=== PATIENT | female | born 1945 | race Caucasian/White ===

== ENCOUNTER 2017-05-04 06:32 | Inpatient (IN) | payer MEDICARE, MEDICAID ==
[2017-05-04] MEDS ORDERED: SODIUM CHLORIDE 0.9% 1,000 ML IV ONE (07:15)
[2017-05-04] MEDS ORDERED: ONDANSETRON 4 MG/2 ML VIAL IM STA (07:16)
[2017-05-04 07:39] LABS: Basophils % (A) 0 %; CH 34.2; CHCM 33.8; Eosinophils % (A) 0 %; HCT 45.6 % (34.0-46.0); HDW 2.36; HGB 14.7 gm/dL (11.4-16.0); Luc # (Auto) 0.03; Luc % (Auto) 1; Lymphocytes # (A) 0.6 k/uL (1.0-4.8); Lymphocytes % (A) 10 %; MCH 32.9 pg (25.0-35.0); MCHC 32.3 g/dL (31.0-37.0); MCV 101.6 fL (80.0-100.0); Mean Platelet Volume 7.3; Monocytes # (A) 0.2 k/uL (0-1.0); Monocytes % (A) 3 %; Neutrophils # (A) 4.9 k/uL (1.3-7.7); Neutrophils % (A) 86 %; RBC 4.49 m/uL (3.80-5.40); RDW 13.1 % (11.5-15.5); WBC 5.7 k/uL (3.8-10.6); WBC (Perox) 5.71
[2017-05-04 07:40] LABS: ALT 232 U/L (9-52); AST 489 U/L (14-36); Alcohol 62 mg/dL; Alkaline Phosphatase 106 U/L (38-126); Anion Gap 21 mmol/L; Blood Urea Nitrogen 9 mg/dL (7-17); Calcium 9.6 mg/dL (8.4-10.2); Carbon Dioxide 15 mmol/L (22-30); Chloride 101 mmol/L (98-107); Glucose 114 mg/dL (74-99); Non-African American GFR(MDRD) >60 (>60 ml/min/1.73 sqM); Salicylate <1.0 mg/dL; Sodium 137 mmol/L (137-145); Total Bilirubin 0.3 mg/dL (0.2-1.3); Total Protein 8.6 g/dL (6.3-8.2)
[2017-05-04 07:43] LABS: Partial Thromboplastin Time 23.8 sec (22.0-30.0); Prothrombin Time 10.3 sec (9.0-12.0)
[2017-05-04 07:50] LABS: Acetaminophen 105.9 ug/mL
[2017-05-04 07:55] LABS: Creatine Kinase 672 U/L (30-135)
[2017-05-04 08:07] LABS: Troponin I <0.012 ng/mL (0.000-0.034)
[2017-05-04 08:08] LABS: Creatine Kinase MB 13.7 ng/mL (0.0-2.4)
[2017-05-04] MEDS ORDERED: METOCLOPRAMIDE 5 MG/ML 2 ML VIAL IVP STA (08:37)
[2017-05-04] MEDS ORDERED: KETAMINE 10 MG/ML 20 ML VIAL IV ONE (09:26)
--- NOTE | 2017-05-04 11:03 | CT ---
EXAMINATION TYPE: CT brain aric barron DATE OF EXAM: 05/04/2017 COMPARISON: NONE HISTORY: Altered mental status, found on ground CT DLP: 1331.6 mGycm Automated exposure control for dose reduction was used. TECHNIQUE: CT scan of the head and cervical spine are performed without contrast. FINDINGS: BRAIN: There are generalized changes of sulcal prominence and ventriculomegaly, compatible with atrop hic change. There is diffuse periventricular white matter lucency, compatible with small vessel ische lisa change. There is no acute focal lesion, mass effect or midline shift. I do not see evidence of in tracranial blood. Visualized portions of the paranasal sinuses and mastoids are clear. No depressed skull fracture is s een. IMPRESSION: NO ACUTE INTRACRANIAL ABNORMALITY. 2. ATROPHIC CHANGE. 3. CHRONIC WHITE MATTER ISCHEMIC CHANGE. CERVICAL SPINE: There are emphysematous changes within the lungs. Prevertebral soft tissues appear normal. There is some loss of the normal cervical lordosis. There is a mild retrograde listhesis of C4 on C5. Alignment is otherwise maintained. Atlantoaxial relationships are normal. There is disc space loss a nd hypertrophic spondylosis at C4-5, C5-6 and C6-7. There is uncovertebral joint disease on the left at C2-3 and C3-4. There is a central disc protrusion present at C4-5. There are mixed spondylitic bar is at C5-6 and C6-7. There is an old fracture of the mid portion of the right clavicle which is gone on to nonunion. There is a healed right third rib fracture. No acute fractures are seen. IMPRESSION: 1. NO ACUTE OSSEOUS LESION. 2. EVIDENCE OF PREVIOUS TRAUMA TO THE RIGHT CLAVICLE AND RIGHT THIRD RIB. 3. FAIRLY MARKED DEGENERATIVE CHANGE. 4. EMPHYSEMATOUS CHANGES WITHIN THE LUNGS.
--- NOTE | 2017-05-04 11:08 | ED ---
Altered Mental Status HPI - General Chief Complaint: Altered Mental Status Stated Complaint: Altered Mental Status Time Seen by Provider: 05/04/17 07:08 Source: EMS Mode of arrival: EMS Limitations: altered mental status - History of Present Illness Initial Comments: 71 years old female, she calls with the help of the neighbors, they called the ambulance, the embolus crew noticed that she has been drinking and she also had a bowel movement was more called surgery . On arrival she was barely talking good or after her arrival home she expressed that she was trying to harm herself and a she stated that she was taking [place] murmur she said she wanted to meet her mom her mom . She is complaining about the headache neck pain no chest pain no shortness of breath she is nauseous she do not like the cervical: She is insisting, requesting treatable to call. I explained her that his cervical collar is tender to protect her. She also has been drinking because of the review of system is not very clear - Related Data Home Medications Medication Instructions Recorded Confirmed Albuterol Sulfate [Proair Hfa] 2 puff INHALATION RT-Q4H PRN 05/06/14 05/04/17 Gabapentin [Neurontin] 400 mg PO TID 05/06/14 05/04/17 Omeprazole [PriLOSEC] 20 mg PO DAILY 05/06/14 05/04/17 Allergies Allergy/AdvReac Type Severity Reaction Status Date / Time Penicillins Allergy Severe Anaphylaxis Verified 05/04/17 13:46 Review of Systems ROS Statement: Those systems with pertinent positive or pertinent negative responses have been documented in the HPI. ROS Other: All systems not noted in ROS Statement are negative. Past Medical History Past Medical History: Asthma, COPD, Deep Vein Thrombosis (DVT), Liver Disease, Rheumatoid Arthritis (RA), Seizure Disorder Additional Past Medical History / Comment(s): HX. PLEURISY A CHILD. PT HAS "COMPROMISED LUNGS" AND HAS HAD NUMEROUS BRONCHITIS AND PNEUMONIA. HX R PNEUMOTHORAX 30 YRS AGO FOLLOWING [facility]- TX WITH CHEST TUBE.SHE HAD NUMEROUS FX AND TEETH WERE KNOCKED. OUT. LIVER ENZYMES HAD BEEN ELEVATED AND COMPLETED A 3 MONTH MEDICATION TX. SHE BECAME ANEMIC DURING THIS TX- HGB IS NOW BACK TO NORMAL. HX RLS. HX OF SEIZURES SHE BELIEVES IS DUE TO RECREATIONAL. DRUG USE A TEEN. ARTHIRITIS BILATERAL KNEES/HIPS/CLAVICAL R/SHOULDERS AND HANDS. osteoporosis. hepatitis C. History of Any Multi-Drug Resistant Organisms: None Reported Past Surgical History: Tonsillectomy Additional Past Surgical History / Comment(s): TONSILLECTOMY AT AGE 6. Past Anesthesia/Blood Transfusion Reactions: No Reported Reaction Past Psychological History: No Psychological Hx Reported Smoking Status: Current some day smoker Past Alcohol Use History: Occasional Past Drug Use History: Marijuana - Past Family History Father Family Medical History: No Reported History Mother Family Medical History: Coronary Artery Disease (CAD), Diabetes Mellitus General Exam Limitations: altered mental status Course Vital Signs 05/04/17 05/04/17 05/04/17 06:35 08:42 10:00 Temperature 94.8 F L Pulse Rate 96 80 94 Respiratory 16 18 18 Rate Blood Pressure 145/74 141/65 168/88 O2 Sat by Pulse 95 98 96 Oximetry 05/04/17 05/04/17 05/04/17 10:21 10:31 10:36 Temperature Pulse Rate 114 H 144 H 127 H Respiratory 18 16 18 Rate Blood Pressure 161/88 220/130 202/117 O2 Sat by Pulse 100 100 100 Oximetry 05/04/17 05/04/17 05/04/17 10:41 10:46 12:00 Temperature Pulse Rate 100 147 H 108 H Respiratory 18 14 18 Rate Blood Pressure 185/104 219/128 173/88 O2 Sat by Pulse 96 100 96 Oximetry 05/04/17 05/04/17 05/04/17 13:00 13:54 13:57 Temperature Pulse Rate 106 H 103 H 103 H Respiratory 18 20 20 Rate Blood Pressure 193/111 156/72 154/72 O2 Sat by Pulse 98 98 98 Oximetry 05/04/17 15:15 Temperature Pulse Rate 109 H Respiratory 18 Rate Blood Pressure 144/69 O2 Sat by Pulse 99 Oximetry Emergency EKG reveals sinus tachycardia heart rate is 14 NE interval is 178 QRS duration is 68 QT/QTc is 370/486 review of this EKG does not reveal any ST elevation, noticed a mild ST depression in V4 V5 and V6 - Reevaluation(s) Reevaluation #1: 05/04/17 11:[address] sent [address] suite twice, we were not unable to complete the CT of head and brain because of the lack of cooperation then weeks white ketamine 60 mg IV finally the report and were able to get the CT of the head or neck 05/04/17 12:04 She was reassessed at 1159, she admits that she is suicidal and she is awaiting psychiatric eval at this time 05/04/17 12:05 Considering her elevated elevated LFTs though she admits that she drinks 6 packs every day and she slightly tender in the right upper quadrant area which on arrival she did know which she didn't mention no widened with the ultrasound report area 05/04/17 16:38 Last Tylenol level was within therapeutic range department of psychiatry has evaluated her, then had a lengthy discussion with me about her elevated LFTs and her nausea, she continues Zofran for the nausea and IV fluids if she still unable to keep fluids down. Psychiatry nurse discussed that with the on-call psychiatrist and he agreed to admit her, hospitalist services could be Consulted she does have a history of hepatitis C and she could follow-up with her GI doctor as outpatient Medical Decision Making - Lab Data Result diagrams: 05/04/17 07:01 05/04/17 07:01 Lab Results 05/04/17 05/04/17 05/04/17 Range/Units 07:01 07:01 07:01 WBC 5.7 (3.8-10.6) k/uL RBC 4.49 (3.80-5.40) m/uL Hgb 14.7 (11.4-16.0) gm/dL Hct 45.6 (34.0-46.0) % MCV 101.6 H (80.0-100.0) fL MCH 32.9 (25.0-35.0) pg MCHC 32.3 (31.0-37.0) g/dL RDW 13.1 (11.5-15.5) % Plt Count 265 (150-450) k/uL Neutrophils % 86 % Lymphocytes % 10 % Monocytes % 3 % Eosinophils % 0 % Basophils % 0 % Neutrophils # 4.9 (1.3-7.7) k/uL Lymphocytes # 0.6 L (1.0-4.8) k/uL Monocytes # 0.2 (0-1.0) k/uL Eosinophils # 0.0 (0-0.7) k/uL Basophils # 0.0 (0-0.2) k/uL PT (9.0-12.0) sec INR (<1.2) APTT (22.0-30.0) sec Sodium 137 (137-145) mmol/L Potassium 4.0 (3.5-5.1) mmol/L Chloride 101 (98-107) mmol/L Carbon Dioxide 15 L (22-30) mmol/L Anion Gap 21 mmol/L BUN 9 (7-17) mg/dL Creatinine 0.87 (0.52-1.04) mg/dL Est GFR (MDRD) Af Amer >60 (>60 ml/min/1.73 sqM) Est GFR (MDRD) Non-Af >60 (>60 ml/min/1.73 sqM) Glucose 114 H (74-99) mg/dL Calcium 9.6 (8.4-10.2) mg/dL Total Bilirubin 0.3 (0.2-1.3) mg/dL AST 489 H (14-36) U/L ALT 232 H (9-52) U/L Alkaline Phosphatase 106 (38-126) U/L Total Creatine Kinase 672 H (30-135) U/L CK-MB (CK-2) 13.7 H* (0.0-2.4) ng/mL CK-MB (CK-2) Rel Index 2.0 Troponin I <0.012 (0.000-0.034) ng/mL Total Protein 8.6 H (6.3-8.2) g/dL Albumin 4.8 (3.5-5.0) g/dL Urine Color Urine Appearance (Clear) Urine pH (5.0-8.0) Ur Specific [place] (1.001-1.035) Urine Protein (Negative) Urine Glucose (UA) (Negative) Urine Ketones (Negative) Urine Blood (Negative) Urine Nitrite (Negative) Urine Bilirubin (Negative) Urine Urobilinogen (<2.0) mg/dL Ur Leukocyte Esterase (Negative) Urine RBC (0-5) /hpf Urine WBC (0-5) /hpf Ur Squamous Epith Cells (0-4) /hpf Urine Bacteria (None) /hpf Hyaline Casts (0-2) /lpf Urine Mucus (None) /hpf Salicylates <1.0 mg/dL Urine Opiates Screen (NotDetected) Ur Oxycodone Screen (NotDetected) Urine Methadone Screen (NotDetected) Ur Propoxyphene Screen (NotDetected) Acetaminophen 105.9 H* ug/mL Ur Barbiturates Screen (NotDetected) U Tricyclic Antidepress (NotDetected) Ur Phencyclidine Scrn (NotDetected) Ur Amphetamines Screen (NotDetected) U Methamphetamines Scrn (NotDetected) U Benzodiazepines Scrn (NotDetected) Urine Cocaine Screen (NotDetected) U Marijuana (THC) Screen (NotDetected) Serum Alcohol 62 mg/dL 05/04/17 05/04/17 05/04/17 Range/Units 07:01 08:50 08:50 WBC (3.8-10.6) k/uL RBC (3.80-5.40) m/uL Hgb (11.4-16.0) gm/dL Hct (34.0-46.0) % MCV (80.0-100.0) fL MCH (25.0-35.0) pg MCHC (31.0-37.0) g/dL RDW (11.5-15.5) % Plt Count (150-450) k/uL Neutrophils % % Lymphocytes % % Monocytes % % Eosinophils % % Basophils % % Neutrophils # (1.3-7.7) k/uL Lymphocytes # (1.0-4.8) k/uL Monocytes # (0-1.0) k/uL Eosinophils # (0-0.7) k/uL Basophils # (0-0.2) k/uL PT 10.3 (9.0-12.0) sec INR 1.0 (<1.2) APTT 23.8 (22.0-30.0) sec Sodium (137-145) mmol/L Potassium (3.5-5.1) mmol/L Chloride (98-107) mmol/L Carbon Dioxide (22-30) mmol/L Anion Gap mmol/L BUN (7-17) mg/dL Creatinine (0.52-1.04) mg/dL Est GFR (MDRD) Af Amer (>60 ml/min/1.73 sqM) Est GFR (MDRD) Non-Af (>60 ml/min/1.73 sqM) Glucose (74-99) mg/dL Calcium (8.4-10.2) mg/dL Total Bilirubin (0.2-1.3) mg/dL AST (14-36) U/L ALT (9-52) U/L Alkaline Phosphatase (38-126) U/L Total Creatine Kinase (30-135) U/L CK-MB (CK-2) (0.0-2.4) ng/mL CK-MB (CK-2) Rel Index Troponin I (0.000-0.034) ng/mL Total Protein (6.3-8.2) g/dL Albumin (3.5-5.0) g/dL Urine Color Light Yellow Urine Appearance Clear (Clear) Urine pH 5.0 (5.0-8.0) Ur Specific [place] 1.015 (1.001-1.035) Urine Protein Trace H (Negative) Urine Glucose (UA) Negative (Negative) Urine Ketones Negative (Negative) Urine Blood Small H (Negative) Urine Nitrite Negative (Negative) Urine Bilirubin Negative (Negative) Urine Urobilinogen <2.0 (<2.0) mg/dL Ur Leukocyte Esterase Trace H (Negative) Urine RBC 1 (0-5) /hpf Urine WBC 1 (0-5) /hpf Ur Squamous Epith Cells <1 (0-4) /hpf Urine Bacteria Rare H (None) /hpf Hyaline Casts 1 (0-2) /lpf Urine Mucus Rare H (None) /hpf Salicylates mg/dL Urine Opiates Screen Detected H (NotDetected) Ur Oxycodone Screen Not Detected (NotDetected) Urine Methadone Screen Not Detected (NotDetected) Ur Propoxyphene Screen Not Detected (NotDetected) Acetaminophen ug/mL Ur Barbiturates Screen Not Detected (NotDetected) U Tricyclic Antidepress Not Detected (NotDetected) Ur Phencyclidine Scrn Not Detected (NotDetected) Ur Amphetamines Screen Not Detected (NotDetected) U Methamphetamines Scrn Not Detected (NotDetected) U Benzodiazepines Scrn Not Detected (NotDetected) Urine Cocaine Screen Not Detected (NotDetected) U Marijuana (THC) Screen Not Detected (NotDetected) Serum Alcohol mg/dL 05/04/17 05/04/17 Range/Units 09:07 13:51 WBC (3.8-10.6) k/uL RBC (3.80-5.40) m/uL Hgb (11.4-16.0) gm/dL Hct (34.0-46.0) % MCV (80.0-100.0) fL MCH (25.0-35.0) pg MCHC (31.0-37.0) g/dL RDW (11.5-15.5) % Plt Count (150-450) k/uL Neutrophils % % Lymphocytes % % Monocytes % % Eosinophils % % Basophils % % Neutrophils # (1.3-7.7) k/uL Lymphocytes # (1.0-4.8) k/uL Monocytes # (0-1.0) k/uL Eosinophils # (0-0.7) k/uL Basophils # (0-0.2) k/uL PT (9.0-12.0) sec INR (<1.2) APTT (22.0-30.0) sec Sodium (137-145) mmol/L Potassium (3.5-5.1) mmol/L Chloride (98-107) mmol/L Carbon Dioxide (22-30) mmol/L Anion Gap mmol/L BUN (7-17) mg/dL Creatinine (0.52-1.04) mg/dL Est GFR (MDRD) Af Amer (>60 ml/min/1.73 sqM) Est GFR (MDRD) Non-Af (>60 ml/min/1.73 sqM) Glucose (74-99) mg/dL Calcium (8.4-10.2) mg/dL Total Bilirubin (0.2-1.3) mg/dL AST (14-36) U/L ALT (9-52) U/L Alkaline Phosphatase (38-126) U/L Total Creatine Kinase (30-135) U/L CK-MB (CK-2) (0.0-2.4) ng/mL CK-MB (CK-2) Rel Index Troponin I (0.000-0.034) ng/mL Total Protein (6.3-8.2) g/dL Albumin (3.5-5.0) g/dL Urine Color Urine Appearance (Clear) Urine pH (5.0-8.0) Ur Specific [place] (1.001-1.035) Urine Protein (Negative) Urine Glucose (UA) (Negative) Urine Ketones (Negative) Urine Blood (Negative) Urine Nitrite (Negative) Urine Bilirubin (Negative) Urine Urobilinogen (<2.0) mg/dL Ur Leukocyte Esterase (Negative) Urine RBC (0-5) /hpf Urine WBC (0-5) /hpf Ur Squamous Epith Cells (0-4) /hpf Urine Bacteria (None) /hpf Hyaline Casts (0-2) /lpf Urine Mucus (None) /hpf Salicylates mg/dL Urine Opiates Screen (NotDetected) Ur Oxycodone Screen (NotDetected) Urine Methadone Screen (NotDetected) Ur Propoxyphene Screen (NotDetected) Acetaminophen 73.2 H* 27.4 ug/mL Ur Barbiturates Screen (NotDetected) U Tricyclic Antidepress (NotDetected) Ur Phencyclidine Scrn (NotDetected) Ur Amphetamines Screen (NotDetected) U Methamphetamines Scrn (NotDetected) U Benzodiazepines Scrn (NotDetected) Urine Cocaine Screen (NotDetected) U Marijuana (THC) Screen (NotDetected) Serum Alcohol mg/dL Disposition Clinical Impression: Acute alcohol intoxication, Suicide attempt, Acetaminophen toxicity, Elevated liver function tests, Altered mental status Disposition: ADMITTED IP TO THIS HOSP Condition: Good Referrals: Bailey Mart MD [Primary Care Provider] - 1-2 days
--- NOTE | 2017-05-04 11:44 | XR ---
EXAMINATION TYPE: XR chest 1V portable DATE OF EXAM: 05/04/2017 HISTORY: altered mental status. REFERENCE: NONE. FINDINGS: There is colonic interposition on the right. There is platelike atelectasis at both lung bases. The lungs are otherwise clear. Pleural spaces are clear. The heart is not enlarged. IMPRESSION: MILD, BIBASILAR ATELECTASIS.
[2017-05-04] MEDS ORDERED: SODIUM CHLORIDE 0.9% 1,000 ML IV STA ×2 (12:03)
--- NOTE | 2017-05-04 12:25 | US ---
EXAMINATION TYPE: US abdomen limited DATE OF EXAM: 05/04/2017 COMPARISON: NONE CLINICAL HISTORY: Pain. N/V, elevated enzymes EXAM MEASUREMENTS: Liver Length: 16.0 cm Gallbladder Wall: 0.2 cm CBD: 0.9 cm CHD: 0.7 cm Right Kidney: 10.3 x 5.1 x 4.2 cm limited visualization of liver due to overlying bowel gas. Patient unable to turn LLD for additional GB images. Pancreas: Tail obscured by overlying bowel gas. Main pancreatic duct= 2.7 mm Liver: limited visualization due to overlying bowel gas. WNL as seen. Gallbladder: wnl Evidence for sonographic Riley's sign: neg CBD: dilated CHD: dilated Right Kidney: wnl Limited views of the pancreas are unremarkable. The pancreatic duct is mildly prominent measuring 2.7 mm. Limited views of the liver were obtained. The gallbladder is unremarkable. Gallbladder wall measures 2.4 mm. The distal common hepatic duct trina sures 7.3 mm. This is not unusual in this age group. Right kidney is unremarkable.. IMPRESSION: Limited study demonstrating no definite acute abnormality.
[2017-05-04] MEDS ORDERED: LABETALOL 5 MG/ML VIAL MDV IVP STA (13:06)
[2017-05-04 13:11] LABS: Appearance,Urine Clear (Clear); Bacteria,Urine Rare /hpf; Bilirubin,Urine Negative (Negative); Glucose,Urine (UA) Negative (Negative); Ketones,Urine Negative (Negative); Leukocyte Esterase,Urine Trace (Negative); Mucus,Urine Rare /hpf; Nitrite,Urine Negative (Negative); Particle Count 3816; Protein,Urine Trace (Negative); RBC,Urine 1 /hpf (0-5); Specific Gravity,Urine 1.015 (1.001-1.035); Squamous Epithelial Cell,Urine <1 /hpf (0-4); UA Billing (MACRO vs. MICRO) MICRO; Urobilinogen,Urine <2.0 mg/dL (<2.0); WBC,Urine 1 /hpf (0-5)
[2017-05-04] MEDS ORDERED: ONDANSETRON 4 MG/2 ML VIAL IVP STA (15:42)
[2017-05-04] MEDS ORDERED: ONDANSETRON 4 MG/2 ML VIAL IVP PRN (16:44)
[2017-05-04] MEDS ORDERED: MAGNESIUM HYDROXIDE 2,400 MG/10 ML CUP PO PRN (16:51)
[2017-05-04] MEDS ORDERED: LORazepam 1 MG TAB PO PRN (16:51)
[2017-05-04] MEDS ORDERED: MAG HYDROX/AL HYDROX/SIMETH 30 ML CUP PO PRN (16:51)
[2017-05-04] MEDS ORDERED: ONDANSETRON 4 MG TAB PO PRN (17:00)
[2017-05-04 18:06] LABS: Glucose,Whole Blood 105 mg/dL (75-99)
[2017-05-04] MEDS: GABAPENTIN 400 MG CAP PO SCH (21:52)
[2017-05-04] MEDS: LORazepam 1 MG TAB PO SCH (21:53)
[2017-05-05] MEDS: ALBUTEROL INHALER 60 PUFF/8 GM INHALER INHALATION PRN ×4 (07:53→20:56)
[2017-05-05] MEDS ORDERED: NON-FORMULARY DRUG (Omeprazole [Prilosec] 20 MG) PO SCH (09:00)
[2017-05-05] MEDS: GABAPENTIN 400 MG CAP PO SCH ×3 (09:40→21:56)
[2017-05-05] MEDS: NICOTINE 14MG/24HR PATCH TRANSDERM SCH ×2 (09:40→10:01)
[2017-05-05] MEDS: LORazepam 1 MG TAB PO SCH ×2 (09:40→21:56)
[2017-05-05] MEDS: FOLIC ACID 1 MG TAB PO SCH (09:40)
[2017-05-05] MEDS: PANTOPRAZOLE 40 MG TABLET PO SCH (09:40)
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
[2017-05-05 10:37] LABS: ALT 182 U/L (9-52); AST 327 U/L (14-36); Alkaline Phosphatase 80 U/L (38-126); Anion Gap 11 mmol/L; Blood Urea Nitrogen 12 mg/dL (7-17); Calcium 9.5 mg/dL (8.4-10.2); Carbon Dioxide 21 mmol/L (22-30); Chloride 105 mmol/L (98-107); Glucose 98 mg/dL (74-99); Non-African American GFR(MDRD) >60 (>60 ml/min/1.73 sqM); Potassium 4.5 mmol/L (3.5-5.1); Sodium 137 mmol/L (137-145); Total Bilirubin 0.5 mg/dL (0.2-1.3); Total Protein 7.5 g/dL (6.3-8.2)
[2017-05-05] MEDS: SERTRALINE 25 MG TAB PO SCH (11:19)
[2017-05-05] MEDS: NICOTINE 21MG/24HR PATCH TRANSDERM SCH (11:19)
[2017-05-05] MEDS: THIAMINE 100 MG TAB PO SCH (11:22)
[2017-05-05] MEDS: MULTIVITAMINS, THERA 1 EACH TAB PO SCH (11:22)
--- NOTE | 2017-05-05 15:25 | P.CONS ---
History of Present Illness - Reason for Consult Consult date: 05/05/17 Medical management Requesting physician: Pasquale Tejada - Chief Complaint Depression - History of Present Illness This is a 71-year-old female with a known history of depression and previous suicide attempt about 20 years ago. She's had previous psychiatric hospitalizations as well. She also has a known history of asthma, COPD, liver disease with a possible hepatitis C, rheumatoid arthritis, seizure secondary to drugs. Several years since last seizure. Also has nicotine dependence and alcohol abuse. Patient has been admitted to the psychiatric unit for overdose on [place] as well as drinking a sixpack of beer. Patient was having auditory hallucinations that her mother was calling her home. She ingested numerous pills of the [place] they were unable to quantify the exact amount. She became sick and vomited. A neighbor called 911. She was brought into the emergency room and evaluated for attempted suicide. She's been admitted to the psychiatric unit. Patient reports that she has not been on any antidepressants. However she lives at home alone and was feeling more depressed. We have been consulted for medical management. Patient denies any nausea or vomiting. Denies any chest pain or shortness of breath. Denies any abdominal pain denies any bowel movement changes or urinary symptoms. Her ALT was elevated to 232 and AST was 489 on admission. Abdominal ultrasound was negative. Patient's CPK level is elevated. We'll start IV fluids. Radiology report for CAT scan on of the brain and neck shows no acute changes. However did mention that patient had been found on the ground. Likely that been contributing to her acute rhabdomyolysis. Patient is complaining of pain in her right fifth finger. X-ray has been ordered. Patient doesn't remember falling. But reports pain can of out of it when she presented to the hospital. She did have elevated alcohol level and evidence of alcohol intoxication. Review of Systems Please refer to HPI otherwise unremarkable Past Medical History Past Medical History: Asthma, COPD, Deep Vein Thrombosis (DVT), Liver Disease, Rheumatoid Arthritis (RA), Seizure Disorder Additional Past Medical History / Comment(s): HX. PLEURISY A CHILD. PT HAS "COMPROMISED LUNGS" AND HAS HAD NUMEROUS BRONCHITIS AND PNEUMONIA. HX R PNEUMOTHORAX 30 YRS AGO FOLLOWING [facility]- TX WITH CHEST TUBE.SHE HAD NUMEROUS FX AND TEETH WERE KNOCKED. OUT. LIVER ENZYMES HAD BEEN ELEVATED AND COMPLETED A 3 MONTH MEDICATION TX. SHE BECAME ANEMIC DURING THIS TX- HGB IS NOW BACK TO NORMAL. HX RLS. HX OF SEIZURES SHE BELIEVES IS DUE TO RECREATIONAL. DRUG USE A TEEN. ARTHIRITIS BILATERAL KNEES/HIPS/CLAVICAL R/SHOULDERS AND HANDS. osteoporosis. hepatitis C. History of Any Multi-Drug Resistant Organisms: None Reported Past Surgical History: Tonsillectomy Additional Past Surgical History / Comment(s): TONSILLECTOMY AT AGE 6. Past Anesthesia/Blood Transfusion Reactions: No Reported Reaction Past Psychological History: No Psychological Hx Reported Smoking Status: Current some day smoker Past Alcohol Use History: Occasional Past Drug Use History: Marijuana - Past Family History Father Family Medical History: No Reported History Mother Family Medical History: Coronary Artery Disease (CAD), Diabetes Mellitus Medications and Allergies Home Medications Medication Instructions Recorded Confirmed Type Albuterol Sulfate [Proair Hfa] 2 puff INHALATION RT-Q4H PRN 05/06/14 05/04/17 History Gabapentin [Neurontin] 400 mg PO TID 05/06/14 05/04/17 History Omeprazole [PriLOSEC] 20 mg PO DAILY 05/06/14 05/04/17 History Allergies Allergy/AdvReac Type Severity Reaction Status Date / Time Penicillins Allergy Severe Anaphylaxis Verified 05/04/17 13:46 Physical Exam Vitals: Vital Signs Temp Pulse Pulse Resp BP BP Pulse Ox 05/05/17 07:42 93 L 05/05/17 06:34 98.3 F 124 H 18 144/69 95 05/04/17 18:25 98.7 F 111 H 15 147/76 95 05/04/17 17:26 98 F 107 H 18 163/88 100 05/04/17 17:09 98 F 107 H 18 163/88 100 05/04/17 15:15 109 H 18 144/69 99 Head normocephalic Neck supple Lungs clear to auscultation bilaterally no wheezing or crackles Heart regular rate and rhythm S1-S2, no rub or gallop Abdomen is soft nontender nondistended positive bowel sounds no hepatosplenomegaly Extremities no edema Neuro alert and orientated to 3 Right hand tender with palpation of the right pinky finger. Pain with movement. Results CBC & Chem 7: 05/04/17 07:01 05/05/17 09:33 Labs: Abnormal Lab Results - Last 24 Hours (Table) 1005/05/17 05/05/17 Range/Units 17:36 09:33 09:33 Carbon Dioxide 21 L (22-30) mmol/L POC Glucose (mg/dL) 105 H (75-99) mg/dL AST 327 H (14-36) U/L ALT 182 H (9-52) U/L Creatine Kinase 1291 H (30-135) U/L Assessment and Plan Plan: 1. Major depressive disorder with suicide attempt with [place] and alcohol consumption. Patient has been admitted to the psychiatric unit 2. Alcohol dependence: Continue with Ativan as needed for withdrawal symptoms. Also continue the folic acid thiamine and multivitamin 3. Acute rhabdomyolysis: Patient was found on ground. Unknown timeframe. CPK level is 1291. We'll start IV fluids normal saline at 100 mL an hour. Repeat CPK level in a.m. 4. History of hepatitis C 5. Nicotine dependence: Discussed smoking cessation. Continue nicotine patch 6. Acute hepatitis secondary to alcohol and Tylenol. Continue to monitor AST and ALT. Abdominal ultrasound negative. 7. History of rheumatoid arthritis 8. History of COPD: Stable continue the albuterol inhaler as needed. 9. Right hand pain: X-ray of hand ordered. This also may be contributing to some of her elevated CPK levels. Thank you for this consultation. We will follow along as needed. Time with Patient: Greater than 30 (Greater than 50% of the total time spent in counseling and coordination of care.I performed an examination of the patient and discussed their management with the physician Baker Head. I have reviewed the Physician Baker Head's notes and agree with the documented findings and plan of care)
[2017-05-05] MEDS: SODIUM CHLORIDE 0.9% 1,000 ML IV SCH (15:27)
--- NOTE | 2017-05-06 08:39 | XR ---
Right hand HISTORY: Right hand pain 3 views of the right, no comparisons Bone mineralization is decreased. Angiocath present superimposed over the distal right ulna. Mild rem odeling present at the radiocarpal joint. Suspect geode formation within the lunate, mild arthropathy present with joint space loss at the interphalangeal joints. Minimal spurring at the carpometacarpal joint of the first digit, distal joints of the second digit. IMPRESSION: Osteoarthritis.
[2017-05-06] MEDS: NICOTINE 21MG/24HR PATCH TRANSDERM SCH (08:49)
[2017-05-06] MEDS: GABAPENTIN 400 MG CAP PO SCH ×3 (08:50→21:16)
[2017-05-06] MEDS: LORazepam 1 MG TAB PO SCH ×2 (08:50→21:16)
[2017-05-06] MEDS: SERTRALINE 25 MG TAB PO SCH (08:50)
[2017-05-06] MEDS: PANTOPRAZOLE 40 MG TABLET PO SCH (08:50)
[2017-05-06] MEDS: ALBUTEROL INHALER 60 PUFF/8 GM INHALER INHALATION PRN ×4 (09:16→20:23)
--- NOTE | 2017-05-06 09:19 | P.PN ---
Progress Note - Text Interval history: The patient is found in her room she follows me to an interview room. She reports that her mood remains depressed. She states today that she wished she never felt physically sick after the overdose so that she could've . Because she felt physically ill after the overdose she called for help. Later she states she didn't want to because then her family wouldn't get life insurance money. She states "I'm still mixed up overall of this". She reports sleeping well last night is documented she slept 7 hours. She states she received more IV fluids. She is making attempts to eat more. She does not sense any alcohol withdrawal tremors. Mental status exam: The patient is a frail-appearing female. She is ambulating with a walker. She is dressed in 2 hospital gowns. She wears eyeglasses. She has long hair and has a disheveled appearance. Hygiene is adequate. She reports her mood continues to be depressed she continues to have hopelessness thinking. No homicidal ideation no report of auditory or visual hallucinations or specific delusions. Insight and judgment limited. She demonstrates no verbal or physical aggressiveness. She demonstrates no tremor with outstretched hands. She is oriented to person place and date. Affect is bland. Plan: The patient will continue on her current medication. Vital signs are reviewed. Recent labs reviewed. Her liver enzymes are reducing. We will continue to monitor for safety and encourage her participation in the milieu. She appears to be ambulating sufficiently with use of walker.
[2017-05-06 09:49] LABS: ALT 130 U/L (9-52); AST 176 U/L (14-36); Alkaline Phosphatase 75 U/L (38-126); Anion Gap 9 mmol/L; Blood Urea Nitrogen 9 mg/dL (7-17); Calcium 9.3 mg/dL (8.4-10.2); Carbon Dioxide 24 mmol/L (22-30); Chloride 105 mmol/L (98-107); Creatine Kinase 601 U/L (30-135); Glucose 190 mg/dL (74-99); Non-African American GFR(MDRD) >60 (>60 ml/min/1.73 sqM); Potassium 3.9 mmol/L (3.5-5.1); Sodium 138 mmol/L (137-145); Total Bilirubin 0.6 mg/dL (0.2-1.3); Total Protein 7.2 g/dL (6.3-8.2)
[2017-05-06] MEDS: SODIUM CHLORIDE 0.9% 1,000 ML IV SCH ×6 (11:17→23:24)
[2017-05-06] MEDS: FOLIC ACID 1 MG TAB PO SCH (12:32)
[2017-05-06] MEDS: THIAMINE 100 MG TAB PO SCH (12:33)
[2017-05-06] MEDS: MULTIVITAMINS, THERA 1 EACH TAB PO SCH (12:33)
[2017-05-07] MEDS: NICOTINE 21MG/24HR PATCH TRANSDERM SCH (08:40)
[2017-05-07] MEDS: PANTOPRAZOLE 40 MG TABLET PO SCH (08:41)
[2017-05-07] MEDS: SERTRALINE 25 MG TAB PO SCH (08:41)
[2017-05-07] MEDS: GABAPENTIN 400 MG CAP PO SCH ×3 (08:41→21:28)
[2017-05-07] MEDS: LORazepam 1 MG TAB PO SCH (08:43)
[2017-05-07] MEDS: ALBUTEROL INHALER 60 PUFF/8 GM INHALER INHALATION PRN ×3 (09:07→21:34)
[2017-05-07 09:57] LABS: ALT 102 U/L (9-52); AST 118 U/L (14-36); Alkaline Phosphatase 76 U/L (38-126); Anion Gap 10 mmol/L; Blood Urea Nitrogen 8 mg/dL (7-17); Calcium 9.4 mg/dL (8.4-10.2); Carbon Dioxide 25 mmol/L (22-30); Chloride 106 mmol/L (98-107); Creatine Kinase 255 U/L (30-135); Glucose 159 mg/dL (74-99); Non-African American GFR(MDRD) >60 (>60 ml/min/1.73 sqM); Potassium 3.8 mmol/L (3.5-5.1); Sodium 141 mmol/L (137-145); Total Bilirubin 0.4 mg/dL (0.2-1.3); Total Protein 6.9 g/dL (6.3-8.2)
--- NOTE | 2017-05-07 10:21 | P.PN ---
Progress Note - Text Interval history: The patient is found in her room she follows me to an interview room. She states that she slept very well last evening. She states that she did eat breakfast this morning. She noted having a feeling of dizziness after breakfast. Vitals from this morning were reviewed and within normal limits. She states she no longer feels dizzy. She is ambulating appropriately with her walker. She continues to identify symptoms of depression. She reports feelings of loneliness. In feeling underproductive at home. She is describing no side effects from the Zoloft. We discussed the importance of her maintaining sobriety from her alcohol use. Mental status exam: The patient is alert she has a disheveled appearance she is dressed in hospital gowns. She is wearing her eyeglasses and is ambulating with her walker slowly. She endorses a depressed mood with hopelessness thinking. She is tearful during the session briefly. She continues to feel she would rather have with the overdose attempt. She is endorsing no homicidal ideation. She is endorsing no auditory or visual hallucinations or any specific delusions. There is no observable evidence of psychosis. She does not appear hypomanic or manic. Insight and judgment limited. She remains oriented to person place and date. She demonstrates no verbal or physical aggressiveness. Plan: We will titrate the Zoloft to 50 mg daily to address her ongoing symptoms of depression. She is encouraged to participate in the milieu. Vital signs reviewed. She is encouraged to continue adequately hydrating. Recent lab results reviewed her liver enzymes are normalizing. She requires continued psychiatric hospitalization for acute safety risk.
[2017-05-07] MEDS: FOLIC ACID 1 MG TAB PO SCH (13:18)
[2017-05-07] MEDS: MULTIVITAMINS, THERA 1 EACH TAB PO SCH (13:18)
[2017-05-07] MEDS: THIAMINE 100 MG TAB PO SCH (13:18)
[2017-05-07] MEDS: LORazepam 0.5 MG TAB PO SCH (21:28)
[2017-05-08] MEDS: SERTRALINE 50 MG TAB PO SCH (08:15)
[2017-05-08] MEDS: PANTOPRAZOLE 40 MG TABLET PO SCH (08:15)
[2017-05-08] MEDS: NICOTINE 21MG/24HR PATCH TRANSDERM SCH (08:15)
[2017-05-08] MEDS: GABAPENTIN 400 MG CAP PO SCH ×3 (08:15→21:06)
[2017-05-08] MEDS: LORazepam 0.5 MG TAB PO SCH ×2 (08:16→21:06)
[2017-05-08] MEDS: ALBUTEROL INHALER 60 PUFF/8 GM INHALER INHALATION PRN ×3 (09:07→21:04)
[2017-05-08 09:09] LABS: ALT 91 U/L (9-52); AST 91 U/L (14-36); Alkaline Phosphatase 76 U/L (38-126); Anion Gap 8 mmol/L; Blood Urea Nitrogen 10 mg/dL (7-17); Calcium 9.5 mg/dL (8.4-10.2); Carbon Dioxide 28 mmol/L (22-30); Chloride 107 mmol/L (98-107); Glucose 91 mg/dL (74-99); Non-African American GFR(MDRD) >60 (>60 ml/min/1.73 sqM); Potassium 4.4 mmol/L (3.5-5.1); Sodium 143 mmol/L (137-145); Total Bilirubin 0.4 mg/dL (0.2-1.3); Total Protein 6.9 g/dL (6.3-8.2)
[2017-05-08] MEDS: POLYETHYLENE GLYCOL 3350 17 GM POWD.PACK PO SCH (11:00)
--- NOTE | 2017-05-08 11:45 | P.PN ---
Progress Note - Text Interval history: The patient is found in her room she follows me to an interview room. She states she has not been participating in groups today so far. She finds herself conflicted in terms of mood. She has feelings of sadness because she "failed" in killing herself. Conversely she also has feelings that she doesn't want to kill herself and states she would not do it again. She discusses her lack of support and identifies only 2 people that appeared to be casually in contact with her. We reviewed her current medication. We again discussed the need for her to continue abstaining from all alcohol use. Mental status exam: The patient is alert she has a disheveled appearance she is dressed in hospital gowns. She is observed ambulating the hallway with her walker. She describes her mood as being sad and depressed. Affect is constricted. She has conflicting thoughts regarding her recent suicide attempt. She is reporting no thoughts of harming others. She is endorsing no auditory or visual hallucinations or specific delusions. She does not appear hypomanic or manic. She remains oriented to person place and date. She demonstrates no verbal or physical aggressiveness. Plan: The patient will continue on her current medication. We will continue to monitor for safety. She is encouraged to participate in the milieu. We will plan to taper her off of Ativan during the course of the stay. Her conflicting thoughts regarding her recent suicide attempt are of concern and she is not appropriate for discharge at this time.
[2017-05-08] MEDS: FOLIC ACID 1 MG TAB PO SCH (12:16)
[2017-05-08] MEDS: MULTIVITAMINS, THERA 1 EACH TAB PO SCH (12:16)
[2017-05-08] MEDS: THIAMINE 100 MG TAB PO SCH (12:18)
[2017-05-09] MEDS: NICOTINE 21MG/24HR PATCH TRANSDERM SCH (08:35)
[2017-05-09] MEDS: POLYETHYLENE GLYCOL 3350 17 GM POWD.PACK PO SCH (08:35)
[2017-05-09] MEDS: LORazepam 0.5 MG TAB PO SCH (08:35)
[2017-05-09] MEDS: SERTRALINE 50 MG TAB PO SCH (08:35)
[2017-05-09] MEDS: PANTOPRAZOLE 40 MG TABLET PO SCH (08:35)
[2017-05-09] MEDS: GABAPENTIN 400 MG CAP PO SCH ×3 (08:35→21:10)
[2017-05-09] MEDS: ALBUTEROL INHALER 60 PUFF/8 GM INHALER INHALATION PRN ×3 (09:12→21:49)
--- NOTE | 2017-05-09 11:09 | P.PN ---
Progress Note - Text Interval history: The patient is found in the hallway she follows me to an interview room. She reports that her mood is improving. She was able to sleep last night. She reports having some breathing difficulties morning but this was addressed with her inhaler. She feels those symptoms have resolved now. She has been attending group. She identified an individual in her apartment complex that social group worker did speak to and social work will attempt to contact. The patient reports that she has been eating. She has no concerns regarding her medication. Mental status exam: The patient is alert. She is ambulating successfully with her walker. She is dressed in hospital attire. Eye contact is appropriate speech is fluent and spontaneous nonpressured. She feels her mood is mildly improved from the past several days. She feels safe here in the hospital. She is reporting no homicidal ideation. She reports no auditory or visual hallucinations she endorses no specific delusions. She does not appear hypomanic or manic. Insight and judgment improving. She demonstrates no verbal or physical aggressiveness. Plan: The patient will continue on her current psychotropic medication. We will consider discharging her Friday if she demonstrates sufficient clinical improvement. Vital signs reviewed. We will change the Ativan from scheduled to as needed. There is no evidence of alcohol withdrawal. She is encouraged to continue participating in the milieu and we will continue monitoring her for safety.
[2017-05-09] MEDS: FOLIC ACID 1 MG TAB PO SCH (12:04)
[2017-05-09] MEDS: THIAMINE 100 MG TAB PO SCH (12:04)
[2017-05-09] MEDS: MULTIVITAMINS, THERA 1 EACH TAB PO SCH (12:04)
[2017-05-09] MEDS: LORazepam 0.5 MG TAB PO PRN (21:11)
[2017-05-10] MEDS: NICOTINE 21MG/24HR PATCH TRANSDERM SCH (08:39)
[2017-05-10] MEDS: POLYETHYLENE GLYCOL 3350 17 GM POWD.PACK PO SCH (08:39)
[2017-05-10] MEDS: GABAPENTIN 400 MG CAP PO SCH ×3 (08:39→21:28)
[2017-05-10] MEDS: SERTRALINE 50 MG TAB PO SCH (08:39)
[2017-05-10] MEDS: PANTOPRAZOLE 40 MG TABLET PO SCH (08:39)
[2017-05-10] MEDS: ALBUTEROL INHALER 60 PUFF/8 GM INHALER INHALATION PRN ×3 (09:16→22:00)
[2017-05-10] MEDS: THIAMINE 100 MG TAB PO SCH (13:28)
[2017-05-10] MEDS: FOLIC ACID 1 MG TAB PO SCH (13:28)
[2017-05-10] MEDS: MULTIVITAMINS, THERA 1 EACH TAB PO SCH (13:29)
--- NOTE | 2017-05-10 16:45 | P.PN ---
Progress Note - Text Progress Note Date: 05/10/17 Interval history: Patient seen in cross coverage today for Dr. Tejada. She reports that her mood is improved. She is attending groups. She does not voice any adverse psychotropic medication side effects. Mental status exam: She is alert and cooperative with the interview. Her speech is fluent, not rapid or pressured. Her thought processes are organized. Her mood is described as "fine." She denies any thoughts of harm to self others no evidence of active psychosis or any agitation. Plan: We'll maintain current psychotropic medication regimen. We'll continue to monitor her mood and monitor regarding any thoughts of suicide. Continue to monitor for any medication side effects. We'll continue to cover this patient for Dr. Tejada through the weekend.
[2017-05-10] MEDS: LORazepam 0.5 MG TAB PO PRN (21:28)
[2017-05-11] MEDS: ALBUTEROL INHALER 60 PUFF/8 GM INHALER INHALATION PRN ×3 (09:36→20:28)
[2017-05-11] MEDS: NICOTINE 21MG/24HR PATCH TRANSDERM SCH (09:42)
[2017-05-11] MEDS: PANTOPRAZOLE 40 MG TABLET PO SCH (09:42)
[2017-05-11] MEDS: GABAPENTIN 400 MG CAP PO SCH ×3 (09:42→22:27)
[2017-05-11] MEDS: POLYETHYLENE GLYCOL 3350 17 GM POWD.PACK PO SCH (09:43)
[2017-05-11] MEDS: SERTRALINE 50 MG TAB PO SCH (10:24)
[2017-05-11] MEDS: THIAMINE 100 MG TAB PO SCH (12:41)
[2017-05-11] MEDS: FOLIC ACID 1 MG TAB PO SCH (12:41)
[2017-05-11] MEDS: MULTIVITAMINS, THERA 1 EACH TAB PO SCH (12:41)
[2017-05-11] MEDS: LORazepam 0.5 MG TAB PO PRN (18:43)
--- NOTE | 2017-05-11 19:41 | P.PN ---
Progress Note - Text Progress Note Date: 05/11/17 Interval history: Patient seen in cross coverage today for Dr. Tejada. She was feeling shaky a little earlier and received an Ativan and now currently feels better and less shaky. She wonders if is still possibly related to some withdrawal and we also talked about possibility of some anxiety. She does currently feel better. She seems to be tolerating the psychotropic medication well. Mental status exam: She is alert and cooperative with the interview. She denies any thoughts of harm to self or others. Her mood seems to be doing well overall. She does not show any active evidence of psychosis. There is no agitation present. Plan: Patient will be maintained on current psychotropic medication regimen. Monitor for any medication side effects, continue to monitor her mood and level of anxiety. Dr. Tejada will resume care this patient starting tomorrow.
[2017-05-11] MEDS ORDERED: LORazepam 0.5 MG TAB PO ONE (22:45)
[2017-05-12] MEDS: ALBUTEROL INHALER 60 PUFF/8 GM INHALER INHALATION PRN ×3 (09:11→19:07)
[2017-05-12] MEDS: NICOTINE 21MG/24HR PATCH TRANSDERM SCH (09:21)
[2017-05-12] MEDS: GABAPENTIN 400 MG CAP PO SCH ×3 (09:22→21:05)
[2017-05-12] MEDS: SERTRALINE 25 MG TAB PO SCH (09:22)
[2017-05-12] MEDS: PANTOPRAZOLE 40 MG TABLET PO SCH (09:22)
[2017-05-12] MEDS: POLYETHYLENE GLYCOL 3350 17 GM POWD.PACK PO SCH (09:23)
--- NOTE | 2017-05-12 10:20 | P.PN ---
Progress Note - Text Interval history: The patient is found in her room she follows me to an interview room. She reports having what appears to be a panic attack yesterday. She was concerned it was related to alcohol withdrawal but that seems unlikely. Her vital signs have been within normal limits over the last several days. She does admit to feeling anxious about going home. We discussed that we would not be able to use the Ativan as an outpatient. We continue discussed the importance of her abstaining from alcohol use. The patient reports attending groups. She states that she has been eating. We discussed titrating the Zoloft further and she is agreeable. Mental status exam: The patient is a female appearing her stated age she ambulated to the office without use of her walker. she demonstrated no ataxia with gait. She continues to be dressed in hospital attire. She has spontaneous speech. Overall she feels her mood is improving. She endorses some nervousness regarding going home. She is reporting no acute suicidal or homicidal ideation intent or plan. There is no evidence of psychosis hypomania or efrain. Insight and judgment is improving. She demonstrates no verbal or physical aggressiveness. Plan: The patient will continue on the Zoloft but we will increase the dose to 75 mg daily. We discussed that we would not be continuing the Ativan as an outpatient. Vital signs reviewed. We will anticipate a discharge tomorrow. I will confer with social work to see if they were able to reach the patient's friend Rosanne.
[2017-05-12] MEDS: FOLIC ACID 1 MG TAB PO SCH (12:15)
[2017-05-12] MEDS: MULTIVITAMINS, THERA 1 EACH TAB PO SCH (12:15)
[2017-05-12] MEDS: THIAMINE 100 MG TAB PO SCH (12:15)
[2017-05-12] MEDS: LORazepam 0.5 MG TAB PO PRN (21:05)
[2017-05-13 07:01] VITALS: BP 117/60; PULSE 71; RESP 16; TEMP 99.1
[2017-05-13] MEDS: NICOTINE 21MG/24HR PATCH TRANSDERM SCH (08:31)
[2017-05-13] MEDS: POLYETHYLENE GLYCOL 3350 17 GM POWD.PACK PO SCH (08:31)
[2017-05-13] MEDS: PANTOPRAZOLE 40 MG TABLET PO SCH (08:32)
[2017-05-13] MEDS: GABAPENTIN 400 MG CAP PO SCH (08:32)
[2017-05-13] MEDS: SERTRALINE 25 MG TAB PO SCH (08:32)
[2017-05-13] MEDS: LORazepam 0.5 MG TAB PO PRN (08:45)
--- NOTE | 2017-05-13 08:55 | P.DS ---
Providers Date of admission: 05/04/17 16:43 Expected date of discharge: 05/12/17 Attending physician: Pasquale Tejada Consults: 05/04/17 16:51 Consult Physician Routine Consulting Provider: Bailey Mart Consult Reason/Comments: follow up H & P Do you want consulting provider notified?: Yes Primary care physician: Bailey Mart - Discharge Diagnosis(es) (1) Major depressive disorder, recurrent severe without psychotic features Current Visit: Yes Status: Acute Priority: High (2) Alcohol use disorder Current Visit: Yes Status: Acute Priority: High Hospital Course: Brief summary of admission note: This patient is a 71-year-old single female who was admitted to the mental health unit through the emergency room after she attempted suicide via overdose with Aurelia and alcohol. The patient states that she had been consuming her usual 6 pack of beer and heard her mother "called me home". Subsequently she ingested numerous Aurelia tablets. She began to feel sick and vomited at that point she was fearful and called for help. For full details please refer to my psychiatric evaluation dated 2016. Summary of hospital course: The patient was admitted to the mental health unit she signed in voluntarily. We reviewed her presenting symptoms and medication options. For depressive and anxiety symptoms we decided to initiate Zoloft and titrated to 75 mg daily during the course of her stay. She was placed on Ativan to prevent any alcohol withdrawal symptoms. She tolerated both medications well without any reported side effects. The patient was seen by internal medicine for routine history and physical examination. The patient was seen by social work for psychosocial assessment and discharge planning. optical goods worker was unable to contact any local support as no numbers were available. The patient was agreeable to outpatient mental health follow-[facility] which is going to be arranged. For her alcohol use disorder she was not agreeable to participating in inpatient chemical dependency treatment. The patient demonstrated no agitated behavior she reported a progressive improvement of symptoms while here. She states that she has no suicidal ideation intent or plan. Mental status exam: The patient is alert she is dressed in hospital attire she is ambulating without the walker. Eye contact is appropriate speech is spontaneous fluent nonpressured. She is pleasant and cooperative upon approach. She readily engages in conversation. She reports that she is feeling better and she feels motivated to return home. She is endorsing no hopelessness thinking. She spontaneously states how she will arrange for transportation to get to [facility] appointments. She reports no homicidal ideation intent or plan. She is endorsing no auditory or visual hallucinations or any specific delusions. There is no observable evidence of psychosis. She does not present hypomanic or manic. She remains oriented to person place and date. She demonstrates no verbal or physical aggressiveness. Affect is euthymic today and congruent to reported mood. Impressions 1. Major depressive disorder recurrent severe without psychosis, alcohol use disorder 2. COPD, restless leg syndrome, peptic ulcer disease, osteoarthritis, history of hepatitis C 3. Limited social support, feelings of loneliness Plan: The patient will be discharged from the mental health unit today to return home. She will continue on Zoloft 75 mg daily. Social work will arrange [facility]. She is instructed to abstain from alcohol use. We discussed that continued use of alcohol will elevate her safety risk. She is instructed to return to the hospital with any acute safety concerns and she is agreeable. She will follow with her primary care physician as needed. The patient is able to appropriate participate in her own activities of daily living. She is endorsing no symptoms of psychosis, she is not manic, she is reporting no suicidal ideation intent or plan. There is no imminent safety risk she is appropriate for transition to outpatient care. Patient Condition at Discharge: Stable Plan - Discharge Summary New Discharge Prescriptions: New Multivitamins, Thera [Multivitamin (formulary)] 1 each PO DAILY@1200 tab Nicotine 21Mg/24Hr Patch [Habitrol] 1 patch TRANSDERM DAILY #12 patch Sertraline [Zoloft] 75 mg PO DAILY #45 tab Continue Omeprazole [PriLOSEC] 20 mg PO DAILY Gabapentin [Neurontin] 400 mg PO TID Albuterol Sulfate [Proair Hfa] 2 puff INHALATION RT-Q4H PRN PRN Reason: Shortness Of Breath Discharge Medication List Albuterol Sulfate [Proair Hfa] 2 puff INHALATION RT-Q4H PRN 05/06/14 [History] Gabapentin [Neurontin] 400 mg PO TID 05/06/14 [History] Omeprazole [PriLOSEC] 20 mg PO DAILY 05/06/14 [History] Multivitamins, Thera [Multivitamin (formulary)] 1 each PO DAILY@1200 tab [Rx] Nicotine 21Mg/24Hr Patch [Habitrol] 1 patch TRANSDERM DAILY #12 patch 05/13/17 [ Rx] Sertraline [Zoloft] 75 mg PO DAILY #45 tab 05/13/17 [Rx] Follow up Appointment(s)/Referral(s): [facility] [Outside] - 1 Week (Please walk in for walk-in intake at [facility] within 2 business days of hospital discharge. Hours: Fri, Fri, , Friday 1030-3 Tues-830-3) Bailey Mart MD [Primary Care Provider] - 1-2 days Patient Instructions/Handouts: Abuse of Alcohol (DC), Suicide Prevention for Adults (DC) Activity/Diet/Wound Care/Special Instructions: Activity and diet as tolerated. Avoid the use of street drugs and alcohol. Take all medications as prescribed. When you are in need of refills on your medications please contact your medical provider and/or outpatient psychiatrist to have this done. Please go to scheduled outpatient appointment for aftercare. If symptoms return or become worse call the crisis line at and/ or go to the nearest emergency room for an evaluation.
[2017-05-13] MEDS: ALBUTEROL INHALER 60 PUFF/8 GM INHALER INHALATION PRN (09:19)
== END 2017-05-13 10:13 | disposition home or self-care (01) | DRG 885 ==
LOC: EC 06:32 → 3MHU 16:43
PROVIDERS: ADMIT Psychiatry & Neurology Psychiatry; ATTEND Psychiatry & Neurology Psychiatry
DX: F33.2 Major depressive disorder, recurrent severe without psychotic features (principal); M62.82 Rhabdomyolysis; J44.9 Chronic obstructive pulmonary disease, unspecified; B17.9 Acute viral hepatitis, unspecified; G40.909 Epilepsy, unspecified, not intractable, without status epilepticus; G25.81 Restless legs syndrome; Z87.11 Personal history of peptic ulcer disease; M06.9 Rheumatoid arthritis, unspecified; F17.200 Nicotine dependence, unspecified, uncomplicated; M16.0 Bilateral primary osteoarthritis of hip; M17.0 Bilateral primary osteoarthritis of knee; M19.042 Primary osteoarthritis, left hand; M19.041 Primary osteoarthritis, right hand; M19.012 Primary osteoarthritis, left shoulder; M19.011 Primary osteoarthritis, right shoulder; M81.0 Age-related osteoporosis without current pathological fracture; Z79.899 Other long term (current) drug therapy; Z91.5 Personal history of self-harm; F10.229 Alcohol dependence with intoxication, unspecified; Y90.3 Blood alcohol level of 60-79 mg/100 ml; T39.1X2A Poisoning by 4-Aminophenol derivatives, intentional self-harm, initial encounter; T51.0X2A Toxic effect of ethanol, intentional self-harm, initial encounter; Z87.01 Personal history of pneumonia (recurrent); Z60.2 Problems related to living alone; Z86.718 Personal history of other venous thrombosis and embolism; Z62.810 Personal history of physical and sexual abuse in childhood; Z88.0 Allergy status to penicillin; Z71.6 Tobacco abuse counseling
CPT/HCPCS: 36415; 70450; 71010; 72125; 76705; 80053; 80306; 80320; 81001; 82550; 82553; 83520; 84443; 84484; 85025; 85610; 85730; 93005; 94640; 96361; 96372; 96374; 96375; 99285

== ENCOUNTER → 2017-06-16 | Outpatient (CLI) | payer MEDICARE, OTHER ==
[2017-06-16 10:16] LABS: CH 31.4; CHCM 32.2; HCT 39.7 % (34.0-46.0); HDW 2.36; HGB 12.9 gm/dL (11.4-16.0); MCH 31.7 pg (25.0-35.0); MCHC 32.5 g/dL (31.0-37.0); MCV 97.7 fL (80.0-100.0); Mean Platelet Volume 7.6; RBC 4.06 m/uL (3.80-5.40); RDW 12.4 % (11.5-15.5); WBC 5.4 k/uL (3.8-10.6)
[2017-06-16 10:41] LABS: Bilirubin, Delta 0.3 mg/dL (0.0-0.2); Total Bilirubin 0.3 mg/dL (0.2-1.3); Total Protein 7.7 g/dL (6.3-8.2)
[2017-06-17 15:32] LABS: Hepatits C Virus RNA, Quant <12 IU/mL (<12); LOG HCV IU/mL <1.08 (<1.08)
== END | disposition home or self-care (01) ==
LOC: LABWHC1 09:38
PROVIDERS: ATTEND Physician Assistant
DX: B18.2 Chronic viral hepatitis C (principal)
CPT/HCPCS: 36415; 80076; 82105; 85027; 87522

== ENCOUNTER 2018-02-12 10:41 | Day surgery (SDC) | payer MEDICARE, OTHER ==
[2018-02-10 10:15] VITALS: BMI 18.4
[~2018-02-12 10:41] MED LIST: LACTATED RINGERS 1,000 ML IV SCH
[2018-02-12 11:08] VITALS: RESP 18; TEMP 97.8
[2018-02-12] MEDS ORDERED: LIDOCAINE 1% 20 ML VIAL (10MG/ML) FOR IV START INTRADERMA ONE (11:19)
[2018-02-12] MEDS ORDERED: PROPOFOL 10 MG/ML 20 ML VIAL IV ONE (11:46)
--- NOTE | 2018-02-12 12:27 | P.PCN ---
Date of Procedure: 02/12/18 Procedure(s) Performed: BRIEF HISTORY: Patient is a 72-year-old pleasant white female, scheduled for an elective colonoscopy as a part of screening for colorectal neoplasia. She has family history of colon polyps and her grandmother was diagnosed with colon cancer. Last colonoscopy was 9 years ago. PROCEDURE PERFORMED: Colonoscopy with snare polypectomy, biopsy and tattooing with Mile ink. PREOPERATIVE DIAGNOSIS: Screening for colon cancer and family history of colon cancer.. IV sedation per Anesthesia. PROCEDURE: After informed consent was obtained, the patient, was brought into the endoscopy unit. IV sedation was administered by Anesthesia under continuous monitoring. Digital rectal examination was normal. Initially the Olympus CF- 160 flexible video colonoscope was then inserted in the rectum, gradually advanced into the cecum without any difficulty. Careful examination was performed as the scope was gradually being withdrawn. Ileocecal valve and the appendiceal orifice were visualized and appeared normal. Prep was fair. In the base of the cecum revealed 2 polyps both of which were broad-based one measuring 3 cm and another one measuring 2 cm removed by snare polypectomy. In the ascending colon there were 2 polyps measuring 2 cm and 1 cm once again both of which were broad-based removed by piecemeal snare polypectomy. The, transverse colon, descending colon, appeared normal. In the proximal sigmoid colon at the 40 cm from the anal verge there was an ulcerated lesion identified measuring about 2 cm in size and multiple biopsies were done from this area. Also tattooing was performed using Mile ink. Also there was a 1 cm polyp adjacent to this area that was removed by snare polypectomy. The rectum appeared normal. Retroflexion was performed in the rectum and no lesions were seen. The patient tolerated the procedure well. IMPRESSION: 2 cm and 2 cm broad-based cecal polyps status post piecemeal snare polypectomy 1 cm and 2 cm broad-based ascending colon polyps status post piecemeal snare polypectomy 2 cm ulcerated lesion in the proximal sigmoid colon at 40 cm from the anal verge status post biopsies followed by tattooing with Mile ink 1 cm sigmoid colon polyp status post polypectomy Scattered sigmoid diverticula cyst RECOMMENDATIONS: Findings of this examination were discussed with the patient as well as her family. She was advised to follow with the biopsy results and she'll be seen in the office in a week..
[2018-02-12 12:50] VITALS: BP 173/87; PULSE 85
== END 2018-02-12 13:13 | disposition home or self-care (01) ==
LOC: ORWHC2ENDO 10:41
PROVIDERS: ATTEND Internal Medicine Gastroenterology
DX: Z12.11 Encounter for screening for malignant neoplasm of colon (principal); C18.7 Malignant neoplasm of sigmoid colon; D12.2 Benign neoplasm of ascending colon; D12.0 Benign neoplasm of cecum; D12.5 Benign neoplasm of sigmoid colon; K63.5 Polyp of colon; K57.30 Diverticulosis of large intestine without perforation or abscess without bleeding; K63.89 Other specified diseases of intestine; Z80.0 Family history of malignant neoplasm of digestive organs; Z83.71 Family history of colonic polyps; J44.9 Chronic obstructive pulmonary disease, unspecified; R56.9 Unspecified convulsions; F17.200 Nicotine dependence, unspecified, uncomplicated; Z79.51 Long term (current) use of inhaled steroids; Z79.899 Other long term (current) drug therapy; Z88.0 Allergy status to penicillin
CPT/HCPCS: 88305; 45380; 45385; 45381; J2704; 44404

== ENCOUNTER → 2018-02-23 | Outpatient (CLI) | payer MEDICARE, OTHER ==
[2018-02-23 17:22] LABS: Blood Urea Nitrogen 8 mg/dL (7-17)
--- NOTE | 2018-02-23 22:33 | CT ---
EXAMINATION TYPE: CT abdomen pelvis w con DATE OF EXAM: 02/23/2018 HISTORY: Malignant neoplasm of colon recently diagnosed. Had stomach pain for [address] DLP: 370.8mGycm Automated Exposure Control for Dose Reduction was Utilized. CONTRAST: CT scan of the abdomen and pelvis is performed with oral and with IV Contrast, patient injected with 100 mL of Isovue M300. COMPARISON: None FINDINGS: LUNG BASES: Some anterior linear scarring and/or atelectasis in both bases is present LIVER/GB: No significant abnormality is appreciated. PANCREAS: No significant abnormality is seen. SPLEEN: No significant abnormality is seen. ADRENALS: No significant abnormality is seen. KIDNEYS: There is symmetric cortical medullary uptake and excretion from both kidneys. There is howev er 6 mm calculus in the proximal to mid left ureter axial image 42. This is causing moderate left-kassi ed pyelocaliectasis and proximal hydroureter. No intraluminal calculi in bladder are seen. No right-s ided renal calculi or hydronephrosis. BOWEL: There is no suspicious small or large bowel dilatation. Oral contrast reaches level of splenic flexure. There is mild prominence of fecal material in the right and transverse colon. Evaluation of distal bowel slightly suboptimal due to lack of enteric contrast. Diverticula are seen in the sigmoi d colon. Slight redundancy is present. No acute diverticulitis is identified. No obvious constricting mass is identified on CT. UTERUS/ADNEXA: Anteverted uterus is present. A few scattered pelvic phleboliths are seen LYMPH NODES: No greater than 1cm abdominal or pelvic lymph nodes are appreciated. OSSEOUS STRUCTURES: Underlying scoliosis is seen. There is multilevel spurring and disc space narrowi ng with latter most prominent at L3-L4 through the L5-S1 levels. Moderate to advanced joint space los s in both hips is noted. OTHER: There is moderate to severe atherosclerotic change of aorta extending into branch vessels IMPRESSION: 1. No suspicious mass or adenopathy to suggest metastatic disease. Newly diagnosed primary colonic ne oplasm not well-visualized on CT. 2. Note is made of 6 mm proximal to mid left ureter calculus causing moderate left-sided hydronephros is but not delayed excretion.
== END | disposition home or self-care (01) ==
LOC: RADCTMAIN 16:34
PROVIDERS: ATTEND Internal Medicine Gastroenterology
DX: C18.9 Malignant neoplasm of colon, unspecified (principal); N13.2 Hydronephrosis with renal and ureteral calculous obstruction
CPT/HCPCS: 82565; 84520; 74177; 36415; Q9967

== ENCOUNTER → 2018-03-17 | Outpatient (CLI) | payer MEDICARE, OTHER ==
[2018-03-17 12:35] LABS: HCT 38.5 % (34.0-46.0); MCH 32.9 pg (25.0-35.0); MCHC 33.7 g/dL (31.0-37.0); MCV 97.9 fL (80.0-100.0); Mean Platelet Volume 6.8; Platelet Count 217 k/uL (150-450); RBC 3.93 m/uL (3.80-5.40); RDW 12.7 % (11.5-15.5); WBC 5.4 k/uL (3.8-10.6)
[2018-03-17 12:43] LABS: Potassium 4.9 mmol/L (3.5-5.1)
== END | disposition home or self-care (01) ==
LOC: LABPAT 11:55
PROVIDERS: ATTEND Surgery
DX: Z01.812 Encounter for preprocedural laboratory examination (principal); C18.7 Malignant neoplasm of sigmoid colon
CPT/HCPCS: 36415; 80051; 85027

== ENCOUNTER 2018-03-23 09:17 | Inpatient (IN) | payer MEDICARE, OTHER ==
[2018-03-16 12:49] VITALS: BMI 18.4
[~2018-03-23 09:17] MED LIST changes: +ALVIMOPAN 12 MG CAPSULE PO ONE; +CLINDAMYCIN 900 MG in DEXTROSE 5% IN WATER 50 ML IVPB ONE; +DEXAMETHASONE SOD PHOSPHATE 10 MG/ML 1 ML VIAL IV ONE; +GENTAMICIN 280 MG in SODIUM CHLORIDE 0.9% 100 ML IVPB ONE; +HEPARIN SODIUM,PORCINE 5,000 UNIT/ML 1 ML VIAL SQ ONE; -LACTATED RINGERS 1,000 ML IV SCH; +MIDAZOLAM 2 MG/2 ML VIAL IV PRN; +ONDANSETRON 4 MG/2 ML VIAL IVP ONE
[2018-03-23] MEDS ORDERED: LIDOCAINE 1% 20 ML VIAL (10MG/ML) FOR IV START INTRADERMA ONE ×2 (10:23→10:25)
[2018-03-23] MEDS: LACTATED RINGERS 1,000 ML IV SCH (10:25)
[2018-03-23] MEDS ORDERED: MIDAZOLAM 2 MG/2 ML VIAL ONE (11:02)
[2018-03-23] MEDS ORDERED: SUCCINYLCHOLINE CHLORIDE 100 MG/5 ML SYR IV ONE (11:02)
[2018-03-23] MEDS ORDERED: NEOSTIGMINE 1 MG/ML 10 ML VIAL ONE (11:02)
[2018-03-23] MEDS ORDERED: PROPOFOL 10 MG/ML 20 ML VIAL IV ONE (11:02)
[2018-03-23] MEDS ORDERED: LIDOCAINE 1% INJ 10MG/ML (20 ML MDV) ONE (11:02)
[2018-03-23] MEDS ORDERED: ROCURONIUM BROMIDE 10 MG/ML 10 ML VIAL IV ONE (11:02)
[2018-03-23] MEDS ORDERED: INDOCYANINE GREEN 25 MG VIAL IV ONE (11:02)
[2018-03-23] MEDS ORDERED: GLYCOPYRROLATE 0.2 MG/ML 2 ML VIAL ONE (11:02)
[2018-03-23] MEDS ORDERED: fentaNYL (PF) 50 MCG/ML 2 ML AMP ONE (11:02)
[2018-03-23] MEDS ORDERED: BUPIVACAIN-EPI 0.5%-1:200,000 30 ML VIAL SQ ONE (11:48)
[2018-03-23] MEDS ORDERED: LACTATED RINGERS 1,000 ML IV ONE (12:55)
[2018-03-23] MEDS: fentaNYL (PF) 50 MCG/ML 2 ML AMP IV PRN ×2 (15:28→15:44)
[2018-03-23] MEDS ORDERED: ONDANSETRON 4 MG/2 ML VIAL IVP PRN (15:29)
[2018-03-23] MEDS ORDERED: METOCLOPRAMIDE 5 MG/ML 2 ML VIAL IVP PRN (15:29)
--- NOTE | 2018-03-23 15:39 | P.OP ---
Date of Procedure: 03/23/18 Procedure(s) Performed: PREOPERATIVE DIAGNOSIS: Left-sided colon cancer POSTOPERATIVE DIAGNOSIS: Same PROCEDURE: Laparoscopic partial colectomy with mobilization splenic flexure and intracorporeal anastomosis SURGEON: Tavon EBL: 50ML ANESTHESIA: General COMPLICATIONS: None OPERATIVE PROCEDURE: The patient was placed in the operating table in the supine position. She was placed under general anesthesia that time. Patient was then placed in lithotomy. A Lebron catheter was placed. The arms were tucked. The abdomen was prepped and draped in the usual sterile fashion. Entrance into the abdomen occurred through a right mid abdomen 5 mm trocar site. The optical trocar was utilized and once the peritoneum was penetrated full insufflation took place up to 15 mmHg. The abdomen was inspected. The area of tattooing was identified at the proximal aspect of the descending colon. At that 0.3 additional trochars were placed under direct visualization a 12 mm right upper quadrant an 8 mm right upper quadrant and a 12 mm right lower quadrant trocar. The initial 5 was switched to an 8 mm trocar. The robot was then docked appropriately and the area of interest was targeted. Mobilization of the splenic flexure ensued at that point. The white line of Toldt along the descending colon was incised and the bowel was widely dissected medially. The adhesions around the splenic flexure were divided as well using the vessel sealer. Once I had adequate mobilization I divided the mid transverse colon using a linear blue load stapler 2. The distal descending colon was divided in a similar fashion. The mesentery was divided using both the vessel sealer and the prominent left colic was divided using the white load stapler. The specimen was placed in the left upper quadrant temporarily. The mesentery was inspected and no bleeding was seen. A qbyh-pe-lram antiperistaltic anastomosis then took place. Using a 3-0 silk suture the colon was tacked to itself along the tenia coli. A small colotomy was made in both the distal and proximal bowel. The 45 blue load stapler was fired twice through the colotomy sites creating a [id number] anastomosis. The defect was then closed transversely using a running 20 the lock suture. Once the initial layer was closed the seromuscular layer was reapproximated in a running Lambert fashion. The previously placed silk sutures were left in placed as crotch stitches and apical sutures. The area was irrigated with saline. No bleeding or contamination was identified. The pneumoperitoneum was evacuated. The right lower quadrant 12 mm trocar site was lengthened at the skin and subcutaneous level. The fascia was divided vertically. An Jose Ramon wound retractor was utilized. The specimen was removed without difficulty. I then closed the fascia in 2 layers using a running 3-0 Vicryl deep suture on the peritoneum and deep muscular layer and a #1 Vicryl on the anterior fascial layer. The skin incision sites were closed using 4-0 Monocryl sutures and Dermabond. At the end of the procedure the sponge needle and instrument counts were correct. DISPOSITION: Stable to recovery room
[2018-03-23] MEDS ORDERED: ALBUTEROL NEBULIZED 2.5 MG/3 ML INHALATION PRN (15:44)
[2018-03-23] MEDS ORDERED: MEPERIDINE 50 MG/ML SYRINGE IVP ONE (15:54)
[2018-03-23] MEDS ORDERED: IPRATROPIUM-ALBUTEROL 3 ML NEB INHALATION SCH (16:00)
[2018-03-23] MEDS: GABAPENTIN 400 MG CAP PO SCH ×2 (17:23→21:46)
[2018-03-23] MEDS: D5-0.45% NACL WITH KCL 20MEQ/L 1,000 ML IV SCH (17:24)
[2018-03-23] MEDS: HEPARIN SODIUM,PORCINE 5,000 UNIT/ML 1 ML VIAL SQ SCH (17:24)
[2018-03-23] MEDS: HYDROmorphone 1 MG/ML 1 ML SYRINGE IVP PRN (17:48)
[2018-03-23] MEDS: IPRATROPIUM-ALBUTEROL 3 ML NEB INHALATION SCH (19:32)
[2018-03-23] MEDS: FAMOTIDINE 20 MG/2 ML VIAL IV SCH (21:46)
[2018-03-24] MEDS: D5-0.45% NACL WITH KCL 20MEQ/L 1,000 ML IV SCH ×2 (00:08→10:31)
[2018-03-24] MEDS: HEPARIN SODIUM,PORCINE 5,000 UNIT/ML 1 ML VIAL SQ SCH ×4 (00:08→23:26)
[2018-03-24] MEDS: HYDROmorphone 1 MG/ML 1 ML SYRINGE IVP PRN ×4 (00:30→15:17)
[2018-03-24] MEDS: LACTATED RINGERS 1,000 ML IV SCH (04:20)
[2018-03-24] MEDS: IPRATROPIUM-ALBUTEROL 3 ML NEB INHALATION SCH ×4 (07:08→20:07)
[2018-03-24 07:11] LABS: Basophils % (A) 0 %; Eosinophils % (A) 0 %; HGB 11.3 gm/dL (11.4-16.0); Lymphocytes # (A) 0.8 k/uL (1.0-4.8); Lymphocytes % (A) 10 %; MCH 32.9 pg (25.0-35.0); MCHC 33.2 g/dL (31.0-37.0); MCV 99.1 fL (80.0-100.0); Mean Platelet Volume 7.5; Monocytes # (A) 0.4 k/uL (0-1.0); Monocytes % (A) 6 %; Neutrophils # (A) 6.3 k/uL (1.3-7.7); Neutrophils % (A) 83 %; Platelet Count 205 k/uL (150-450); RBC 3.43 m/uL (3.80-5.40); RDW 12.4 % (11.5-15.5); WBC 7.6 k/uL (3.8-10.6)
[2018-03-24 07:33] LABS: Anion Gap 6 mmol/L; Blood Urea Nitrogen 6 mg/dL (7-17); Carbon Dioxide 24 mmol/L (22-30); Chloride 108 mmol/L (98-107); Glucose 125 mg/dL (74-99); Potassium 5.7 mmol/L (3.5-5.1); Sodium 138 mmol/L (137-145)
[2018-03-24] MEDS: FAMOTIDINE 20 MG/2 ML VIAL IV SCH ×2 (08:36→20:31)
[2018-03-24] MEDS: ALVIMOPAN 12 MG CAPSULE PO SCH ×2 (08:36→20:32)
[2018-03-24] MEDS: GABAPENTIN 400 MG CAP PO SCH ×3 (08:36→20:31)
[2018-03-24] MEDS: NICOTINE 21MG/24HR PATCH TRANSDERM SCH (08:37)
--- NOTE | 2018-03-24 12:03 | P.PN ---
<Rianna Benson - Last Filed: 03/24/18 11:58> Subjective Progress Note Date: 03/24/18 72-year-old seen and examined at the bedside awake alert. States pain medication effective for pain control. Indwelling Lebron catheter in place dressings dry to surgical site tolerating a clear liquid diet states passing gas no stool no nausea no vomiting Laparoscopic partial colectomy with mobilization splenic flexure and intracorporeal anastomosis done for left-sided colon cancer 23 of March Objective - Vital Signs Vital signs: Vital Signs Temp 98.4 F 03/24/18 07:00 Pulse 86 03/24/18 07:22 Resp 16 03/24/18 07:09 BP 119/69 03/24/18 07:00 Pulse Ox 95 03/24/18 07:09 Intake & Output 03/23/18 03/24/18 03/24/18 18:59 06:59 18:59 Intake Total 2563 665 400 Output Total 344 106 4038 Balance 2403 -135 -1000 Weight 56.699 kg Intake: IV 2563 Intake, IV Titration 125 Amount D5-0.45% NaCl with KCl 125 20Meq/l 1,000 ml @ 125 mls/hr IV .Q8H MARIPOSA Rx#: [id number] Oral 540 400 Output: Urine 800 411 7690 Uretheral (Lebron) 1400 Estimated Blood Loss 10 Other: Voiding Method Indwelling Catheter Indwelling Catheter # Bowel Movements 0 # Emeses 0 - Exam Physical exam 72-year-old female sitting up in bed taking a clear liquid diet Lungs adequate air movement bilaterally Heart S1-S2 audible regular Abdomen surgical dressing site dry few hypoactive bowel tones indwelling Lebron catheter in place reports no nausea vomiting Extremities Venodyne's on bilateral lower extremities no edema - Labs CBC & Chem 7: 03/24/18 06:27 03/24/18 06:27 Labs: Abnormal Lab Results - Last 24 Hours (Table) 03/24/18 03/24/18 Range/Units 06:27 06:27 RBC 3.43 L (3.80-5.40) m/uL Hgb 11.3 L (11.4-16.0) gm/dL Lymphocytes # 0.8 L (1.0-4.8) k/uL Potassium 5.7 H (3.5-5.1) mmol/L Chloride 108 H (98-107) mmol/L BUN 6 L (7-17) mg/dL Glucose 125 H (74-99) mg/dL Assessment and Plan Assessment: Impression Left-sided colon cancer Laparoscopic partial colectomy with mobilization splenic flexure and intracorporeal anastomosis done on March 23 Hyperkalemia Plan Continue postop surgical care Clear liquid diet Increase activity Remove indwelling Lebron catheter Increase use of incentive spirometer Pain control DVT and GI prophylaxis The above impression and plan of care have been discussed and directed by signing physician. Rianna Benson nurse practitioner acting as scribe for signing physician. <Van Montes De Oca - Last Filed: 03/24/18 22:58> Objective - Vital Signs Vital signs: Vital Signs Temp 98.5 F 03/24/18 19:08 Pulse 86 03/24/18 20:20 Resp 18 03/24/18 19:08 BP 151/80 03/24/18 19:08 Pulse Ox 95 03/24/18 15:00 Intake & Output 03/24/18 03/24/18 03/25/18 06:59 18:59 06:59 Intake Total 665 1100 Output Total 800 1400 Balance -135 -300 Weight 56.699 kg Intake: Intake, IV Titration 125 Amount D5-0.45% NaCl with KCl 125 20Meq/l 1,000 ml @ 125 mls/hr IV .Q8H [facility]IPOSA Rx#: [id number] Oral 540 1100 Output: Urine 800 1400 Uretheral (Lebron) 1400 Other: Voiding Method Indwelling Catheter Toilet # Bowel Movements 0 1 # Emeses 0 - Labs CBC & Chem 7: 03/24/18 06:27 03/24/18 06:27 Labs: Abnormal Lab Results - Last 24 Hours (Table) 03/24/18 03/24/18 Range/Units 06:27 06:27 RBC 3.43 L (3.80-5.40) m/uL Hgb 11.3 L (11.4-16.0) gm/dL Lymphocytes # 0.8 L (1.0-4.8) k/uL Potassium 5.7 H (3.5-5.1) mmol/L Chloride 108 H (98-107) mmol/L BUN 6 L (7-17) mg/dL Glucose 125 H (74-99) mg/dL Assessment and Plan Assessment: Patient doing well this evening. Pain is mild. She does complain of bloating. She has had multiple loose stools. She is hungry. Will increase diet. Continue ambulation. Possible discharge tomorrow.
[2018-03-24] MEDS: VIT A,C & E-LUTEIN-MINERALS 1 EACH TAB PO SCH (12:05)
[2018-03-24] MEDS: SODIUM CHLORIDE 0.9% 1,000 ML IV SCH ×2 (12:05→23:34)
--- NOTE | 2018-03-24 12:13 | P.CONS ---
History of Present Illness - Reason for Consult Consult date: 03/24/18 Medical management Requesting physician: Van Montes De Oca - Chief Complaint sigmoid colon cancer - History of Present Illness This is a 72-year-old female patient of Dr. Mart. Patient presented for an elective laparoscopic partial colectomy mobilization splenic flexure and intraoperative corporaeal anastomosis. Patient has a history of left-sided colon cancer. Patient has a known past medical history of asthma, cancer, COPD , deep vein thrombosis, I disorder, lucencies, pneumonia, rheumatoid arthritis, nicotine dependence and history of recreational drug use history as teen. Today patient is currently sitting in bed. Patient states she is feeling good and is eager to get home likely tomorrow. Patient has not had a bowel movement yet. Patient has been up walking. Patient is currently on full liquid diet per surgical team. Patient denies chest pain or shortness breath. Denies nausea vomiting or diarrhea. Denies any urinary burning or frequency. Patient does have an elevated potassium of 5.7. D5 half-normal saline with 20 KCl has been discontinued. Review of Systems Please refer to HPI otherwise unremarkable Past Medical History Past Medical History: Asthma, Cancer, COPD, Deep Vein Thrombosis (DVT), Eye Disorder, Liver Disease, Pneumonia, Rheumatoid Arthritis (RA), Seizure Disorder Additional Past Medical History / Comment(s): HX PLEURISY CHILD; HAS "COMPROMISED LUNGS," BRONCHITIS AND PNEUMONIA NUMEROUS TIMES. HX R PNEUMOTHORAX 30 YRS AGO. NUMEROUS FX, TEETH KNOCKED OUT. LIVER ENZYMES HAD BEEN ELEVATED AND COMPLETED A 3 MONTH MEDICATION TX; BECAME ANEMIC DURING THIS TX- HGB IS NOW NL. HX RLS. HX OF SEIZURES, BELIEVES IS DUE TO RECREATIONAL DRUG USE A TEEN, LAST SEIZURE AT AGE 22. HX Hepatitis C at 16 yrs of age. Hx Thrombophlebitis X2. Current RT eye Glaucoma. CA COLON, CURRENT. History of Any Multi-Drug Resistant Organisms: None Reported Past Surgical History: Tonsillectomy Additional Past Surgical History / Comment(s): Colonoscopy. KIDNEY STONE REMOVAL. Past Anesthesia/Blood Transfusion Reactions: No Reported Reaction Past Psychological History: No Psychological Hx Reported Additional Psychological History / Comment(s): VERY AGITATED & SHORT-TEMPERED, HOSTILE AT TIMES. Smoking Status: Current every day smoker Past Alcohol Use History: Occasional Additional Past Alcohol Use History / Comment(s): Has been smoking since 10 yrs old, trying to quit, down to 1-5 cigarettes some days. Past Drug Use History: Marijuana Additional Drug Use History / Comment(s): LAST USED MARIJUANA A TEENAGER. - Past Family History Father Family Medical History: No Reported History Mother Family Medical History: Cancer, Coronary Artery Disease (CAD), Diabetes Mellitus Additional Family Medical History / Comment(s): Colon cancer Daughter(s) Family Medical History: Cancer Additional Family Medical History / Comment(s): Hodgkins Medications and Allergies Home Medications Medication Instructions Recorded Confirmed Type Gabapentin [Neurontin] 400 mg PO TID 05/06/14 03/23/18 History Omeprazole [PriLOSEC] 20 mg PO DAILY 05/06/14 03/23/18 History Nicotine 21Mg/24Hr Patch [Habitrol] 1 patch TRANSDERM DAILY #12 patch 05/13/17 03/23/18 Rx Acetaminophen [Tylenol Arthritis] 650 mg PO BID 02/10/18 03/23/18 History Acetaminophen/Diphenhydramine 2 tab PO HS 02/10/18 03/23/18 History [Tylenol PM Extra Strength] Albuterol Inhaler [Ventolin Hfa 1 - 2 puff INHALATION RT-Q6H PRN 02/10/18 History Inhaler] Ipratropium/Albuterol Sulfate 1 puff INHALATION RT-QID 02/10/18 03/23/18 History [Combivent Respimat Inhaler] Vit C/E/Zn/Coppr/Lutein/Zeaxan 1 cap PO DAILY 02/10/18 03/23/18 History [Preservision Areds 2 Softgel] Ergocalciferol (Vitamin D2) 50,000 unit PO FR 03/23/18 03/23/18 History [Vitamin D2] Allergies Allergy/AdvReac Type Severity Reaction Status Date / Time Penicillins Allergy Severe Anaphylaxis Verified 03/23/18 14:05 Physical Exam Vitals: Vital Signs Temp Pulse Pulse Pulse Resp BP Pulse Ox 03/24/18 07:22 86 03/24/18 07:09 83 16 95 03/24/18 07:00 98.4 F 82 14 119/69 100 03/24/18 00:18 98.3 F 86 16 113/70 96 03/24/18 00:09 16 03/23/18 19:41 95 03/23/18 19:33 84 03/23/18 19:30 98.4 F 89 16 104/59 96 03/23/18 17:45 94 112/69 100 03/23/18 17:30 89 127/67 99 03/23/18 17:15 85 130/75 99 03/23/18 17:00 92 119/72 99 03/23/18 16:45 88 119/69 99 03/23/18 16:30 98.1 F 90 114/68 97 03/23/18 16:10 90 16 135/65 97 03/23/18 15:55 87 18 141/72 97 03/23/18 15:40 86 18 158/78 99 03/23/18 15:28 80 16 153/78 100 03/23/18 15:13 99.7 F H 84 16 138/83 100 Intake and Output 03/23/18 03/24/18 03/24/18 22:59 06:59 14:59 Intake Total 865 400 Output Total 800 1400 Balance 865 -800 -1000 Intake: IV 200 Intake, IV Titration 125 Amount D5-0.45% NaCl with KCl 125 20Meq/l 1,000 ml @ 125 mls/hr IV .Q8H MARIPOSA Rx#: [id number] Oral 540 400 Output: Urine 800 1400 Uretheral (Lebron) 1400 Other: Voiding Method Indwelling Catheter Indwelling Catheter # Bowel Movements 0 # Emeses 0 Weight 56.699 kg Head normocephalic Neck supple Lungs clear to auscultation bilaterally no wheezing or crackles Heart regular rate and rhythm S1-S2, no rub or gallop Abdomen is soft nontender nondistended. No bowel sounds present Extremities no edema Neuro alert and orientated to 3 Results CBC & Chem 7: 03/24/18 06:27 03/24/18 06:27 Labs: Abnormal Lab Results - Last 24 Hours (Table) 03/24/18 03/24/18 Range/Units 06:27 06:27 RBC 3.43 L (3.80-5.40) m/uL Hgb 11.3 L (11.4-16.0) gm/dL Lymphocytes # 0.8 L (1.0-4.8) k/uL Potassium 5.7 H (3.5-5.1) mmol/L Chloride 108 H (98-107) mmol/L BUN 6 L (7-17) mg/dL Glucose 125 H (74-99) mg/dL Assessment and Plan Assessment: 1. Status post endoscopic partial colectomy with mobilization splenic flexure and intracorporeal anastomosis done for left-sided colon cancer. Patient is postop day 1. Patient currently on clear liquid diet 2. Hyperkalemia. Potassium 5.7. D5 half-normal saline with 20 of KCl discontinued 3. History of asthma 4. History of rheumatoid arthritis 5. nicotine dependence DVT prophylaxis heparin. GI prophylaxis Pepcid Thank you for this consultation we'll continue to follow patient closely throughout stay. Time with Patient: Greater than 30 (Greater than 60% of the total time spent in counseling and coordination of care. I performed an examination of the patient and discussed their management with the Nurse Practitioner. I have reviewed the Nurse Practitioner's notes and agree with the documented findings and plan of care)
[2018-03-24] MEDS: KETOROLAC 30 MG/ML 1 ML VIAL IVP SCH (23:26)
[2018-03-25] MEDS: KETOROLAC 30 MG/ML 1 ML VIAL IVP SCH ×3 (05:22→18:18)
[2018-03-25] MEDS: LACTATED RINGERS 1,000 ML IV SCH (05:43)
[2018-03-25 07:48] LABS: Basophils % (A) 0 %; Eosinophils # (A) 0.1 k/uL (0-0.7); Eosinophils % (A) 1 %; HCT 34.8 % (34.0-46.0); HGB 11.4 gm/dL (11.4-16.0); Lymphocytes # (A) 1.5 k/uL (1.0-4.8); Lymphocytes % (A) 25 %; MCHC 32.7 g/dL (31.0-37.0); MCV 100.9 fL (80.0-100.0); Mean Platelet Volume 6.6; Monocytes # (A) 0.3 k/uL (0-1.0); Monocytes % (A) 6 %; Neutrophils % (A) 67 %; Platelet Count 204 k/uL (150-450); RBC 3.45 m/uL (3.80-5.40); RDW 12.7 % (11.5-15.5)
[2018-03-25 08:07] LABS: Anion Gap 4 mmol/L; Blood Urea Nitrogen 4 mg/dL (7-17); Calcium 8.9 mg/dL (8.4-10.2); Carbon Dioxide 28 mmol/L (22-30); Chloride 110 mmol/L (98-107); Glucose 78 mg/dL (74-99); Potassium 4.2 mmol/L (3.5-5.1); Sodium 142 mmol/L (137-145)
[2018-03-25] MEDS: NICOTINE 21MG/24HR PATCH TRANSDERM SCH (08:45)
[2018-03-25] MEDS: GABAPENTIN 400 MG CAP PO SCH ×2 (08:45→18:17)
[2018-03-25] MEDS: FAMOTIDINE 20 MG/2 ML VIAL IV SCH (08:45)
[2018-03-25] MEDS: ALVIMOPAN 12 MG CAPSULE PO SCH (08:45)
[2018-03-25] MEDS: IPRATROPIUM-ALBUTEROL 3 ML NEB INHALATION SCH ×4 (09:08→20:19)
[2018-03-25] MEDS: HEPARIN SODIUM,PORCINE 5,000 UNIT/ML 1 ML VIAL SQ SCH ×2 (09:21→18:18)
--- NOTE | 2018-03-25 11:56 | P.PN ---
Subjective Progress Note Date: 03/25/18 This is a 72-year-old female patient of Dr. Mart. Patient presented for an elective laparoscopic partial colectomy mobilization splenic flexure and intraoperative corporaeal anastomosis. Patient has a history of left-sided colon cancer. Patient has a known past medical history of asthma, cancer, COPD , deep vein thrombosis, I disorder, lucencies, pneumonia, rheumatoid arthritis, nicotine dependence and history of recreational drug use history as teen. Today patient is currently sitting in bed. Patient states she is feeling good and is eager to get home likely tomorrow. Patient has not had a bowel movement yet. Patient has been up walking. Patient is currently on full liquid diet per surgical team. Patient denies chest pain or shortness breath. Denies nausea vomiting or diarrhea. Denies any urinary burning or frequency. Patient does have an elevated potassium of 5.7. D5 half-normal saline with 20 KCl has been discontinued. On 03/25/2018 patient is currently resting comfortably in bed. Patient states that she had a bowel movement. Patient denies nausea or vomiting. Patient denies chest pain or shortness of breath. Denies any urinary burning or frequency. Objective - Vital Signs Vital signs: Vital Signs Temp 98 F 03/25/18 07:48 Pulse 92 03/25/18 09:20 Resp 18 03/25/18 07:48 BP 169/71 03/25/18 07:48 Pulse Ox 97 03/25/18 07:48 Intake & Output 03/24/18 03/25/18 03/25/18 18:59 06:59 18:59 Intake Total 1100 500 Output Total 1400 Balance -300 500 Weight 56.699 kg Intake: Oral 1100 500 Output: Urine 1400 Uretheral (Lebron) 1400 Other: Voiding Method Toilet Toilet # Bowel Movements 1 - Exam Head normocephalic Neck supple Lungs clear to auscultation bilaterally no wheezing or crackles Heart regular rate and rhythm S1-S2, no rub or gallop Abdomen is soft nontender nondistended positive bowel sounds no hepatosplenomegaly Extremities no edema Neuro alert and orientated to 3 - Labs CBC & Chem 7: 03/25/18 06:59 03/25/18 06:59 Labs: Abnormal Lab Results - Last 24 Hours (Table) 03/25/18 03/25/18 Range/Units 06:59 06:59 RBC 3.45 L (3.80-5.40) m/uL MCV 100.9 H (80.0-100.0) fL Chloride 110 H (98-107) mmol/L BUN 4 L (7-17) mg/dL Assessment and Plan Assessment: 1. Status post endoscopic partial colectomy with mobilization splenic flexure and intracorporeal anastomosis done for left-sided colon cancer. Patient is postop day 2. Patient currently on full liquid diet. Patient does state that she did have a bowel movement. 2. Hyperkalemia. Potassium 5.7. D5 half-normal saline with 20 of KCl discontinued. Repeat potassium 4.2 3. History of asthma 4. History of rheumatoid arthritis 5. nicotine dependence DVT prophylaxis heparin. GI prophylaxis Pepcid Thank you for this consultation we'll continue to follow patient closely throughout stay.
[2018-03-25] MEDS: VIT A,C & E-LUTEIN-MINERALS 1 EACH TAB PO SCH (12:01)
[2018-03-25] MEDS: SODIUM CHLORIDE 0.9% 1,000 ML IV SCH (12:02)
[2018-03-25] MEDS ORDERED: HYDROcodone/APAP 5-325MG 1 EACH TAB PO PRN (12:28)
--- NOTE | 2018-03-25 13:21 | P.PN ---
<Rianna Benson - Last Filed: 03/25/18 13:16> Subjective Progress Note Date: 03/25/18 72-year-old female sitting up in bed states pain medication effective for pain control had 1 moderate maroon bloody stool per rectum this morning hemoglobin 11.4 surgical dressing dry abdomen not distended tenderness appropriate Laparoscopic partial colectomy with mobilization splenic flexure and intracorporeal anastomosis done for left-sided colon cancer 23 of March Objective - Vital Signs Vital signs: Vital Signs Temp 98 F 03/25/18 07:48 Pulse 100 03/25/18 12:31 Resp 18 03/25/18 07:48 BP 169/71 03/25/18 07:48 Pulse Ox 97 03/25/18 07:48 Intake & Output 03/24/18 03/25/18 03/25/18 18:59 06:59 18:59 Intake Total 1100 500 Output Total 1400 Balance -300 500 Weight 56.699 kg Intake: Oral 1100 500 Output: Urine 1400 Uretheral (Lebron) 1400 Other: Voiding Method Toilet Toilet # Bowel Movements 1 - Exam Physical exam 72-year-old female sitting up in bed patient requesting prune juice this morning Lungs adequate air movement bilaterally Heart S1-S2 audible regular Abdomen surgical dressing site dry had one maroon colored stool per rectum this morning no reports of nausea vomiting states passing gas Extremities Venodyne's on bilateral lower extremities no edema - Labs CBC & Chem 7: 03/25/18 06:59 03/25/18 06:59 Labs: Abnormal Lab Results - Last 24 Hours (Table) 03/25/18 03/25/18 Range/Units 06:59 06:59 RBC 3.45 L (3.80-5.40) m/uL MCV 100.9 H (80.0-100.0) fL Chloride 110 H (98-107) mmol/L BUN 4 L (7-17) mg/dL Assessment and Plan Assessment: Impression Left-sided colon cancer Laparoscopic partial colectomy with mobilization splenic flexure and intracorporeal anastomosis done on March 23 Hyperkalemia corrected resolved Nicotine dependency Plan Continue postop surgical care Full liquid diet with prune juice Increase activit Increase use of incentive spirometer Pain control DVT and GI prophylaxis Anticipate discharge in 24 hours Follow up on path report The above impression and plan of care have been discussed and directed by signing physicianDaphney Benson nurse practitioner acting as scribe for signing physician. <Van Montes De Oca - Last Filed: 03/25/18 22:08> Objective - Vital Signs Vital signs: Vital Signs Temp 99.1 F 03/25/18 15:00 Pulse 96 03/25/18 16:21 Resp 12 03/25/18 15:00 BP 122/75 03/25/18 15:00 Pulse Ox 96 03/25/18 15:00 Intake & Output 03/25/18 03/25/18 03/26/18 06:59 18:59 06:59 Intake Total 1000 Balance 1000 Intake: Oral 1000 Other: Voiding Method Toilet - Labs CBC & Chem 7: 03/25/18 06:59 03/25/18 06:59 Labs: Abnormal Lab Results - Last 24 Hours (Table) 03/25/18 03/25/18 Range/Units 06:59 06:59 RBC 3.45 L (3.80-5.40) m/uL MCV 100.9 H (80.0-100.0) fL Chloride 110 H (98-107) mmol/L BUN 4 L (7-17) mg/dL Assessment and Plan Assessment: As above. Patient doing well. Tolerating diet. Had some bloody stools earlier in the morning but as the day progressed the stools became more brownish in color. Patient anxious to go home. We'll discharge home today with outpatient follow-up in one week.
[2018-03-25 15:11] VITALS: BP 122/75; RESP 12; TEMP 99.1
[2018-03-25 16:21] VITALS: PULSE 96
[2018-03-25] MEDS ORDERED: FAMOTIDINE 20 MG TAB PO SCH (21:00)
[2018-03-27] MEDS ORDERED: ERGOCALCIFEROL 50,000 UNIT CAP PO SCH (12:00)
== END 2018-03-25 21:00 | disposition home or self-care (01) | DRG 331 ==
LOC: 2ORMAIN 09:21 → 3SUR 15:05
PROVIDERS: ADMIT Surgery; ATTEND Surgery
PROC: 0DTG4ZZ Resection of Left Large Intestine, Percutaneous Endoscopic Approach (ICD-10-PCS; principal; 2018-03-23 11:15)
DX: C18.7 Malignant neoplasm of sigmoid colon (principal); E87.5 Hyperkalemia; F17.210 Nicotine dependence, cigarettes, uncomplicated; G25.81 Restless legs syndrome; H40.9 Unspecified glaucoma; J44.9 Chronic obstructive pulmonary disease, unspecified; M06.9 Rheumatoid arthritis, unspecified; R14.0 Abdominal distension (gaseous); Z86.72 Personal history of thrombophlebitis; Z87.442 Personal history of urinary calculi; Z86.718 Personal history of other venous thrombosis and embolism; Z87.01 Personal history of pneumonia (recurrent); Z79.899 Other long term (current) drug therapy; Z88.0 Allergy status to penicillin; Z86.19 Personal history of other infectious and parasitic diseases; Z86.69 Personal history of other diseases of the nervous system and sense organs; Z80.0 Family history of malignant neoplasm of digestive organs; Z80.7 Family history of other malignant neoplasms of lymphoid, hematopoietic and related tissues; Z82.49 Family history of ischemic heart disease and other diseases of the circulatory system; Z83.3 Family history of diabetes mellitus
CPT/HCPCS: 80048; 84132; 85025; 86850; 86900; 86901; 88309; 94640; 94760

== ENCOUNTER → 2018-05-14 | Outpatient (CLI) | payer MEDICARE, OTHER ==
--- NOTE | 2018-05-14 10:18 | US ---
EXAMINATION TYPE: US kidneys/renal and bladder DATE OF EXAM: 05/14/2018 COMPARISON: CT 02/23/2018 CLINICAL HISTORY: 72-year-old female R31.9 HEMATURIA. History of hydronephrosis and left side stone. TECHNIQUE: Multiple sonographic images of the kidneys and bladder are obtained. FINDINGS: EXAM MEASUREMENTS: Right Kidney: 10.6 x 4.0 x 4.4 cm Left Kidney: 9.2 x 4.6 x 4.3 cm Right Kidney: No hydronephrosis. Non-obstructing echogenic foci visualized measuring 0.4 cm at the mi dpole Left Kidney: No hydronephrosis. Hydronephrosis seen on prior CT has resolved. Bladder: wnl Bilateral Jets seen: No, left jet not visualized IMPRESSION: No hydronephrosis. Either a prominent vascular reflector or a nonobstructing 4 mm right renal calculu s.
== END | disposition home or self-care (01) ==
LOC: RADUSWWP 09:17
PROVIDERS: ATTEND Urology
DX: R31.9 Hematuria, unspecified (principal); Z87.448 Personal history of other diseases of urinary system; Z88.0 Allergy status to penicillin
CPT/HCPCS: 76770

== ENCOUNTER → 2018-10-20 | Outpatient (CLI) | payer MEDICARE, OTHER ==
[2018-10-20 10:42] LABS: Blood Urea Nitrogen 10 mg/dL (7-17)
--- NOTE | 2018-10-20 12:47 | CT ---
EXAMINATION TYPE: CT abdomen pelvis w con DATE OF EXAM: 10/20/2018 COMPARISON: 02/23/2018 HISTORY: Colon cancer, observe for mets. CT DLP: 441.6 mGycm Automated exposure control for dose reduction was used. CONTRAST: CT scan of the abdomen pelvis is performed with IV Contrast, patient injected with 100 mL of Isovue M 300. FINDINGS- LUNG BASES-linear subsegmental changes are noted. Most typical scar or atelectasis.. LIVER/GB- No gross abnormality is appreciated. PANCREAS- No gross abnormality is seen. SPLEEN- No gross abnormality is seen. ADRENALS- No gross abnormality is seen. KIDNEYS/BLADDER-no hydronephrosis. Appears to be cortical loss involving the left kidney likely in th e basis of chronic medical renal disease. Tiny hypodensities measuring less than 5 mm too small to ch aracterize within the left kidney.. BOWEL-bowel gas pattern nonspecific. There is postsurgical changes within the pelvis related to the b owel. Appendix normal.. LYMPH NODES- No greater than 1cm abdominal or pelvic lymph nodes areappreciated. OSSEOUS STRUCTURES-hypertrophic and degenerative change of the vertebral column. Curvature the spine noted. Arthropathy of the hips. Disc bulging at L4-L5 noted. OTHER- there is a large soft tissue mass within the right breast measuring 7 x 5 cm. Scattered calci fications are seen within the breast tissue bilaterally. Within the right upper margin of the anterio r rectus muscle there appears to be asymmetric thickening measuring 3.3 cm which was not clearly seen on the prior exam. Recommend ultrasound to assess for possible soft tissue metastases. Atherosclerotic change of the aorta and branch vessels. IMPRESSION- 1. There is a large soft tissue mass in the right breast measuring 7 x 5 cm recommend mammogram. 2. There is interval development of a soft tissue mass within the upper margin of the right rectus mu scle measuring 3.3 cm which was not seen on the prior exam. Recommend ultrasound. 3 multilevel severe degenerative disc disease with scoliosis. Disc bulging or protrusion seen at multiple levels
== END | disposition home or self-care (01) ==
LOC: RADCTMAIN 10:04
PROVIDERS: ATTEND Internal Medicine Hematology & Oncology
DX: C18.7 Malignant neoplasm of sigmoid colon (principal); M62.89 Other specified disorders of muscle; Z88.0 Allergy status to penicillin
CPT/HCPCS: 82565; 84520; 74177; 36415; Q9967

== ENCOUNTER → 2018-11-24 | Outpatient (CLI) | payer MEDICARE, OTHER ==
[2018-11-24 16:19] LABS: ALT 27 U/L (8-44); AST 44 U/L (13-35); Albumin/Globulin Ratio 1.59 (1.60-3.17); Alkaline Phosphatase 89 U/L (41-126); Bilirubin, Conjugated <0.20 mg/dL (0.20-0.40); Globulin 2.7 g/dL (1.6-3.3); Total Bilirubin 0.5 mg/dL (0.3-1.2)
[2018-11-25 14:39] LABS: Hepatits C Virus RNA Not detected (Not detected); Hepatits C Virus RNA, Quant <12 IU/mL (<12); LOG HCV IU/mL <1.08 (<1.08)
== END | disposition home or self-care (01) ==
LOC: LABWHC1 08:41
PROVIDERS: ATTEND Physician Assistant
DX: B18.2 Chronic viral hepatitis C (principal)
CPT/HCPCS: 36415; 80076; 87522

== ENCOUNTER 2018-12-07 09:12 | Day surgery (SDC) | payer MEDICARE, OTHER ==
[2018-12-07] MEDS ORDERED: ALPRAZolam 0.25 MG TAB PO ONE (09:32)
[2018-12-07 09:34] VITALS: TEMP 97.9
[2018-12-07 10:41] VITALS: BP 129/80; PULSE 78; RESP 16
--- NOTE | 2018-12-07 12:54 | US ---
ULTRASOUND GUIDED CORE BIOPSY RIGHT ANTERIOR ABDOMINAL WALL MASS: CLINICAL HISTORY: Right anterior abdominal wall mass FINDINGS: The procedure was explained to the patient. The risks, complications, benefits and alternatives were discussed and any questions were answered. Informed consent was obtained. Patient was placed supin e on the ultrasound table and prepped and draped in the usual sterile fashion. Utilizing a 18-gauge core biopsy needle, 3 passes were made into the requested mass. Patient was stable throughout the procedure. Pathology is pending. All elements of maximal barrier technique were utilized. IMPRESSION: 1. Successful ultrasound guided core biopsy right anterior abdominal wall mass.
== END 2018-12-07 10:50 | disposition home or self-care (01) ==
LOC: RADPROMAIN 09:12
PROVIDERS: ATTEND Surgery
DX: C79.89 Secondary malignant neoplasm of other specified sites (principal)
CPT/HCPCS: 20206; 76942; 88305; 88341; 88342

== ENCOUNTER → 2018-12-19 | Outpatient (CLI) | payer MEDICARE, OTHER ==
--- NOTE | 2018-12-22 15:51 | PE ---
Nuclear medicine PET/CT HISTORY: Colorectal carcinoma, subsequent Patient received 10.7 mCi F-18 FDG intravenously in delayed scanning performed from the skull base to the mid thighs. Localization and attenuation correction CT scan was performed. Correlation to CT abdomen pelvis 10/20/2018 Neck and chest: There is no evident cervical, mediastinal, axillary, or hilar adenopathy. Extensive c alcifications are present within the breasts with mild hypermetabolic uptake present somewhat asymmet tawanna right greater than left, SUV 2.5 medially. There is some associated skin thickening. The lungs sh ow no mass, there is no pleural or pericardial effusion. No suspicious hypermetabolic uptake noted. T here are coronary artery calcifications. ABDOMEN: There is a focus of uptake present along the anterior abdominal wall within the subcutaneous soft tissues anterior to the liver, there is an associated asymmetric increased soft tissue mass at this level, SUV is 3.4. No evident liver mass. No retroperitoneal adenopathy or ascites. No pelvic ad enopathy. Uterus and adnexal structures are normal. No suspicious hypermetabolic uptake. Osseous structures are unremarkable. IMPRESSION: Abnormal uptake along the abdominal wall, correlate with pathology, biopsy has been perfo rmed at this site. Breast uptake is nonspecific.
== END | disposition home or self-care (01) ==
LOC: RADPETMAIN 07:25
PROVIDERS: ATTEND Internal Medicine Hematology & Oncology
DX: R94.8 Abnormal results of function studies of other organs and systems (principal); C18.7 Malignant neoplasm of sigmoid colon
CPT/HCPCS: 78815; A9552

== ENCOUNTER 2019-02-17 07:14 | Day surgery (SDC) | payer MEDICARE, OTHER ==
[2019-02-15 13:15] VITALS: BMI 18.0
[~2019-02-17 07:14] MED LIST changes: -ALVIMOPAN 12 MG CAPSULE PO ONE; -CLINDAMYCIN 900 MG in DEXTROSE 5% IN WATER 50 ML IVPB ONE; -DEXAMETHASONE SOD PHOSPHATE 10 MG/ML 1 ML VIAL IV ONE; -GENTAMICIN 280 MG in SODIUM CHLORIDE 0.9% 100 ML IVPB ONE; -HEPARIN SODIUM,PORCINE 5,000 UNIT/ML 1 ML VIAL SQ ONE; +LACTATED RINGERS 1,000 ML IV SCH; +LIDOCAINE 1% 20 ML VIAL (10MG/ML) FOR IV START INTRADERMA PRN; -MIDAZOLAM 2 MG/2 ML VIAL IV PRN; -ONDANSETRON 4 MG/2 ML VIAL IVP ONE
[2019-02-17 07:40] VITALS: TEMP 97.1
[2019-02-17] MEDS ORDERED: PROPOFOL 10 MG/ML 20 ML VIAL IV ONE (07:47)
[2019-02-17] MEDS ORDERED: LIDOCAINE 1% INJ 10MG/ML (20 ML MDV) ONE (07:47)
--- NOTE | 2019-02-17 08:09 | P.PCN ---
Date of Procedure: 02/17/19 Procedure(s) Performed: BRIEF HISTORY: Patient is a 73-year-old pleasant white female, scheduled for an elective colonoscopy as a part of as part of surveillance of form prior history of colon cancer diagnosed in January of 2018. Colonoscopy in January 2018 revealed a proximal sigmoid colon mass and she is status post surgery followed by chemotherapy for 6 months. In November of this year she was noted to have anterior abdominal wall mass biopsies of which revealed metastatic adenocarcinoma. She is scheduled for surgery dating was given she can later this month. The meantime she is scheduled for a surveillance colonoscopy today. PROCEDURE PERFORMED: Colonoscopy. PREOPERATIVE DIAGNOSIS: History of colon cancer. IV sedation per Anesthesia. PROCEDURE: After informed consent was obtained, the patient, was brought into the endoscopy unit. IV sedation was administered by Anesthesia under continuous monitoring. Digital rectal examination was normal. Initially the Olympus CF-160 flexible video colonoscope was then inserted in the rectum, gradually advanced into the cecum without any difficulty. Careful examination was performed as the scope was gradually being withdrawn. Ileocecal valve and the appendiceal orifice were visualized and appeared normal. Prep was excellent. Mucosa of the cecum, ascending colon, transverse colon, descending colon, sigmoid colon, and rectum appeared normal. Scattered left sided diverticulosis seen. Retroflexion was performed in the rectum and small internal hemorrhoids were seen. The patient tolerated the procedure well. IMPRESSION: Normal-appearing colon from rectum to cecum with no evidence of colitis or colorectal neoplasia Scattered left sided diverticulosis. RECOMMENDATIONS: Findings of this examination were discussed with the patient as well as her family. She was advised to have a repeat surveillance colonoscopy in 3 years..
[2019-02-17 08:11] VITALS: RESP 16
[2019-02-17 08:30] VITALS: BP 154/77; PULSE 87
== END 2019-02-17 09:00 | disposition home or self-care (01) ==
LOC: ORWHC2ENDO 07:14
PROVIDERS: ATTEND Internal Medicine Gastroenterology
DX: C79.2 Secondary malignant neoplasm of skin (principal); Z85.038 Personal history of other malignant neoplasm of large intestine; K57.30 Diverticulosis of large intestine without perforation or abscess without bleeding; K64.8 Other hemorrhoids; J44.9 Chronic obstructive pulmonary disease, unspecified; K21.9 Gastro-esophageal reflux disease without esophagitis; B19.20 Unspecified viral hepatitis C without hepatic coma; H40.9 Unspecified glaucoma; Z79.899 Other long term (current) drug therapy; Z92.21 Personal history of antineoplastic chemotherapy; Z87.891 Personal history of nicotine dependence; Z87.442 Personal history of urinary calculi; Z86.69 Personal history of other diseases of the nervous system and sense organs; Z86.718 Personal history of other venous thrombosis and embolism; Z88.0 Allergy status to penicillin; Z88.8 Allergy status to other drugs, medicaments and biological substances; Z90.49 Acquired absence of other specified parts of digestive tract; Z98.890 Other specified postprocedural states
CPT/HCPCS: 45378; J2001; J2704

== ENCOUNTER 2019-05-06 11:27 | Inpatient (IN) | payer MEDICARE, OTHER ==
[2019-05-06] MEDS ORDERED: SODIUM CHLORIDE 0.9% 1,000 ML IV ONE (12:00)
--- NOTE | 2019-05-06 12:02 | ED ---
General Adult HPI - General Chief complaint: Neuro Symptoms/Deficit Stated complaint: Slurred speach, RT sided weakness Time Seen by Provider: 05/06/19 11:50 Source: patient Mode of arrival: wheelchair Limitations: no limitations - History of Present Illness Initial comments: 73-year-old female presenting with 2 weeks of right lower extremity weakness. She states that 2 weeks prior she was getting out of the car when she most fell secondary to her right leg being weak. She states since then she has had intermittent periods of weakness. 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 States she has a previous history of colon cancer with resection and chemotherapy. She denies any fevers but admits to chills and heaviness in her arms. Denies any chest pain or shortness of breath or new abdominal pain. - Related Data Home Medications Medication Instructions Recorded Confirmed Gabapentin [Neurontin] 400 mg PO TID 05/06/14 05/06/19 Omeprazole [PriLOSEC] 20 mg PO DAILY 05/06/14 05/06/19 Albuterol Inhaler [Ventolin Hfa 1 - 2 puff INHALATION RT-Q6H PRN 02/10/18 05/06/19 Inhaler] Ergocalciferol (Vitamin D2) 50,000 unit PO SA 03/23/18 05/06/19 [Vitamin D2] Albuterol Nebulized [Ventolin 2.5 mg INHALATION Q6H PRN 02/15/19 05/06/19 Nebulized] Doxycycline Hyclate [Vibramycin] 100 mg PO BID 05/06/19 05/06/19 HYDROcodone/APAP 5-325MG [[place] 1 tab PO Q6HR PRN 05/06/19 05/06/19 5-325] Ipratropium/Albuterol Sulfate 1 puff INHALATION RT-QID PRN 05/06/19 05/06/19 [Combivent Respimat Inhaler] Ondansetron [Zofran] 4 mg PO Q8HR PRN 05/06/19 05/06/19 Previous Rx's Medication Instructions Recorded Nicotine 21Mg/24Hr Patch [Habitrol] 1 patch TRANSDERM DAILY #12 patch 05/13/17 Allergies Allergy/AdvReac Type Severity Reaction Status Date / Time Penicillins Allergy Severe Anaphylaxis Verified 05/06/19 13:00 marijuana Allergy Unknown Verified 05/06/19 13:00 Review of Systems ROS Statement: Those systems with pertinent positive or pertinent negative responses have been documented in the HPI. Review of Systems Constitutional: Denies fever, chills Eyes: Denies change in vision, Denies pain Ears, nose, mouth, throat: Denies headaches, Denies sore throat Cardiovascular: Denies chest pain. Denies palpitations Respiratory: Denies shortness of breath, Denies cough Gastrointestinal: Denies abdominal pain. Denies nausea, vomiting, diarrhea. Genitourinary: Denies hematuria, Denies infections Musculoskeletal: Denies pain, Denies swelling Integumentary: Denies rash Neurological: Denies headache, Positive weakness, focal numbness Psychiatric: Denies anxiety, Denies depression Hematologic/Lymphatic: Denies easy bleeding or bruising ROS Other: All systems not noted in ROS Statement are negative. Past Medical History Past Medical History: Asthma, Cancer, COPD, Deep Vein Thrombosis (DVT), Eye Disorder, Liver Disease, Pneumonia, Rheumatoid Arthritis (RA), Seizure Disorder Additional Past Medical History / Comment(s): HX PLEURISY CHILD; HAS "COMPROMISED LUNGS," BRONCHITIS AND PNEUMONIA NUMEROUS TIMES. HX R PNEUMOTHORAX 30 YRS AGO. NUMEROUS FX, TEETH KNOCKED OUt, HX RLS. HX OF SEIZURES, HX Hepatitis C at 16 yrs of age. RT eye Glaucoma. thrombophlebitis x2, [place] [id number] for colon surgery @ [facility] next History of Any Multi-Drug Resistant Organisms: None Reported Past Surgical History: Bowel Resection, Tonsillectomy Additional Past Surgical History / Comment(s): Colonoscopy. KIDNEY STONE REMOVAL. bowel surgery due to CA Past Anesthesia/Blood Transfusion Reactions: No Reported Reaction Past Psychological History: No Psychological Hx Reported Smoking Status: Former smoker - Past Family History Father Family Medical History: No Reported History Mother Family Medical History: Cancer, Coronary Artery Disease (CAD), Diabetes Mellitus Additional Family Medical History / Comment(s): Colon cancer Daughter(s) Family Medical History: Cancer Additional Family Medical History / Comment(s): Hodgkins General Exam - General Exam Comments Initial Comments: General: Awake, alert, No acute Distress HENT: Normocephalic. Atraumatic Eyes: PERRL. EOMI. No scleral icterus. No injected conjunctiva Neck: Full ROM Chest/Lungs: Clear to auscultation bilaterally. No wheezing, rhonchi, or rales. Right chest wall port. Cardiac: Sinus tachycardia. No murmurs or rubs Abdomen/GI: Soft, nontender, nondistended. No rebound, guarding, or rigidity. Musculoskeletal: Full ROM Skin: Warm, dry, intact Neurologic: A/Ox3. RLE drift (does not hit bed) and C6 sensory deficit on the right. Remainder of neurologic exam unremarkable. NIHSS 2 Limitations: no limitations Course Vital Signs 05/06/19 05/06/19 05/06/19 11:31 15:30 16:00 Temperature 97.5 F L Pulse Rate 114 H 109 H 96 Respiratory 18 24 21 Rate Blood Pressure 124/73 128/78 128/78 O2 Sat by Pulse 97 96 95 Oximetry 05/06/19 05/06/19 05/06/19 16:30 17:00 17:30 Temperature Pulse Rate 88 Respiratory 20 Rate Blood Pressure 118/65 115/55 104/58 O2 Sat by Pulse 95 94 L 96 Oximetry 05/06/19 05/06/19 05/06/19 18:00 18:15 18:30 Temperature Pulse Rate 84 82 88 Respiratory 19 15 19 Rate Blood Pressure 134/75 142/82 140/80 O2 Sat by Pulse 96 96 Oximetry 05/06/19 19:00 Temperature Pulse Rate 82 Respiratory 15 Rate Blood Pressure 142/82 O2 Sat by Pulse Oximetry Medical Decision Making - Medical Decision Making 73 yoF presenting with right sided weakness and chills. O ninitial exam the patient is awake, alert, and in NAD. VSS. A code stroke was not called as her symptoms occurred two weeks prior. Her laboratory workup revealed neutropenia. At this time she requires admission for CVA and neutropenia. - Lab Data Result diagrams: 05/07/19 05:55 05/07/19 05:55 Lab Results 05/06/19 05/06/19 05/06/19 Range/Units 11:50 11:50 11:50 WBC 1.8 L (3.8-10.6) k/uL RBC 3.42 L (3.80-5.40) m/uL Hgb 11.7 (11.4-16.0) gm/dL Hct 33.4 L (34.0-46.0) % MCV 97.5 (80.0-100.0) fL MCH 34.2 (25.0-35.0) pg MCHC 35.1 (31.0-37.0) g/dL RDW 15.5 (11.5-15.5) % Plt Count 141 L (150-450) k/uL Neutrophils % (Manual) 54 % Lymphocytes % (Manual) 34 % Monocytes % (Manual) 9 % Eosinophils % (Manual) 3 % Neutrophils # (Manual) 0.97 L (1.3-7.7) k/uL Lymphocytes # (Manual) 0.61 L (1.0-4.8) k/uL Monocytes # (Manual) 0.16 (0-1.0) k/uL Eosinophils # (Manual) 0.05 (0-0.7) k/uL Nucleated RBCs 0 (0-0) /100 WBC Manual Slide Review Performed Macrocytosis Slight Sodium 140 (137-145) mmol/L Potassium 3.1 L (3.5-5.1) mmol/L Chloride 106 (98-107) mmol/L Carbon Dioxide 26 (22-30) mmol/L Anion Gap 8 mmol/L BUN 18 H (7-17) mg/dL Creatinine 0.55 (0.52-1.04) mg/dL Est GFR (CKD-EPI)AfAm >90 (>60 ml/min/1.73 sqM) Est GFR (CKD-EPI)NonAf >90 (>60 ml/min/1.73 sqM) Glucose 99 (74-99) mg/dL Plasma Lactic Acid Mauri 1.9 (0.7-2.0) mmol/L Calcium 9.6 (8.4-10.2) mg/dL Magnesium 1.6 (1.6-2.3) mg/dL Total Bilirubin 0.3 (0.2-1.3) mg/dL Conjugated Bilirubin 0.0 (0.0-0.3) mg/dL Unconjugated Bilirubin 0.0 (0.0-1.1) mg/dL Delta Bilirubin 0.3 H (0.0-0.2) mg/dL AST 65 H (14-36) U/L ALT 46 (9-52) U/L Alkaline Phosphatase 84 (38-126) U/L Troponin I (0.000-0.034) ng/mL Total Protein 6.9 (6.3-8.2) g/dL Albumin 3.8 (3.5-5.0) g/dL Lipase 818 H (23-300) U/L TSH 1.820 (0.465-4.680) mIU/L Urine Color Urine Appearance (Clear) Urine pH (5.0-8.0) Ur Specific [place] (1.001-1.035) Urine Protein (Negative) Urine Glucose (UA) (Negative) Urine Ketones (Negative) Urine Blood (Negative) Urine Nitrite (Negative) Urine Bilirubin (Negative) Urine Urobilinogen (<2.0) mg/dL Ur Leukocyte Esterase (Negative) Influenza Type A RNA (Not Detectd) Influenza Type B (PCR) (Not Detectd) 05/06/19 05/06/19 05/06/19 Range/Units 11:50 12:40 13:12 WBC (3.8-10.6) k/uL RBC (3.80-5.40) m/uL Hgb (11.4-16.0) gm/dL Hct (34.0-46.0) % MCV (80.0-100.0) fL MCH (25.0-35.0) pg MCHC (31.0-37.0) g/dL RDW (11.5-15.5) % Plt Count (150-450) k/uL Neutrophils % (Manual) % Lymphocytes % (Manual) % Monocytes % (Manual) % Eosinophils % (Manual) % Neutrophils # (Manual) (1.3-7.7) k/uL Lymphocytes # (Manual) (1.0-4.8) k/uL Monocytes # (Manual) (0-1.0) k/uL Eosinophils # (Manual) (0-0.7) k/uL Nucleated RBCs (0-0) /100 WBC Manual Slide Review Macrocytosis Sodium (137-145) mmol/L Potassium (3.5-5.1) mmol/L Chloride (98-107) mmol/L Carbon Dioxide (22-30) mmol/L Anion Gap mmol/L BUN (7-17) mg/dL Creatinine (0.52-1.04) mg/dL Est GFR (CKD-EPI)AfAm (>60 ml/min/1.73 sqM) Est GFR (CKD-EPI)NonAf (>60 ml/min/1.73 sqM) Glucose (74-99) mg/dL Plasma Lactic Acid Mauri (0.7-2.0) mmol/L Calcium (8.4-10.2) mg/dL Magnesium (1.6-2.3) mg/dL Total Bilirubin (0.2-1.3) mg/dL Conjugated Bilirubin (0.0-0.3) mg/dL Unconjugated Bilirubin (0.0-1.1) mg/dL Delta Bilirubin (0.0-0.2) mg/dL AST (14-36) U/L ALT (9-52) U/L Alkaline Phosphatase (38-126) U/L Troponin I <0.012 (0.000-0.034) ng/mL Total Protein (6.3-8.2) g/dL Albumin (3.5-5.0) g/dL Lipase (23-300) U/L TSH (0.465-4.680) mIU/L Urine Color Yellow Urine Appearance Clear (Clear) Urine pH 6.0 (5.0-8.0) Ur Specific [place] 1.020 (1.001-1.035) Urine Protein Trace H (Negative) Urine Glucose (UA) Negative (Negative) Urine Ketones Negative (Negative) Urine Blood Negative (Negative) Urine Nitrite Negative (Negative) Urine Bilirubin Negative (Negative) Urine Urobilinogen <2.0 (<2.0) mg/dL Ur Leukocyte Esterase Negative (Negative) Influenza Type A RNA Not Detected (Not Detectd) Influenza Type B (PCR) Not Detected (Not Detectd) Disposition Clinical Impression: Neutropenia, Cerebrovascular accident (CVA) Disposition: ADMITTED IP TO THIS [facility] Decision to Admit Reason: Admit from EC Decision Date: 05/06/19 Decision Time: 18:10
[2019-05-06 12:24] LABS: ALT 46 U/L (9-52); AST 65 U/L (14-36); African American GFR (CKD) >90 (>60 ml/min/1.73 sqM); Albumin 3.8 g/dL (3.5-5.0); Alkaline Phosphatase 84 U/L (38-126); Anion Gap 8 mmol/L; Bilirubin, Delta 0.3 mg/dL (0.0-0.2); Blood Urea Nitrogen 18 mg/dL (7-17); Calcium 9.6 mg/dL (8.4-10.2); Carbon Dioxide 26 mmol/L (22-30); Chloride 106 mmol/L (98-107); Glucose 99 mg/dL (74-99); Magnesium 1.6 mg/dL (1.6-2.3); Potassium 3.1 mmol/L (3.5-5.1); Sodium 140 mmol/L (137-145); Total Bilirubin 0.3 mg/dL (0.2-1.3); Total Protein 6.9 g/dL (6.3-8.2)
[2019-05-06 12:27] LABS: HCT 33.4 % (34.0-46.0); HGB 11.7 gm/dL (11.4-16.0); MCH 34.2 pg (25.0-35.0); MCHC 35.1 g/dL (31.0-37.0); MCV 97.5 fL (80.0-100.0); Macrocytosis Slight; Mean Platelet Volume 6.5; Platelet Count 141 k/uL (150-450); RBC 3.42 m/uL (3.80-5.40); RDW 15.5 % (11.5-15.5); WBC 1.8 k/uL (3.8-10.6)
--- NOTE | 2019-05-06 12:30 | XR ---
EXAMINATION TYPE: XR chest 2V DATE OF EXAM: 05/06/2019 COMPARISON: 05/04/2017 TECHNIQUE: PA and lateral views submitted. HISTORY: Right lower extremity weakness FINDINGS: The lungs are clear and there is no pneumothorax, pleural effusion, or focal pneumonia. Mediport ca theter seen with chronic deformity of the right clavicle and diffuse osteopenia. Chronic appearing ri ght humeral fracture also noted. Chronic rib deformity seen. No overt failure. Hypertrophic and degen erative change of the spine. Hyperinflation suggests COPD. IMPRESSION: 1. No acute process.
--- NOTE | 2019-05-06 12:49 | CT ---
EXAMINATION TYPE: CT brain wo con DATE OF EXAM: 05/06/2019 COMPARISON: 05/04/2017 HISTORY: Leg weakness and dizziness. CT DLP: 1060.4 mGycm Automated exposure control for dose reduction was used. FINDINGS: Intracranial atherosclerotic changes noted. Calvarium intact. Mild generalized degenerative change of the greater frontal lobe component. No midline shift or mass effect. No acute hemorrhage. IMPRESSION: DEGENERATIVE CHANGE WITH A GREATER FRONTAL LOBE COMPONENT.
[2019-05-06 13:01] LABS: Eosinophils # (M) 0.05 k/uL (0-0.7); Lymphocytes # (M) 0.61 k/uL (1.0-4.8); Monocytes # (M) 0.16 k/uL (0-1.0); Neutrophils % (M) 54 %; Nucleated Red Blood Cells 0 /100 WBC (0-0); Total Cells Counted 100
[2019-05-06 13:31] LABS: Appearance,Urine Clear (Clear); Bilirubin,Urine Negative (Negative); Blood,Urine Negative (Negative); Color,Urine Yellow; Glucose,Urine (UA) Negative (Negative); Ketones,Urine Negative (Negative); Leukocyte Esterase,Urine Negative (Negative); Nitrite,Urine Negative (Negative); Protein,Urine Trace (Negative); Urobilinogen,Urine <2.0 mg/dL (<2.0)
[2019-05-06] MEDS ORDERED: HYDROcodone/APAP 5-325MG 1 EACH TAB PO STA (14:12)
[2019-05-06] MEDS ORDERED: GABAPENTIN 300 MG CAP PO STA (14:12)
[2019-05-06] MEDS: PANTOPRAZOLE 40 MG TABLET PO SCH (20:50)
[2019-05-06] MEDS: HYDROcodone/APAP 5-325MG 1 EACH TAB PO PRN (20:50)
[2019-05-06] MEDS: ONDANSETRON 4 MG TAB PO PRN (20:50)
[2019-05-06] MEDS: GABAPENTIN 400 MG CAP PO SCH (20:50)
--- NOTE | 2019-05-06 23:26 | US ---
EXAMINATION TYPE: US carotid duplex BILAT DATE OF EXAM: 05/06/2019 COMPARISON: NONE CLINICAL HISTORY: Stenosis. Stenosis per order. Smoker. Episode of slurred speech. EXAM MEASUREMENTS: RIGHT: Peak Systolic Velocity (PSV) cm/sec ----- Right CCA: 64.2 ----- Right ICA: 107.8 ----- Right ECA: 82.3 ICA/CCA ratio: 1.7 RIGHT: End Diastole cm/sec ----- Right CCA: 15.4 ----- Right ICA: 31.4 ----- Right ECA: 9.8 LEFT: Peak Systolic Velocity (PSV) cm/sec ----- Left CCA: 62.5 ----- Left ICA: 76.4 ----- Left ECA: 78.7 ICA/CCA ratio: 1.2 LEFT: End Diastole cm/sec ----- Left CCA: 20.6 ----- Left ICA: 20.6 ----- Left ECA: 10.6 VERTEBRALS (direction of flow): Right Vertebral: Antegrade Left Vertebral: Antegrade Rhythm: Normal Intimal thickening seen bilaterally. Hyperechoic plaque seen bilateral carotid bifurcations. No eleva harpal velocities obtained. Unable to perform pulsed wave Doppler at proximal right CCA due to patient's pain level. IMPRESSION: There is antegrade flow in the vertebral arteries. There is bilateral plaque formation. Images and measurements suggest 30-40% stenosis in both internal carotid arteries. Criteria for Assigning % of Stenosis / Diameter reduction (Estimation based on the indirect measurements of the internal carotid artery velocities (ICA PSV). 1. Normal (no stenosis)=ICA PSV < 125 cm/s: ratio < 2.0: ICA EDV<40 cm/s. 2. Less than 50% stenosis=ICA PSV < 125 cm/s: ratio < 2.0: ICA EDV<40 cm/s. 3. 50 to 69% stenosis=ICA PSV of 125 to 230 cm/s: ration 2.0 ? 4.0: ICA EDV 40-100 cm/s. 4. Greater than 70% stenosis to near occlusion= ICA PSV > 230 cm/s: ratio > 4.0: ICA EDV > 100 cm/s. 5. Near occlusion= ICA PSV velocities may be low or undetectable: variable ratio and ICA EDV. 6. Total occlusion=unable to detect flow.
[2019-05-07] MEDS: PANTOPRAZOLE 40 MG TABLET PO SCH (06:39)
[2019-05-07 06:45] LABS: HCT 33.6 % (34.0-46.0); HGB 11.4 gm/dL (11.4-16.0); MCH 33.5 pg (25.0-35.0); MCV 98.6 fL (80.0-100.0); Macrocytosis Slight; Mean Platelet Volume 6.6; Platelet Count 112 k/uL (150-450); RDW 15.4 % (11.5-15.5)
[2019-05-07 06:51] LABS: WBC 1.3 k/uL (3.8-10.6)
[2019-05-07 06:57] LABS: African American GFR (CKD) >90 (>60 ml/min/1.73 sqM); Anion Gap 7 mmol/L; Blood Urea Nitrogen 11 mg/dL (7-17); Calcium 9.1 mg/dL (8.4-10.2); Carbon Dioxide 27 mmol/L (22-30); Chloride 105 mmol/L (98-107); Cholesterol 136 mg/dL (<200); Glucose 88 mg/dL (74-99); HDL Cholesterol 70 mg/dL (40-60); LDL Cholesterol,Calculated 34 mg/dL (0-99); Potassium 3.6 mmol/L (3.5-5.1); Sodium 139 mmol/L (137-145); Triglycerides 160 mg/dL (<150)
[2019-05-07] MEDS: GABAPENTIN 400 MG CAP PO SCH ×3 (07:53→19:39)
[2019-05-07] MEDS: HYDROcodone/APAP 5-325MG 1 EACH TAB PO PRN ×3 (07:54→19:39)
[2019-05-07] MEDS: NICOTINE 21MG/24HR PATCH TRANSDERM SCH (07:54)
--- NOTE | 2019-05-07 10:12 | P.HPIM ---
History of Present Illness H&P Date: 05/07/19 This is a 73-year-old female patient who presented with complaints of increased weakness to lower right extremity and intermittent neuro symptoms over the past 2 weeks. Patient reports symptoms started approximately 2 weeks ago in which she felt that her right leg with heavy. Patient also reports that she's had numbness to her right upper wrist area along with her left lower arm. Patient reports also the feeling of slurred speech that intermittently has occurred also. Patient reports the symptoms last just a few minutes and then subside. Patient does have a past medical history of colon cancer in which she currently follows with oncology services and receiving chemotherapy. Patient reports her next chemo is due 05/11/2019 and plans are for her to receive 6 months of chemo ending in September. Additional medical history includes asthma, COPD, DVT, I disorder, liver disease, pneumonia, respiratory arthritis, seizure disorder and ex-smoker. Upon exam neuro assessment is within normal limits no signs of facial droopsigns of extremity weakness. Head CT completed showing degenerative change with a greater frontal lobe component. Chest x-ray completed showing no acute process. At this time patient is resting comfortably in bed. Patient denies chest pain or shortness of breath. Patient denies nausea vomiting or diarrhea. Patient denies any urinary burning or frequency. Review of Systems Please refer to HPI otherwise unremarkable Past Medical History Past Medical History: Asthma, Cancer, COPD, Deep Vein Thrombosis (DVT), Eye Disorder, Liver Disease, Pneumonia, Rheumatoid Arthritis (RA), Seizure Disorder Additional Past Medical History / Comment(s): HX PLEURISY CHILD; HAS " COMPROMISED LUNGS," BRONCHITIS AND PNEUMONIA NUMEROUS TIMES. HX R PNEUMOTHORAX 30 YRS AGO. NUMEROUS FX, TEETH KNOCKED OUt, HX RLS. HX OF SEIZURES, HX Hepatitis C at 16 yrs of age. RT eye Glaucoma. thrombophlebitis x2, [place] [id number] for colon surgery @ [facility] next History of Any Multi-Drug Resistant Organisms: None Reported Past Surgical History: Bowel Resection, Tonsillectomy Additional Past Surgical History / Comment(s): Colonoscopy. KIDNEY STONE REMOVAL. bowel surgery due to [place] Past Anesthesia/Blood Transfusion Reactions: No Reported Reaction Past Psychological History: No Psychological Hx Reported Smoking Status: Former smoker - Past Family History Father Family Medical History: No Reported History Mother Family Medical History: Cancer, Coronary Artery Disease (CAD), Diabetes Mellitus Additional Family Medical History / Comment(s): Colon cancer Daughter(s) Family Medical History: Cancer Additional Family Medical History / Comment(s): Hodgkins Medications and Allergies Home Medications Medication Instructions Recorded Confirmed Type Gabapentin [Neurontin] 400 mg PO TID 05/06/14 05/06/19 History Omeprazole [PriLOSEC] 20 mg PO DAILY 05/06/14 05/06/19 History Nicotine 21Mg/24Hr Patch [Habitrol] 1 patch TRANSDERM DAILY #12 patch 05/13/17 05/06/19 Rx Albuterol Inhaler [Ventolin Hfa 1 - 2 puff INHALATION RT-Q6H PRN 02/10/18 05/06/19 History Inhaler] Ergocalciferol (Vitamin D2) 50,000 unit PO SA 03/23/18 05/06/19 History [Vitamin D2] Albuterol Nebulized [Ventolin 2.5 mg INHALATION Q6H PRN 02/15/19 05/06/19 History Nebulized] Doxycycline Hyclate [Vibramycin] 100 mg PO BID 05/06/19 05/06/19 History HYDROcodone/APAP 5-325MG [[place] 1 tab PO Q6HR PRN 05/06/19 05/06/19 History 5-325] Ipratropium/Albuterol Sulfate 1 puff INHALATION RT-QID PRN 05/06/19 05/06/19 History [Combivent Respimat Inhaler] Ondansetron [Zofran] 4 mg PO Q8HR PRN 05/06/19 05/06/19 History Allergies Allergy/AdvReac Type Severity Reaction Status Date / Time Penicillins Allergy Severe Anaphylaxis Verified 05/06/19 13:00 marijuana Allergy Unknown Verified 05/06/19 13:00 Physical Exam Vitals: Vital Signs Temp Pulse Pulse Resp BP BP Pulse Ox 05/07/19 03:37 97.6 F 86 16 140/72 95 05/07/19 03:36 77 18 05/07/19 00:00 98 F 77 18 136/74 98 05/06/19 20:00 98.4 F 88 18 146/68 97 05/06/19 19:21 98.4 F 88 18 146/68 05/06/19 19:00 82 15 142/82 10/10/19 18:30 88 19 140/80 96 05/06/19 18:15 82 15 142/82 05/06/19 18:00 84 19 134/75 96 05/06/19 17:30 88 20 104/58 96 05/06/19 17:00 115/55 94 L 05/06/19 16:30 118/65 95 05/06/19 16:00 96 21 128/78 95 05/06/19 15:30 109 H 24 128/78 96 05/06/19 11:31 97.5 F L 114 H 18 124/73 97 Intake and Output 05/06/19 05/07/19 05/07/19 22:59 06:59 14:59 Intake Total 0 240 Balance 0 240 Intake: Oral 0 240 Other: # Voids 1 Head normocephalic Neck supple Lungs clear to auscultation bilaterally no wheezing or crackles. Chest wall port in place. Heart regular rate and rhythm S1-S2, no rub or gallop Abdomen is soft nontender nondistended positive bowel sounds no hepatosplenomegaly Extremities no edema Neuro alert and orientated to 3. Speech is clear. No signs of facial droop. Eyebrow symmetry equal. Strength equal throughout all extremities. Speech is clear Results CBC & Chem 7: 05/07/19 05:55 05/07/19 05:55 Labs: Abnormal Lab Results - Last 24 Hours (Table) 05/06/19 05/06/19 05/06/19 Range/Units 11:50 11:50 13:12 WBC 1.8 L (3.8-10.6) k/uL RBC 3.42 L (3.80-5.40) m/uL Hct 33.4 L (34.0-46.0) % Plt Count 141 L (150-450) k/uL Neutrophils # (Manual) 0.97 L (1.3-7.7) k/uL Lymphocytes # (Manual) 0.61 L (1.0-4.8) k/uL Potassium 3.1 L (3.5-5.1) mmol/L BUN 18 H (7-17) mg/dL Delta Bilirubin 0.3 H (0.0-0.2) mg/dL AST 65 H (14-36) U/L Triglycerides (<150) mg/dL HDL Cholesterol (40-60) mg/dL Lipase 818 H (23-300) U/L Urine Protein Trace H (Negative) 05/07/19 05/07/19 Range/Units 05:55 05:55 WBC 1.3 L* (3.8-10.6) k/uL RBC 3.40 L (3.80-5.40) m/uL Hct 33.6 L (34.0-46.0) % Plt Count 112 L (150-450) k/uL Neutrophils # (Manual) (1.3-7.7) k/uL Lymphocytes # (Manual) (1.0-4.8) k/uL Potassium (3.5-5.1) mmol/L BUN (7-17) mg/dL Delta Bilirubin (0.0-0.2) mg/dL AST (14-36) U/L Triglycerides 160 H (<150) mg/dL HDL Cholesterol 70 H (40-60) mg/dL Lipase (23-300) U/L Urine Protein (Negative) Thrombosis Risk Factor Assmnt - Choose All That Apply Each Factor Represents 1 point: Abnormal pulmonary function (COPD) Each Risk Factor Represents 2 Points: Age 61-74 years Thrombosis Risk Factor Assessment Total Risk Factor Score: 3 Thrombosis Risk Factor Assessment Level: Moderate Risk Assessment and Plan Assessment: 1. Lower extremity weakness and slurred speech. Neurology services have been consulted. Head CT completed showing degenerative change with the greater frontal lobe component. Carotid Doppler completed showing antegrade flow in the vertebral arteries. There is bilateral plaque formation. Images and measurements suggest 30-40% stenosis in both internal carotids. MRI of the brain has been ordered. 2. Colon cancer. Patient is currently receiving chemotherapy. Follows with oncology services. Oncology services have been consulted 3. Neutropenic. White blood cell 1.3. Secondary to chemotherapy oncology service is consulted 4. History of COPD. No exacerbation at this time 5. History of rheumatoid arthritis. 6. History of seizure disorder 7. History of ex-smoker 8. Elevated lipase 818. Patient denies any nausea vomiting or diarrhea. Patie nt denies any abdominal pain repeat levels have been ordered DVT prophylaxis heparin. GI prophylaxis Pepcid Time with Patient: Greater than 30 (Greater than 60% of the total time spent in counseling and coordination of care. I performed an examination of the patient and discussed their management with the Nurse Practitioner. I have reviewed the Nurse Practitioner's notes and agree with the documented findings and plan of care)
[2019-05-07 10:40] LABS: Amylase 97 U/L (30-110)
[2019-05-07] MEDS: ONDANSETRON 4 MG TAB PO PRN ×2 (11:43→19:39)
--- NOTE | 2019-05-07 12:39 | P.CNNES ---
History of Present Illness Consult date: 05/07/19 Reason for Consult: Concern for stroke Chief complaint: Right-sided weakness and slurred speech History of Present Illness: HISTORY OF PRESENT ILLNESS: Thank you for allowing me to evaluate Ms. Carla Fink. Ms. Fink is a rheumatoid arthritis, seizure disorder, hepatitis C, right eye glaucoma, colon cancer, who presented to [facility] for 2 weeks of RLE weakness. Patient states that she was at the clinic that remove the pump from her port, when she was noted to have weakness in her right arm and leg, and the nurse territory to go to the emergency room. Patient states that she had a similar episode about 2 weeks ago but it was mild and she never went to the hospital at that time. Yesterday, she also had a noticeable slurred speech, but she states that all her symptoms have resolved. Patient is currently undergoing chemotherapy for an abdominal wall tumor. Patient was previously treated for colon cancer with resection and chemotherapy. Patient denies any headache, dizziness, double/blurry vision, numbness or tingling. She states that she is always larger, for which takes her medication and her by mouth intake. She denies any additional episodes previously other than the one that occurred about 2 weeks ago. Denies any recent sickness, but she has been on chemotherapy for her cancer. PAST MEDICAL HISTORY: Rheumatoid arthritis, seizure disorder, hepatitis C, right eye glaucoma, colon cancer PAST SURGICAL HISTORY: Tonsillectomy, bowel resection HOME MEDICATIONS: Omeprazole, gabapentin, nicotine, vitamin D, doxycycline, [place], Zofran ALLERGIES: Penicillin, marijuana SOCIAL HISTORY: Former smoker FAMILY HISTORY: Mother with coronary artery disease, diabetes, colon cancer daughter with Hodgkin's lymphoma. REVIEW OF SYSTEMS: The 14 systems are reviewed and no additional points are identified compared to the review of systems documented history and physical PHYSICAL EXAMINATION: VITAL SIGNS: T 97.6 HR 86 RR 16 BP 140/72 O2 sat 95% on RA GEN.: NAD, pleasant and cooperative, cachectic HEENT: NCAT, sclera without icterus NECK: Supple SKIN AND EXTREMITIES: Warm to touch, no edema NEURO: MENTAL STATUS: Patient alert and oriented to self, place, time. Able to name the current president. Speech fluent with mild dysarthria (the patient states that because she doesn't have her dentures), able to name and repeat, following all commands readily. No right and left disorientation, neglect. CRANIAL NERVES II THROUGH XII: II: Pupils are equal and reactive to light symmetrically. No afferent pupillary defect. Visual dumont are intact. III, IV, : No ptosis. Extraocular movements full. No nystagmus. V: Facial sensation intact from V1-3. VII. mild right facial droop VIII: Hearing intact to finger rub bilaterally. IX, X: Symmetric palate elevation. XI: Shoulder shrug intact. XII: Tongue midline without fasciculation or atrophy. MOTOR: Normal bulk/tone. No pronator drift or tremor. Strength is 5/5 throughout all 4 extremities. SENSORY: Intact to light touch, temperature, pinprick in all 4 extremities. Romberg is negative. REFLEXES: 2+ throughout. Toes are downgoing. COORDINATION: Finger to nose intact. No dysmetria. GAIT: Narrow-based and stable. Able to toe/heel/tandem walk DIAGNOSTIC TESTING: LABORATORY: WBC 1.3 hemoglobin 11.4 platelet 112 sodium 139 potassium 3.6 chloride 105 bicarb 27 BUN 11 creatinine 0.54 glucose 88 AST 65 ALT 46 alk phos 84 troponin <0.012 Total cholesterol 136 LDL 34 HDL 70 triglycerides 160 TSH 1.820 lipase 818 urinalysis negative influenza 0A/B not detected IMAGING: CT head without contrast 05/06/2019: Intracranial atherosclerotic changes. No acute interview process. Mild generalized degenerative change of the greater frontal lobe component. Carotid Doppler bilateral 05/06/2019: There is bilateral plaque formation. Images and measurements suggest 30-40% stenosis in both ICAs. ASSESSMENT: Ms. Fink is a rheumatoid arthritis, seizure disorder, hepatitis C, right eye glaucoma, colon cancer, who presented to [facility] for 2 weeks of RLE weakness. At this time, patient with mild dysarthria along with right facial droop. Patient with history of colon cancer, which places her at high risk of stroke. There is also a possibility of patient having a metastatic lesion from her cancer in her brain. RECOMMENDATIONS: 1. MRI brain with and without contrast 2. Transthoracic echocardiogram 3. Cardiac monitoring 4. Atorvastatin 80mg qhs (no aspirin at this time as patient with platelet count of 112) 5. Labs: A1C, TSH, FLP 6. PT/OT/ST per protocol 7. Neurology will continue to follow. Neurology is not available over the weekend in-house. However, feel free to Perfect[employer] message me over the weekend if you have any questions or concerns 8. Patient needs to follow up with neurologist as outpatient with her 1-2 weeks of discharge Past Medical History Past Medical History: Asthma, Cancer, COPD, Deep Vein Thrombosis (DVT), Eye Disorder, Liver Disease, Pneumonia, Rheumatoid Arthritis (RA), Seizure Disorder Additional Past Medical History / Comment(s): HX PLEURISY CHILD; HAS "COMPROMISED LUNGS," BRONCHITIS AND PNEUMONIA NUMEROUS TIMES. HX R PNEUMOTHORAX 30 YRS AGO. NUMEROUS FX, TEETH KNOCKED OUt, HX RLS. HX OF SEIZURES, HX Hepatitis C at 16 yrs of age. RT eye Glaucoma. thrombophlebitis x2, CA [id number]-pmnaetqrt for colon surgery @ [facility] next History of Any Multi-Drug Resistant Organisms: None Reported Past Surgical History: Bowel Resection, Tonsillectomy Additional Past Surgical History / Comment(s): Colonoscopy. KIDNEY STONE REMOVAL. bowel surgery due to CA Past Anesthesia/Blood Transfusion Reactions: No Reported Reaction Past Psychological History: No Psychological Hx Reported Additional Psychological History / Comment(s): VERY AGITATED & SHORT-TEMPERED, HOSTILE AT TIMES. Smoking Status: Former smoker Past Alcohol Use History: Occasional Additional Past Alcohol Use History / Comment(s): Has been smoking since 10 yrs old, trying to quit, down to 1-5 cigarettes some days. Quit October 2018 Past Drug Use History: Marijuana Additional Drug Use History / Comment(s): LAST USED MARIJUANA A TEENAGER. - Past Family History Father Family Medical History: No Reported History Mother Family Medical History: Cancer, Coronary Artery Disease (CAD), Diabetes Mellitus Additional Family Medical History / Comment(s): Colon cancer Daughter(s) Family Medical History: Cancer Additional Family Medical History / Comment(s): Hodgkins Medications and Allergies Home Medications Medication Instructions Recorded Confirmed Type Gabapentin [Neurontin] 400 mg PO TID 05/06/14 05/06/19 History Omeprazole [PriLOSEC] 20 mg PO DAILY 05/06/14 05/06/19 History Nicotine 21Mg/24Hr Patch [Habitrol] 1 patch TRANSDERM DAILY #12 patch 05/13/17 05/06/19 Rx Albuterol Inhaler [Ventolin Hfa 1 - 2 puff INHALATION RT-Q6H PRN 02/10/18 05/06/19 History Inhaler] Ergocalciferol (Vitamin D2) 50,000 unit PO SA 03/23/18 05/06/19 History [Vitamin D2] Albuterol Nebulized [Ventolin 2.5 mg INHALATION Q6H PRN 02/15/19 05/06/19 History Nebulized] Doxycycline Hyclate [Vibramycin] 100 mg PO BID 05/06/19 05/06/19 History HYDROcodone/APAP 5-325MG [[place] 1 tab PO Q6HR PRN 05/06/19 05/06/19 History 5-325] Ipratropium/Albuterol Sulfate 1 puff INHALATION RT-QID PRN 05/06/19 05/06/19 History [Combivent Respimat Inhaler] Ondansetron [Zofran] 4 mg PO Q8HR PRN 05/06/19 05/06/19 History Allergies Allergy/AdvReac Type Severity Reaction Status Date / Time Penicillins Allergy Severe Anaphylaxis Verified 05/06/19 13:00 marijuana Allergy Unknown Verified 05/06/19 13:00 Physical Examination - Vital Signs Vital Signs: Vital Signs Temp Pulse Pulse Resp BP BP Pulse Ox 05/07/19 03:37 97.6 F 86 16 140/72 95 05/07/19 03:36 77 18 05/07/19 00:00 98 F 77 18 136/74 98 05/06/19 20:00 98.4 F 88 18 146/68 97 05/06/19 19:21 98.4 F 88 18 146/68 05/06/19 19:00 82 15 142/82 05/06/19 18:30 88 19 140/80 96 05/06/19 18:15 82 15 142/82 05/06/19 18:00 84 19 134/75 96 05/06/19 17:30 88 20 104/58 96 05/06/19 17:00 115/55 94 L 05/06/19 16:30 118/65 95 05/06/19 16:00 96 21 128/78 95 05/06/19 15:30 109 H 24 128/78 96 05/06/19 11:31 97.5 F L 114 H 18 124/73 97 Intake and Output 05/06/19 05/07/19 05/07/19 22:59 06:59 14:59 Intake Total 0 Balance 0 Intake: Oral 0 Other: # Voids 1 Results - Laboratory Findings CBC and BMP: 05/07/19 05:55 05/07/19 05:55 Abnormal Lab Findings: Abnormal Labs 05/06/19 05/06/19 05/06/19 11:50 11:50 13:12 WBC 1.8 L RBC 3.42 L Hct 33.4 L Plt Count 141 L Neutrophils # (Manual) 0.97 L Lymphocytes # (Manual) 0.61 L Potassium 3.1 L BUN 18 H Delta Bilirubin 0.3 H AST 65 H Triglycerides HDL Cholesterol Lipase 818 H Urine Protein Trace H 05/07/19 05/07/19 05:55 05:55 WBC 1.3 L* RBC 3.40 L Hct 33.6 L Plt Count 112 L Neutrophils # (Manual) Lymphocytes # (Manual) Potassium BUN Delta Bilirubin AST Triglycerides 160 H HDL Cholesterol 70 H Lipase Urine Protein
[2019-05-07] MEDS: FILGRASTIM-SNDZ 480 MCG/0.8 ML SYRINGE SQ SCH (16:51)
[2019-05-07] MEDS: HEPARIN SODIUM,PORCINE 5,000 UNIT/ML 1 ML VIAL SQ SCH (19:39)
--- NOTE | 2019-05-07 19:40 | ECHOF ---
Referral Reason:Concerning for a stroke MEASUREMENTS -------- HEIGHT: 172.7 cm WEIGHT: 50.8 kg BP: IVSd: 0.6 cm (0.6 - 1.1) LVIDd: 3.5 cm (3.9 - 5.3) LVPWd: 0.9 cm (0.6 - 1.1) IVSs: 1.1 cm LVIDs: 1.9 cm LVPWs: 1.3 cm Ao Diam: 2.5 cm (2.0 - 3.7) AV Cusp: 2.1 cm (1.5 - 2.6) LA Diam: 2.9 cm (2.7 - 3.8) MV EXCURSION: 19.413 mm (> 18.000) MV EF SLOPE: 99 mm/s (70 - 150) EPSS: 1.0 cm MV E Zane: 0.86 m/s MV DecT: 172 ms MV A Zane: 0.59 m/s MV E/A Ratio: 1.46 RAP: 5.00 mmHg RVSP: 14.73 mmHg FINDINGS -------- Sinus rhythm. This was a technically difficult study with suboptimal views. Pt. Has Breast inplants The left ventricular size is normal. Left ventricular wall thickness is normal. Overall left vent ricular systolic function is normal with, an EF between 55 - 60 %. The right ventricle is normal in size. The left atrial size is normal. The right atrial size is normal. The aortic valve is trileaflet and appears structurally normal. The mitral valve is normal. There is trace mitral regurgitation. The tricuspid valve appears structurally normal. Trace tricuspid regurgitation present. Right cain tricular systolic pressure is normal at < 35 mmHg. Pulmonic valve appears structurally normal. The aortic root size is normal. Normal inferior vena cava with normal inspiratory collapse consistent with estimated right atrial pre ssure of 5 mmHg. There is a small, generalized pericardial effusion present. CONCLUSIONS -------- 1. Sinus rhythm. 2. This was a technically difficult study with suboptimal views. 3. Pt. Has Breast inplants 4. The left ventricular size is normal. 5. Left ventricular wall thickness is normal. 6. Overall left ventricular systolic function is normal with, an EF between 55 - 60 %. 7. The right ventricle is normal in size. 8. The left atrial size is normal. 9. The right atrial size is normal. 10. The aortic valve is trileaflet and appears structurally normal. 11. The mitral valve is normal. 12. There is trace mitral regurgitation. 13. The tricuspid valve appears structurally normal. 14. Trace tricuspid regurgitation present. 15. Right ventricular systolic pressure is normal at < 35 mmHg. 16. Pulmonic valve appears structurally normal. 17. The aortic root size is normal. 18. Normal inferior vena cava with normal inspiratory collapse consistent with estimated right atrial pressure of 5 mmHg. 19. There is a small, generalized pericardial effusion present. LICENSED PHYSICAL THERAPIST ASSISTANT: Ruthy Rahman RDCS
--- NOTE | 2019-05-07 20:16 | P.CONS ---
<Karla Fischer - Last Filed: 05/07/19 20:15> History of Present Illness - Reason for Consult Consult date: 05/07/19 Metastatic colon Cancer Requesting physician: Syeda Rice - Chief Complaint Right sided weakness - History of Present Illness Carla presented to Dr Koffi Queen for screening Colonoscopy, was asymptomatic. The patient mother & maternal G mother both had Colon cancers, 2 brother had multiple Colonic polyps. 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 The patient had Robotic-assited L Hemicolectomy by Dr Opal Montes De Oca on 03/23/18> rather small 1.8X1.3X0.7 cm Adenocarcinoma with Mucinous features identified present on serosal surfaces with 3-4 discontiguous tumor deposits identified. All 14 LN were negative for metastatic disease (Stage [id number] - IIB). Her post op course unremarkable. The patient smokes 1 PPD X 40 years, trying to quit, she denies ETOH use, she was born in [place] and raised in [place]. Family cancer history as above. 05/28/18: Tolerating Xeloda well. Reported mild nausea and diarrhea. 07/14/18: C/O nausea > Zofran effective but causing severe headache. Has irritation to both hands thumbs. Has stable mild diarrhea not requiring medical therapy. 08/13/18: Tolerating Xeloda well, irritation to both hands improved. Still has intermitent nausea> "weird"dreams after taking Compazine (Zofran caused severe headaches)!!. No diarrhea. 09/22/18: Tolerating Xeloda well, fully active. 10/27/18: Feels Ok, completed Xeloda. CT Scan : Cystic lesion in breast and upper R abdominal wall. 12/15/18: C/O RUQ abdominal wall pain, Bx of lesion C/W metastatic Colon Cancer. Was seen at [facility] > No surgery, On [place] for pain control.She was referred after evidence of rapid progression for palliative radiation, completed and now started on FOLFOX and Erbitux She is now status Post cycle two of FOLFOX with ERBITUX. Review of Systems A 14 point review of systems was assessed and completed and are all negative except for HPI Past Medical History Past Medical History: Asthma, Cancer, COPD, Deep Vein Thrombosis (DVT), Eye Disorder, Liver Disease, Pneumonia, Rheumatoid Arthritis (RA), Seizure Disorder Additional Past Medical History / Comment(s): HX PLEURISY CHILD; HAS "COMPROMISED LUNGS," BRONCHITIS AND PNEUMONIA NUMEROUS TIMES. HX R PNEUMOTHORAX 30 YRS AGO. NUMEROUS FX, TEETH KNOCKED OUt, HX RLS. HX OF SEIZURES, HX Hepatitis C at 16 yrs of age. RT eye Glaucoma. thrombophlebitis x2, [place] COLON-C URRENT-scheduled for colon surgery @ [facility] next History of Any Multi-Drug Resistant Organisms: None Reported Past Surgical History: Bowel Resection, Tonsillectomy Additional Past Surgical History / Comment(s): Colonoscopy. KIDNEY STONE REMOVAL. bowel surgery due to [place] Past Anesthesia/Blood Transfusion Reactions: No Reported Reaction Past Psychological History: No Psychological Hx Reported Additional Psychological History / Comment(s): VERY AGITATED & SHORT-TEMPERED, HOSTILE AT TIMES. Smoking Status: Former smoker Past Alcohol Use History: Occasional Additional Past Alcohol Use History / Comment(s): Has been smoking since 10 yrs old, trying to quit, down to 1-5 cigarettes some days. Quit October 2018 Past Drug Use History: Marijuana Additional Drug Use History / Comment(s): LAST USED MARIJUANA A TEENAGER. - Past Family History Father Family Medical History: No Reported History Mother Family Medical History: Cancer, Coronary Artery Disease (CAD), Diabetes Mellitus Additional Family Medical History / Comment(s): Colon cancer Daughter(s) Family Medical History: Cancer Additional Family Medical History / Comment(s): Hodgkins Medications and Allergies Home Medications Medication Instructions Recorded Confirmed Type Gabapentin [Neurontin] 400 mg PO TID 05/06/14 05/06/19 History Omeprazole [PriLOSEC] 20 mg PO DAILY 05/06/14 05/06/19 History Nicotine 21Mg/24Hr Patch [Habitrol] 1 patch TRANSDERM DAILY #12 patch 05/13/17 05/06/19 Rx Albuterol Inhaler [Ventolin Hfa 1 - 2 puff INHALATION RT-Q6H PRN 02/10/18 05/06/19 History Inhaler] Ergocalciferol (Vitamin D2) 50,000 unit PO SA 03/23/18 05/06/19 History [Vitamin D2] Albuterol Nebulized [Ventolin 2.5 mg INHALATION Q6H PRN 02/15/19 05/06/19 History Nebulized] Doxycycline Hyclate [Vibramycin] 100 mg PO BID 05/06/19 05/06/19 History HYDROcodone/APAP 5-325MG [[place] 1 tab PO Q6HR PRN 05/06/19 05/06/19 History 5-325] Ipratropium/Albuterol Sulfate 1 puff INHALATION RT-QID PRN 05/06/19 05/06/19 Hi story [Combivent Respimat Inhaler] Ondansetron [Zofran] 4 mg PO Q8HR PRN 05/06/19 05/06/19 History Allergies Allergy/AdvReac Type Severity Reaction Status Date / Time Penicillins Allergy Severe Anaphylaxis Verified 05/06/19 13:00 marijuana Allergy Unknown Verified 05/06/19 13:00 Physical Exam Vitals: Vital Signs Temp Pulse Pulse Resp BP BP Pulse Ox 05/07/19 12:00 97.8 F 89 16 119/54 98 05/07/19 08:00 97.6 F 50 L 14 132/77 100 05/07/19 03:37 97.6 F 86 16 140/72 95 05/07/19 03:36 77 18 05/07/19 00:00 98 F 77 18 136/74 98 05/06/19 20:00 98.4 F 88 18 146/68 97 05/06/19 19:21 98.4 F 88 18 146/68 05/06/19 19:00 82 15 142/82 05/06/19 18:30 88 19 140/80 96 05/06/19 18:15 82 15 142/82 05/06/19 18:00 84 19 134/75 96 05/06/19 17:30 88 20 104/58 96 05/06/19 17:00 115/55 94 L 05/06/19 16:30 118/65 95 05/06/19 16:00 96 21 128/78 95 Intake and Output 05/07/19 05/07/19 05/07/19 06:59 14:59 22:59 Intake Total 0 1140 Balance 0 1140 Intake: Intake, IV Titration 60 Amount Sodium Chloride 0.9% 1, 60 000 ml @ 999 mls/hr IV . Q1H1M ONE Rx#:[id number] Oral 0 1080 Other: # Voids 1 Weight 50.802 kg Gen: Alert and Oriented, NAD Head: NCNT Neck Supple Heart RRR Lungs No increased effort CTA B Abdomen: S/ND/NT Ext: No Rash, No Edema, Equal Strength Psych: Calm and Coroperative Neuro: Right sided parasthesia Results CBC & Chem 7: 05/07/19 05:55 05/07/19 05:55 Labs: Abnormal Lab Results - Last 24 Hours (Table) 05/07/19 05/07/19 05/07/19 Range/Units 05:55 05:55 05:55 WBC 1.3 L* (3.8-10.6) k/uL RBC 3.40 L (3.80-5.40) m/uL Hct 33.6 L (34.0-46.0) % Plt Count 112 L (150-450) k/uL Triglycerides 160 H (<150) mg/dL HDL Cholesterol 70 H (40-60) mg/dL Lipase 629 H (23-300) U/L CT Scan - head: report reviewed Assessment and Plan Plan: Metastatic Colon Cancer: - inoperable with rapid progression after Capcitabine - Underwent palliative radiation to abdominal wall met and now on treatment with FOLFOX and Erbitux Right Sided Paresthesia and RLE weakness: - Brain CT without contrast did not show acute abnormality but with inves tgation for malignancy MRI is much more sensistive, therefore will evaluate for cord involvement and brain metastasis with Brain, Thoracic and lumbar spine MRI Neutropenia: - Likely secondary to chemotherapy - Add Zarxio and will add neulasta to future chemotherapy - [place] cultures in progress - Afebrile Mild thrombocytopenia: - Secondary to Chemotherapy I have completed the full history and physical of this patient and developed the complete impression and plan, Agree with Karla Fischer AOMARTHA, dictated as a sccribe <Kallie,Harlan - Last Filed: 05/08/19 00:24> History of Present Illness - History of Present Illness Patient's oncology history is as noted above. She came into the hospital this time, complaining of cramping and weakness in the right lower extremity and foot, as well as both upper extremities below the elbow. The patient also noted some slurring of speech and difficulty in articulating words. The symptoms had been present off and on for the past 2 weeks. Therefore came into the emergency room and was admitted for possible TIA/CVA. CT of the brain was negative. Consult was therefore placed for further evaluation and determinations. At the time of reevaluation the patient reported no deficit. Review of Systems Constitutional: Reports weakness Eyes: denies blurred vision, denies pain Ears: deny: decreased hearing, ear discharge, earache, tinnitus Ears, nose, mouth and throat: Denies headache, Denies sore throat Cardiovascular: Reports decreased exercise tolerance Respiratory: Denies cough Gastrointestinal: Denies abdominal pain, Denies diarrhea, Denies nausea, Denies vomiting Genitourinary: Denies dysuria, Denies hematuria Menstruation: Reports postmenopausal Musculoskeletal: Reports arm numbness/tingling, Reports muscle weakness, Reports shooting arm pain Integumentary: Denies pruritus, Denies rash Neurological: Reports as per HPI, Reports paresthesias, Reports weakness Psychiatric: Denies anxiety, Denies depression Endocrine: Denies fatigue, Denies weight change Hematologic/Lymphatic: Reports as per HPI Physical Exam Vitals: Vital Signs Temp Pulse Resp BP Pulse Ox 05/07/19 23:50 97.9 F 81 18 121/64 98 05/07/19 23:49 89 16 05/07/19 20:00 98.3 F 89 16 119/58 96 05/07/19 16:48 97.8 F 88 16 144/67 96 05/07/19 15:38 89 16 05/07/19 12:00 97.8 F 89 16 119/54 98 05/07/19 08:00 97.6 F 50 L 14 132/77 100 05/07/19 03:37 97.6 F 86 16 140/72 95 05/07/19 03:36 77 18 Intake and Output 05/07/19 05/07/19 05/08/19 14:59 22:59 06:59 Intake Total 1140 680 Balance 1140 680 Intake: Intake, IV Titration 60 Amount Sodium Chloride 0.9% 1, 60 000 ml @ 999 mls/hr IV . Q1H1M ONE Rx#:[id number] Oral 1080 680 Other: Weight 50.802 kg - Constitutional General appearance: no acute distress - EENT Eyes: EOMI, PERRLA ENT: hearing grossly normal, normal oropharynx - Neck Neck: no lymphadenopathy Thyroid: bilateral: normal size - Respiratory Respiratory: bilateral: CTA - Cardiovascular Rhythm: regular Heart sounds: normal: S1, S2 - Gastrointestinal abdominal wall mass right upper quadrant, about 2.5 cm currently General gastrointestinal: normal bowel sounds, soft Localized gastrointestinal: mass: RUQ - Integumentary Integumentary: normal - Neurologic Increased skin sensitivity right lower extremity Neurologic: CNII-XII intact - Musculoskeletal Musculoskeletal: strength equal bilaterally - Psychiatric Psychiatric: A&O x's 3, appropriate affect Results CBC & Chem 7: 05/07/19 05:55 05/07/19 05:55 Labs: Abnormal Lab Results - Last 24 Hours (Table) 05/07/19 05/07/19 05/07/19 Range/Units 05:55 05:55 05:55 WBC 1.3 L* (3.8-10.6) k/uL RBC 3.40 L (3.80-5.40) m/uL Hct 33.6 L (34.0-46.0) % Plt Count 112 L (150-450) k/uL Triglycerides 160 H (<150) mg/dL HDL Cholesterol 70 H (40-60) mg/dL Lipase 629 H (23-300) U/L Microbiology - Last 24 Hours (Table) 05/06/19 15:18 Blood Culture - Preliminary Blood No Growth after 24 hours Comments: echocardiogram and carotid Doppler report reviewed Chest x-ray: report reviewed Assessment and Plan Plan: As above. At the time of evaluation or deficits had resolved. The patient reported intermittent episodes. The deficits as described seemed to be more of cramping, hyperesthesia, and weakness off-and-on. 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 It would be reasonable to rule out a structural problem due to which MRIs have been ordered. If these are negative, would recommend increasing the patient's gabapentin dose. At that time if the patient is stable chickened discharged home, if felt to be okay by the admitting service
[2019-05-07 20:38] LABS: Hemoglobin A1C 4.8 % (4.0-6.0)
[2019-05-08 06:25] LABS: Basophils % (A) 1 %; Eosinophils # (A) 0.1 k/uL (0-0.7); Eosinophils % (A) 1 %; HCT 31.9 % (34.0-46.0); HGB 10.5 gm/dL (11.4-16.0); Lymphocytes # (A) 0.5 k/uL (1.0-4.8); Lymphocytes % (A) 13 %; MCH 32.9 pg (25.0-35.0); MCHC 33.1 g/dL (31.0-37.0); MCV 99.6 fL (80.0-100.0); Macrocytosis Slight; Mean Platelet Volume 7.3; Monocytes # (A) 0.1 k/uL (0-1.0); Monocytes % (A) 3 %; Neutrophils # (A) 3.3 k/uL (1.3-7.7); Neutrophils % (A) 81 %; Platelet Count 107 k/uL (150-450); RDW 15.7 % (11.5-15.5); WBC 4.1 k/uL (3.8-10.6)
[2019-05-08 06:28] LABS: ALT 34 U/L (9-52); AST 49 U/L (14-36); African American GFR (CKD) >90 (>60 ml/min/1.73 sqM); Albumin 3.2 g/dL (3.5-5.0); Alkaline Phosphatase 70 U/L (38-126); Amylase 71 U/L (30-110); Anion Gap 5 mmol/L; Blood Urea Nitrogen 9 mg/dL (7-17); Carbon Dioxide 29 mmol/L (22-30); Chloride 104 mmol/L (98-107); Glucose 111 mg/dL (74-99); Magnesium 1.7 mg/dL (1.6-2.3); Potassium 3.6 mmol/L (3.5-5.1); Sodium 138 mmol/L (137-145); Total Bilirubin 0.3 mg/dL (0.2-1.3)
[2019-05-08] MEDS: PANTOPRAZOLE 40 MG TABLET PO SCH (06:32)
[2019-05-08] MEDS: GABAPENTIN 400 MG CAP PO SCH (07:32)
[2019-05-08] MEDS: HYDROcodone/APAP 5-325MG 1 EACH TAB PO PRN ×3 (07:32→20:28)
[2019-05-08] MEDS: ONDANSETRON 4 MG TAB PO PRN ×3 (07:32→20:29)
[2019-05-08] MEDS ORDERED: FAMOTIDINE 20 MG TAB PO SCH (09:00)
[2019-05-08] MEDS: HEPARIN SODIUM,PORCINE 5,000 UNIT/ML 1 ML VIAL SQ SCH ×2 (09:02→22:23)
[2019-05-08] MEDS: NICOTINE 21MG/24HR PATCH TRANSDERM SCH (09:02)
[2019-05-08] MEDS: FILGRASTIM-SNDZ 480 MCG/0.8 ML SYRINGE SQ SCH (09:06)
--- NOTE | 2019-05-08 13:41 | P.PN ---
Subjective Progress Note Date: 05/08/19 This is a 73-year-old female patient who presented with complaints of increased weakness to lower right extremity and intermittent neuro symptoms over the past 2 weeks. Patient reports symptoms started approximately 2 weeks ago in which she felt that her right leg with heavy. Patient also reports that she's had numbness to her right upper wrist area along with her left lower arm. Patient reports also the feeling of slurred speech that intermittently has occurred also. Patient reports the symptoms last just a few minutes and then subside. Patient does have a past medical history of colon cancer in which she currently follows with oncology services and receiving chemotherapy. Patient reports her next chemo is due 05/11/2019 and plans are for her to receive 6 months of chemo ending in September. Additional medical history includes asthma, COPD, DVT, I disorder, liver disease, pneumonia, respiratory arthritis, seizure disorder and ex-smoker. Upon exam neuro assessment is within normal limits no signs of facial droopsigns of extremity weakness. Head CT completed showing degenerative change with a greater frontal lobe component. Chest x-ray completed showing no acute process. At this time patient is resting comfortably in bed. Patient denies chest pain or shortness of breath. Patient denies nausea vomiting or diarrhea. Patient denies any urinary burning or frequency. On 05/08/2019 patient was seen and examined on the medical floor she is alert and oriented 3 in no apparent distress, she is complaining of muscle cramping and restless leg syndrome, she is complaining of numbness in her right leg, otherwise she denies any complaints at this time there is no fever or chills no headache or dizziness no chest pain no shortness of breath no cough no nausea or vomiting no abdominal pain no diarrhea and no urinary symptoms Objective - Vital Signs Vital signs: Vital Signs Temp 98.1 F 05/08/19 08:00 Pulse 98 05/08/19 08:00 Resp 18 05/08/19 04:00 BP 107/63 05/08/19 08:00 Pulse Ox 96 05/08/19 08:00 Intake & Output 05/07/19 05/08/19 05/08/19 18:59 06:59 18:59 Intake Total 1820 700 Balance 1820 700 Weight 50.802 kg 50.5 kg Intake: Intake, IV Titration 60 Amount Sodium Chloride 0.9% 1, 60 000 ml @ 999 mls/hr IV . Q1H1M ONE Rx#:[id number] Oral 1760 700 Other: # Voids 1 - Exam In general patient is alert and oriented 3 in no apparent distress HEENT head normocephalic and atraumatic Neck is supple no JVD no goiter no lymphadenopathy Chest exam reveals a few scattered rhonchi no wheezing Cardiac exam reveals regular heart sounds S1 and S2 no gallops no murmurs Abdomen is soft nontender no organomegaly with normal bowel sounds Extremity exam reveals no edema no cyanosis or clubbing Neurological examination reveals no gross focal deficit - Labs CBC & Chem 7: 05/08/19 06:00 05/08/19 06:00 Labs: Abnormal Lab Results - Last 24 Hours (Table) 05/08/19 05/08/19 Range/Units 06:00 06:00 RBC 3.20 L (3.80-5.40) m/uL Hgb 10.5 L (11.4-16.0) gm/dL Hct 31.9 L (34.0-46.0) % RDW 15.7 H (11.5-15.5) % Plt Count 107 L (150-450) k/uL Lymphocytes # 0.5 L (1.0-4.8) k/uL Glucose 111 H (74-99) mg/dL AST 49 H (14-36) U/L Total Protein 6.0 L (6.3-8.2) g/dL Albumin 3.2 L (3.5-5.0) g/dL Lipase 425 H (23-300) U/L Microbiology - Last 24 Hours (Table) 05/06/19 15:18 Blood Culture - Preliminary Blood No Growth after 24 hours Assessment and Plan Plan: 1. Lower extremity weakness and slurred speech. Neurology services have been consulted. Head CT completed showing degenerative change with the greater frontal lobe component. Carotid Doppler completed showing antegrade flow in the vertebral arteries. There is bilateral plaque formation. Images and measur ements suggest 30-40% stenosis in both internal carotids. MRI of the brain has been ordered. 2. Colon cancer. Patient is currently receiving chemotherapy. Follows with oncology services. Oncology services have been consulted 3. Neutropenic. White blood cell 1.3. Secondary to chemotherapy oncology service is consulted 4. History of COPD. No exacerbation at this time 5. History of rheumatoid arthritis. 6. History of seizure disorder 7. History of ex-smoker 8. Elevated lipase 818. Patient denies any nausea vomiting or diarrhea. Patient denies any abdominal pain repeat levels have been ordered DVT prophylaxis heparin. GI prophylaxis Pepcid Oncology consult reviewed, awaiting MRI of the brain and MRI of the spine Continue current management otherwise Patient is requesting increase in her gabapentin dose due to severe muscle cramping and restless leg syndrome
[2019-05-08] MEDS ORDERED: ERGOCALCIFEROL 50,000 UNIT CAP PO SCH (14:00)
[2019-05-08] MEDS: GABAPENTIN 300 MG CAP PO SCH ×2 (17:47→20:28)
[2019-05-09] MEDS: HYDROcodone/APAP 5-325MG 1 EACH TAB PO PRN ×3 (05:23→20:08)
[2019-05-09] MEDS: GABAPENTIN 300 MG CAP PO SCH ×3 (05:23→20:09)
[2019-05-09] MEDS: ONDANSETRON 4 MG TAB PO PRN ×3 (05:24→20:08)
[2019-05-09] MEDS: PANTOPRAZOLE 40 MG TABLET PO SCH (05:52)
[2019-05-09 06:35] LABS: Basophils % (A) 0 %; Eosinophils # (A) 0.1 k/uL (0-0.7); Eosinophils % (A) 1 %; HCT 31.3 % (34.0-46.0); HGB 10.8 gm/dL (11.4-16.0); Lymphocytes # (A) 0.9 k/uL (1.0-4.8); Lymphocytes % (A) 12 %; MCH 34.1 pg (25.0-35.0); MCHC 34.4 g/dL (31.0-37.0); MCV 99.1 fL (80.0-100.0); Macrocytosis Slight; Mean Platelet Volume 6.9; Monocytes # (A) 0.2 k/uL (0-1.0); Monocytes % (A) 3 %; Neutrophils # (A) 6.2 k/uL (1.3-7.7); Neutrophils % (A) 84 %; RBC 3.16 m/uL (3.80-5.40); RDW 15.5 % (11.5-15.5); WBC 7.4 k/uL (3.8-10.6)
[2019-05-09 06:48] LABS: ALT 34 U/L (9-52); AST 51 U/L (14-36); African American GFR (CKD) >90 (>60 ml/min/1.73 sqM); Albumin 3.3 g/dL (3.5-5.0); Alkaline Phosphatase 99 U/L (38-126); Anion Gap 7 mmol/L; Blood Urea Nitrogen 7 mg/dL (7-17); Calcium 9.1 mg/dL (8.4-10.2); Carbon Dioxide 30 mmol/L (22-30); Chloride 102 mmol/L (98-107); Glucose 108 mg/dL (74-99); Potassium 3.3 mmol/L (3.5-5.1); Sodium 139 mmol/L (137-145); Total Bilirubin 0.4 mg/dL (0.2-1.3); Total Protein 6.2 g/dL (6.3-8.2)
[2019-05-09 07:04] LABS: Large Platelets Present; Platelet Count 94 k/uL (150-450)
[2019-05-09] MEDS: FILGRASTIM-SNDZ 480 MCG/0.8 ML SYRINGE SQ SCH (08:57)
[2019-05-09] MEDS: HEPARIN SODIUM,PORCINE 5,000 UNIT/ML 1 ML VIAL SQ SCH ×2 (08:57→20:18)
[2019-05-09] MEDS: NICOTINE 21MG/24HR PATCH TRANSDERM SCH (08:57)
[2019-05-09] MEDS: ALBUTEROL NEBULIZED 2.5 MG/3 ML INHALATION PRN ×2 (09:40→15:16)
--- NOTE | 2019-05-09 14:01 | P.PN ---
Subjective Progress Note Date: 05/09/19 This is a 73-year-old female patient who presented with complaints of increased weakness to lower right extremity and intermittent neuro symptoms over the past 2 weeks. Patient reports symptoms started approximately 2 weeks ago in which she felt that her right leg with heavy. Patient also reports that she's had numbness to her right upper wrist area along with her left lower arm. Patient reports also the feeling of slurred speech that intermittently has occurred also. Patient reports the symptoms last just a few minutes and then subside. Patient does have a past medical history of colon cancer in which she currently follows with oncology services and receiving chemotherapy. Patient reports her next chemo is due 05/11/2019 and plans are for her to receive 6 months of chemo ending in September. Additional medical history includes asthma, COPD, DVT, I disorder, liver disease, pneumonia, respiratory arthritis, seizure disorder and ex-smoker. Upon exam neuro assessment is within normal limits no signs of facial droopsigns of extremity weakness. Head CT completed showing degenerative change with a greater frontal lobe component. Chest x-ray completed showing no acute process. At this time patient is resting comfortably in bed. Patient denies chest pain or shortness of breath. Patient denies nausea vomiting or diarrhea. Patient denies any urinary burning or frequency. On 05/08/2019 patient was seen and examined on the medical floor she is alert and oriented 3 in no apparent distress, she is complaining of muscle cramping and restless leg syndrome, she is complaining of numbness in her right leg, otherwise she denies any complaints at this time there is no fever or chills no headache or dizziness no chest pain no shortness of breath no cough no nausea or vomiting no abdominal pain no diarrhea and no urinary symptoms On 05/09/2019 patient is alert and oriented 3 she is feeling well and denies any complaints at this time there is no fever or chills no headache or dizziness no chest pain no shortness of breath no cough no nausea or vomiting no abdominal pain no diarrhea and no urinary symptoms is still complaining of muscle cramping in her legs and numbness in the right lower extremity, we are awaiting MRI of the brain and and spine tomorrow. Objective - Vital Signs Vital signs: Vital Signs Temp 98.3 F 05/09/19 08:00 Pulse 93 05/09/19 12:00 Resp 18 05/09/19 04:00 BP 120/56 05/09/19 12:00 Pulse Ox 95 05/09/19 12:00 Intake & Output 05/08/19 05/09/19 05/09/19 18:59 06:59 18:59 Intake Total 700 280 Balance 700 280 Weight 50.1 kg Intake: Oral 700 280 Other: # Voids 1 3 - Exam In general patient is alert and oriented 3 in no apparent distress HEENT head normocephalic and atraumatic Neck is supple no JVD no goiter no lymphadenopathy Chest exam reveals a few scattered rhonchi no wheezing Cardiac exam reveals regular heart sounds S1 and S2 no gallops no murmurs Abdomen is soft nontender no organomegaly with normal bowel sounds Extremity exam reveals no edema no cyanosis or clubbing Neurological examination reveals no gross focal deficit - Labs CBC & Chem 7: 05/09/19 05:43 05/09/19 05:43 Labs: Abnormal Lab Results - Last 24 Hours (Table) 05/09/19 05/09/19 Range/Units 05:43 05:43 RBC 3.16 L (3.80-5.40) m/uL Hgb 10.8 L (11.4-16.0) gm/dL Hct 31.3 L (34.0-46.0) % Plt Count 94 L (150-450) k/uL Lymphocytes # 0.9 L (1.0-4.8) k/uL Potassium 3.3 L (3.5-5.1) mmol/L Glucose 108 H (74-99) mg/dL AST 51 H (14-36) U/L Total Protein 6.2 L (6.3-8.2) g/dL Albumin 3.3 L (3.5-5.0) g/dL Microbiology - Last 24 Hours (Table) 05/06/19 15:18 Blood Culture - Preliminary Blood No Growth after 48 hours Assessment and Plan Plan: 1. Lower extremity weakness and slurred speech. Neurology services have been consulted. Head CT completed showing degenerative change with the greater fr ontal lobe component. Carotid Doppler completed showing antegrade flow in the vertebral arteries. There is bilateral plaque formation. Images and measurements suggest 30-40% stenosis in both internal carotids. MRI of the brain has been ordered. 2. Colon cancer. Patient is currently receiving chemotherapy. Follows with oncology services. Oncology services have been consulted 3. Neutropenic. White blood cell 1.3. Secondary to chemotherapy oncology service is consulted 4. History of COPD. No exacerbation at this time 5. History of rheumatoid arthritis. 6. History of seizure disorder 7. History of ex-smoker 8. Elevated lipase 818. Patient denies any nausea vomiting or diarrhea. Patient denies any abdominal pain repeat levels have been ordered DVT prophylaxis heparin. GI prophylaxis Pepcid Oncology consult reviewed, awaiting MRI of the brain and MRI of the spine Continue current management otherwise Patient is requesting increase in her gabapentin dose due to severe muscle cramping and restless leg syndrome
[2019-05-09] MEDS ORDERED: Potassium Replacement Protocol 1 EACH MISC MISCELLANE PRN (14:33)
[2019-05-09] MEDS: POTASSIUM CHLORIDE 20 MEQ in WATER FOR INJECTION 1 100ML.BAG IVPB SCH ×2 (15:38→17:58)
[2019-05-10] MEDS: PANTOPRAZOLE 40 MG TABLET PO SCH (06:04)
[2019-05-10 06:22] LABS: Basophils % (A) 0 %; Eosinophils # (A) 0.1 k/uL (0-0.7); Eosinophils % (A) 1 %; HCT 31.2 % (34.0-46.0); HGB 10.2 gm/dL (11.4-16.0); Lymphocytes # (A) 0.7 k/uL (1.0-4.8); Lymphocytes % (A) 10 %; MCHC 32.8 g/dL (31.0-37.0); MCV 100.7 fL (80.0-100.0); Macrocytosis Slight; Monocytes # (A) 0.3 k/uL (0-1.0); Monocytes % (A) 4 %; Neutrophils # (A) 6.1 k/uL (1.3-7.7); Neutrophils % (A) 83 %; RDW 15.6 % (11.5-15.5); WBC 7.3 k/uL (3.8-10.6)
[2019-05-10 06:41] LABS: ALT 37 U/L (9-52); AST 47 U/L (14-36); African American GFR (CKD) >90 (>60 ml/min/1.73 sqM); Albumin 3.2 g/dL (3.5-5.0); Alkaline Phosphatase 100 U/L (38-126); Anion Gap 5 mmol/L; Blood Urea Nitrogen 6 mg/dL (7-17); Calcium 9.1 mg/dL (8.4-10.2); Carbon Dioxide 31 mmol/L (22-30); Chloride 103 mmol/L (98-107); Glucose 115 mg/dL (74-99); Potassium 3.4 mmol/L (3.5-5.1); Sodium 139 mmol/L (137-145); Total Bilirubin 0.2 mg/dL (0.2-1.3); Total Protein 6.1 g/dL (6.3-8.2)
[2019-05-10] MEDS: ONDANSETRON 4 MG TAB PO PRN ×3 (06:45→22:20)
[2019-05-10] MEDS: HYDROcodone/APAP 5-325MG 1 EACH TAB PO PRN ×2 (06:45→14:58)
[2019-05-10 06:46] LABS: Platelet Count 83 k/uL (150-450)
[2019-05-10] MEDS: ALBUTEROL NEBULIZED 2.5 MG/3 ML INHALATION PRN (07:53)
[2019-05-10] MEDS ORDERED: Potassium Replacement Protocol 1 EACH MISC MISCELLANE PRN ×2 (08:09→09:24)
[2019-05-10 08:42] LABS: Amylase 53 U/L (30-110)
[2019-05-10] MEDS ORDERED: POTASSIUM CHLORIDE ER 20 MEQ TAB.ER PO SCH (09:00)
[2019-05-10] MEDS: FILGRASTIM-SNDZ 480 MCG/0.8 ML SYRINGE SQ SCH (09:16)
[2019-05-10] MEDS: GABAPENTIN 300 MG CAP PO SCH ×3 (09:16→22:17)
[2019-05-10] MEDS: HEPARIN SODIUM,PORCINE 5,000 UNIT/ML 1 ML VIAL SQ SCH (09:17)
[2019-05-10] MEDS: NICOTINE 21MG/24HR PATCH TRANSDERM SCH (09:17)
[2019-05-10] MEDS: POTASSIUM CHLORIDE 20 MEQ in WATER FOR INJECTION 1 100ML.BAG IVPB SCH ×2 (10:00→11:30)
--- NOTE | 2019-05-10 11:00 | P.PN ---
Subjective Progress Note Date: 05/10/19 Principal diagnosis: neurological deficit, Hx colon cancer, on chemotherapy/EGFR inhibitor In f/u today pt is feeling much better, c/o mild RLE weakness, no progressive or unilateral numbness or tingling-she has a degree in fingers from chemo. No fevers, nausea, rash or swelling. Objective - Vital Signs Vital signs: Vital Signs Temp 97.6 F 05/10/19 08:00 Pulse 88 05/10/19 08:09 Resp 18 05/10/19 08:00 BP 119/58 05/10/19 08:00 Pulse Ox 98 05/10/19 08:00 Intake & Output 05/09/19 05/10/19 05/10/19 18:59 06:59 18:59 Intake Total 720 480 Balance 720 480 Weight 50.8 kg Intake: Intake, IV Titration 200 Amount Potassium Chloride 20 meq 200 In Water For Injection 1 100ml.bag @ 50 mls/hr IVPB Q2HR [facility] Rx#: [id number] Oral 520 480 Other: # Voids 2 - Constitutional General appearance: Present: cooperative, no acute distress, thin - EENT Eyes: Present: anicteric sclerae, EOMI ENT: Present: hearing grossly normal - Respiratory Details: respirations even and unlabored - Cardiovascular Rhythm: regular - Peripheral edema leg Peripheral Edema: bilateral: None - Gastrointestinal General gastrointestinal: Present: soft - Neurologic Neurologic: Present: CNII-XII intact - Musculoskeletal Musculoskeletal: Present: strength equal bilaterally - Psychiatric Psychiatric: Present: A&O x's 3, appropriate affect, intact judgment & insight - Labs CBC & Chem 7: 05/10/19 05:53 05/10/19 05:53 Labs: Abnormal Lab Results - Last 24 Hours (Table) 05/10/19 05/10/19 05/10/19 Range/Units 05:53 05:53 05:53 RBC 3.10 L (3.80-5.40) m/uL Hgb 10.2 L (11.4-16.0) gm/dL Hct 31.2 L (34.0-46.0) % MCV 100.7 H (80.0-100.0) fL RDW 15.6 H (11.5-15.5) % Plt Count 83 L (150-450) k/uL Lymphocytes # 0.7 L (1.0-4.8) k/uL Potassium 3.4 L (3.5-5.1) mmol/L Carbon Dioxide 31 H (22-30) mmol/L BUN 6 L (7-17) mg/dL Glucose 115 H (74-99) mg/dL AST 47 H (14-36) U/L Total Protein 6.1 L (6.3-8.2) g/dL Albumin 3.2 L (3.5-5.0) g/dL Lipase 333 H (23-300) U/L Microbiology - Last 24 Hours (Table) 05/06/19 15:18 Blood Culture - Preliminary Blood No Growth after 72 hours Assessment and Plan (1) Cancer of sigmoid colon Narrative/Plan: Pt recently started new regimen, s/p 2 cycles. Due to her presenting symptoms CT head performed, no evidence to suggest m etastatic disease or CVA. Neuro symptoms are further being worked up with pending MRI of head and T/L spine. Current Visit: Yes Status: Chronic Priority: High Code(s): C18.7 - MALIGNANT NEOPLASM OF SIGMOID COLON SNOMED Code(s): 292246596 (2) Neutropenia Narrative/Plan: WBC and ANC recovered, recheck in AM and D/C of [facility] if indicated Current Visit: Yes Status: Acute Priority: High Code(s): D70.9 - NEUTROPENIA, UNSPECIFIED SNOMED Code(s): 796342086
--- NOTE | 2019-05-10 11:18 | P.PN ---
Subjective Progress Note Date: 05/10/19 This is a 73-year-old female patient who presented with complaints of increased weakness to lower right extremity and intermittent neuro symptoms over the past 2 weeks. Patient reports symptoms started approximately 2 weeks ago in which she felt that her right leg with heavy. Patient also reports that she's had numbness to her right upper wrist area along with her left lower arm. Patient reports also the feeling of slurred speech that intermittently has occurred also. Patient reports the symptoms last just a few minutes and then subside. Patient does have a past medical history of colon cancer in which she currently follows with oncology services and receiving chemotherapy. Patient reports her next chemo is due 05/11/2019 and plans are for her to receive 6 months of chemo ending in September. Additional medical history includes asthma, COPD, DVT, I disorder, liver disease, pneumonia, respiratory arthritis, seizure disorder and ex-smoker. Upon exam neuro assessment is within normal limits no signs of facial droopsigns of extremity weakness. Head CT completed showing degenerative change with a greater frontal lobe component. Chest x-ray completed showing no acute process. At this time patient is resting comfortably in bed. Patient denies chest pain or shortness of breath. Patient denies nausea vomiting or diarrhea. Patient denies any urinary burning or frequency. On 05/08/2019 patient was seen and examined on the medical floor she is alert and oriented 3 in no apparent distress, she is complaining of muscle cramping and restless leg syndrome, she is complaining of numbness in her right leg, otherwise she denies any complaints at this time there is no fever or chills no headache or dizziness no chest pain no shortness of breath no cough no nausea or vomiting no abdominal pain no diarrhea and no urinary symptoms On 05/09/2019 patient is alert and oriented 3 she is feeling well and denies any complaints at this time there is no fever or chills no headache or dizziness no chest pain no shortness of breath no cough no nausea or vomiting no abdominal pain no diarrhea and no urinary symptoms is still complaining of muscle cramping in her legs and numbness in the right lower extremity, we are awaiting MRI of the brain and and spine tomorrow. On 05/10/2019 patient to undergo MRI today. Patient's alert and oriented 3. Patient is still complaining of some tingling to lower extremity. Patient denies chest pain or shortness of breath. Patient denies nausea vomiting or diarrhea. Patient denies any urinary burning or frequency. Patient has been in normal sinus rhythm per telemetry Objective - Vital Signs Vital signs: Vital Signs Temp 97.6 F 05/10/19 08:00 Pulse 88 05/10/19 08:09 Resp 18 05/10/19 08:00 BP 119/58 05/10/19 08:00 Pulse Ox 98 05/10/19 08:00 Intake & Output 05/09/19 05/10/19 05/10/19 18:59 06:59 18:59 Intake Total 720 480 Balance 720 480 Weight 50.8 kg Intake: Intake, IV Titration 200 Amount Potassium Chloride 20 meq 200 In Water For Injection 1 100ml.bag @ 50 mls/hr IVPB Q2HR [facility] Rx#: [id number] Oral 520 480 Other: # Voids 2 - Exam In general patient is alert and oriented 3 in no apparent distress HEENT head normocephalic and atraumatic Neck is supple no JVD no goiter no lymphadenopathy Chest exam reveals a few scattered rhonchi no wheezing Cardiac exam reveals regular heart sounds S1 and S2 no gallops no murmurs Abdomen is soft nontender no organomegaly with normal bowel sounds Extremity exam reveals no edema no cyanosis or clubbing Neurological examination reveals no gross focal deficit - Labs CBC & Chem 7: 05/10/19 05:53 05/10/19 05:53 Labs: Abnormal Lab Results - Last 24 Hours (Table) 05/10/19 05/10/19 05/10/19 Range/Units 05:53 05:53 05:53 RBC 3.10 L (3.80-5.40) m/uL Hgb 10.2 L (11.4-16.0) gm/dL Hct 31.2 L (34.0-46.0) % MCV 100.7 H (80.0-100.0) fL RDW 15.6 H (11.5-15.5) % Plt Count 83 L (150-450) k/uL Lymphocytes # 0.7 L (1.0-4.8) k/uL Potassium 3.4 L (3.5-5.1) mmol/L Carbon Dioxide 31 H (22-30) mmol/L BUN 6 L (7-17) mg/dL Glucose 115 H (74-99) mg/dL AST 47 H (14-36) U/L Total Protein 6.1 L (6.3-8.2) g/dL Albumin 3.2 L (3.5-5.0) g/dL Lipase 333 H (23-300) U/L Microbiology - Last 24 Hours (Table) 05/06/19 15:18 Blood Culture - Preliminary Blood No Growth after 72 hours Assessment and Plan Assessment: 1. Lower extremity weakness and slurred speech. Neurology services have been consulted. Head CT completed showing degenerative change with the greater frontal lobe component. Carotid Doppler completed showing antegrade flow in the vertebral arteries. There is bilateral plaque formation. Images and measurements suggest 30-40% stenosis in both internal carotids. MRI of the brain has been ordered. 2. Cancer of the sigmoid colon. Patient is currently receiving chemotherapy. Follows with oncology services. Oncology services have been consulted 3. Neutropenic. White blood cell 1.3. Secondary to chemotherapy oncology service is consulted 4. History of COPD. No exacerbation at this time 5. History of rheumatoid arthritis. 6. History of seizure disorder 7. History of ex-smoker 8. Elevated lipase 818. Patient denies any nausea vomiting or diarrhea. Patient denies any abdominal pain repeat levels have been ordered. Lipase is trending down 9. Thrombocytopenia secondary to chemotherapy. DVT prophylaxis SCDs due to thrombocytopenia. GI prophylaxis Pepcid Oncology consult reviewed, awaiting MRI of the brain and MRI of the spine Continue current management otherwise Patient is requesting increase in her gabapentin dose due to severe muscle cramping and restless leg syndrome I performed an examination of the patient and discussed their management with the Nurse Practitioner. I have reviewed the Nurse Practitioner's notes and agree with the documented findings and plan of care
--- NOTE | 2019-05-10 13:55 | P.PN ---
Subjective Progress Note Date: 05/10/19 Principal diagnosis: * Paresthesias, rule out TIA, rule out CVA, versus side effects of chemotherapy * Macrocytosis, rule out B12/folate deficiency * Metastatic colon cancer, rule out spinal metastasis. Patient was seen by Dr. Lowry on 05/07/2019. Please refer to her note for julius pool. In summary, patient has been diagnosed with metastasis take colon cancer, undergoing chemotherapy. She developed some transient weakness of her right foot, paresthesias of the right leg, some slurred speech. The symptoms resolved in half an hour. She also felt disoriented, which she attributed to the chemotherapy side effects. Patient states that she has been in the hospital since 05/06/2019, and has not had any more symptoms. Sometimes she does get confused, which she attributes to chemotherapy. She also has been very inactive while in the hospital. Objective - Vital Signs Vital signs: Vital Signs Temp 97.6 F 05/10/19 08:00 Pulse 88 05/10/19 08:09 Resp 18 05/10/19 08:00 BP 119/58 05/10/19 08:00 Pulse Ox 98 05/10/19 08:00 Intake & Output 05/09/19 05/10/19 05/10/19 18:59 06:59 18:59 Intake Total 720 960 Balance 720 960 Weight 50.8 kg Intake: Intake, IV Titration 200 Amount Potassium Chloride 20 meq 200 In Water For Injection 1 100ml.bag @ 50 mls/hr IVPB Q2HR [facility] Rx#: [id number] Oral 520 960 Other: # Voids 2 1 - Exam On examination patient is an elderly female, cachectic, but very pleasant, alert and awake. Speech and language functions are normal. No aphasia or dysarthria. Cranial nerves are significant for mild right flattening of the nasolabial fold . On muscle strength testing. The right manager express is 5-with normal on the left. Her hip flexion is 5-on the right, with 5 on left. Her ankle dorsiflexion are normal bilaterally. Toe extension is also normal bilaterally although the right toe extension sometimes gives out. Plantars are downgoing bilaterally. - Labs CBC & Chem 7: 05/10/19 05:53 05/10/19 05:53 Labs: Abnormal Lab Results - Last 24 Hours (Table) 10/05/10/19 05/10/19 Range/Units 05:53 05:53 05:53 RBC 3.10 L (3.80-5.40) m/uL Hgb 10.2 L (11.4-16.0) gm/dL Hct 31.2 L (34.0-46.0) % MCV 100.7 H (80.0-100.0) fL RDW 15.6 H (11.5-15.5) % Plt Count 83 L (150-450) k/uL Lymphocytes # 0.7 L (1.0-4.8) k/uL Potassium 3.4 L (3.5-5.1) mmol/L Carbon Dioxide 31 H (22-30) mmol/L BUN 6 L (7-17) mg/dL Glucose 115 H (74-99) mg/dL AST 47 H (14-36) U/L Total Protein 6.1 L (6.3-8.2) g/dL Albumin 3.2 L (3.5-5.0) g/dL Lipase 333 H (23-300) U/L Microbiology - Last 24 Hours (Table) 05/06/19 15:18 Blood Culture - Preliminary Blood No Growth after 72 hours Assessment and Plan Assessment: * Paresthesias, rule out TIA versus CVA. Spinal metastasis unlikely. Rule out B12 or folate deficiency, versus chemotherapeutic side effects. * Macrocytosis * Metastatic colon cancer * Tobacco user Plan: * Suggest starting aspirin 81 mg daily, if no medical contraindications. Patient's platelets are low 83, therefore will defer to hematology clearance before starting it. * Patient's carotid Doppler is normal, with 30-40% stenosis bilateral ICA. Antegrade flow in both vertebral arteries. * 2-D echo is normal. * We will check B12, folate levels. * Await MRI of the brain, and lumbar and thoracic spines.
[2019-05-11] MEDS: ONDANSETRON 4 MG TAB PO PRN (03:48)
[2019-05-11 06:21] LABS: ALT 43 U/L (9-52); AST 55 U/L (14-36); African American GFR (CKD) >90 (>60 ml/min/1.73 sqM); Albumin 3.4 g/dL (3.5-5.0); Alkaline Phosphatase 126 U/L (38-126); Anion Gap 5 mmol/L; Blood Urea Nitrogen 5 mg/dL (7-17); Calcium 9.2 mg/dL (8.4-10.2); Carbon Dioxide 30 mmol/L (22-30); Chloride 103 mmol/L (98-107); Glucose 93 mg/dL (74-99); Potassium 3.8 mmol/L (3.5-5.1); Sodium 138 mmol/L (137-145); Total Bilirubin 0.3 mg/dL (0.2-1.3); Total Protein 6.4 g/dL (6.3-8.2)
[2019-05-11] MEDS: HYDROcodone/APAP 5-325MG 1 EACH TAB PO PRN (06:21)
[2019-05-11] MEDS: PANTOPRAZOLE 40 MG TABLET PO SCH (06:21)
[2019-05-11 06:34] LABS: Basophils % (A) 0 %; Eosinophils # (A) 0.1 k/uL (0-0.7); Eosinophils % (A) 2 %; HCT 31.9 % (34.0-46.0); HGB 10.9 gm/dL (11.4-16.0); Lymphocytes # (A) 0.8 k/uL (1.0-4.8); Lymphocytes % (A) 13 %; MCHC 34.1 g/dL (31.0-37.0); MCV 99.6 fL (80.0-100.0); Macrocytosis Slight; Monocytes # (A) 0.5 k/uL (0-1.0); Monocytes % (A) 9 %; Neutrophils # (A) 4.3 k/uL (1.3-7.7); Neutrophils % (A) 72 %; RBC 3.21 m/uL (3.80-5.40); RDW 15.1 % (11.5-15.5)
[2019-05-11 06:42] LABS: Platelet Count 90 k/uL (150-450)
[2019-05-11] MEDS: ALBUTEROL NEBULIZED 2.5 MG/3 ML INHALATION PRN ×2 (07:50→13:15)
[2019-05-11] MEDS ORDERED: LORazepam 2 MG/ML INJ IV STA (09:12)
[2019-05-11] MEDS: NICOTINE 21MG/24HR PATCH TRANSDERM SCH (09:21)
[2019-05-11] MEDS: FILGRASTIM-SNDZ 480 MCG/0.8 ML SYRINGE SQ SCH (09:21)
[2019-05-11] MEDS: GABAPENTIN 300 MG CAP PO SCH ×2 (09:21→15:57)
[2019-05-11 11:47] VITALS: BMI 16.7
--- NOTE | 2019-05-11 12:09 | P.PN ---
Subjective Progress Note Date: 05/11/19 Principal diagnosis: * Paresthesias, probable side effect of chemotherapeutic agents. * Macrocytosis. B12 and folate deficiency ruled out. * Metastatic colon cancer, no evidence of spinal metastasis. Patient was seen by Dr. Lowry on 05/07/2019. Please refer to her note for details. In summary, patient has been diagnosed with metastasis take colon cancer, undergoing chemotherapy. She developed some transient weakness of her right foot, paresthesias of the right leg, some slurred speech. The symptoms resolved in half an hour. She also felt disoriented, which she attributed to the chemotherapy side effects. Patient states that she has been in the hospital since 05/06/2019, and has not had any more symptoms. Sometimes she does get confused, which she attributes to chemotherapy. She also has been very inactive while in the hospital. Patient states that she is feeling better today as compared to yesterday. Denies any new neurological symptoms. Objective - Vital Signs Vital signs: Vital Signs Temp 98.6 F 05/11/19 08:00 Pulse 94 05/11/19 08:01 Resp 16 05/11/19 08:01 BP 128/71 05/11/19 08:00 Pulse Ox 91 L 05/11/19 08:00 Intake & Output 05/10/19 05/11/19 05/11/19 18:59 06:59 18:59 Intake Total 960 120 Output Total 400 Balance 960 -400 120 Weight 50 kg 50 kg Intake: Oral 960 120 Output: Urine 400 Other: # Voids 2 0 # Bowel Movements 1 - Exam On examination patient is an elderly female, cachectic, but very pleasant, alert and awake. Speech and language functions are normal. No aphasia or dysarthria. Cranial nerves are significant for mild right flattening of the nasolabial fold . On muscle strength testing. The right peer tutor is 5-with normal on the left. Her hip flexion is 5-on the right, with 5 on left. Her ankle dorsiflexion are normal bilaterally. Toe extension is also normal bilaterally although the right toe extension sometimes gives out. Plantars are downgoing bilaterally. - Labs CBC & Chem 7: 05/11/19 05:20 05/11/19 05:20 Labs: Abnormal Lab Results - Last 24 Hours (Table) 05/11/19 05/11/19 Range/Units 05:20 05:20 RBC 3.21 L (3.80-5.40) m/uL Hgb 10.9 L (11.4-16.0) gm/dL Hct 31.9 L (34.0-46.0) % Plt Count 90 L (150-450) k/uL Lymphocytes # 0.8 L (1.0-4.8) k/uL BUN 5 L (7-17) mg/dL AST 55 H (14-36) U/L Albumin 3.4 L (3.5-5.0) g/dL Microbiology - Last 24 Hours (Table) 05/06/19 15:18 Blood Culture - Preliminary Blood No Growth after 96 hours Assessment and Plan Assessment: * Paresthesias, probable side effect of chemotherapeutic agent, oxaliplatin. No evidence of CVA on MRI of the brain. No spinal stenosis or spinal metastasis as per MRI. * Macrocytosis. B12 deficiency ruled out. * Metastatic colon cancer * Tobacco user Plan: * Patient's MRI of the brain showed no evidence of acute stroke. MRI of the lumbar spine also showed no evidence of metastasis. Official radiology report still pending. * Suggest starting aspirin 81 mg daily (or every other day), if no medical contraindications. Patient's platelets are low 83, therefore will defer to hematology clearance before starting it. * Patient's carotid Doppler is normal, with 30-40% stenosis bilateral ICA. Antegrade flow in both vertebral arteries. * 2-D echo is normal. * B12 normal 489, folate levels also normal > 24. * Neurologically clear for discharge. May consider PT OT evaluation before discharge.
[2019-05-11 12:12] VITALS: BP 117/70; TEMP 98.5
--- NOTE | 2019-05-11 12:44 | MR ---
EXAMINATION TYPE: MR thoracic spine wo/w con DATE OF EXAM: 05/11/2019 COMPARISON: PET/CT dated 12/19/2018 history of colorectal carcinoma. CT abdomen pelvis dated 10/20/2018 . HISTORY: R-sided weakness, hx of colorectal carcinoma. Evaluate for metastasis. CONTRAST: Standard multiplanar, multisequence MRI departmental protocol prior to and after the administration o f 5 mL intravenous Gadavist gadolinium contrast. FINDINGS: There are small T1/T2 hyperintense vertebral body hemangiomas of T8 and T9 as well as simil caden of T10. There is also a vertebral body hemangioma seen at C4. Multiple Schmorl's nodes are seen. No markedly T1 hypointense bone marrow replacing lesion is seen in the thoracic spine. No suspicious postcontrast enhancement is seen of the thoracic spine. Thoracic spinal cord signal is within normal limits. Some flow-related artifact is seen posteriorly along the mid to lower thecal sac. Postcontra st axial images are limited secondary to extensive motion artifact. The localizer images demonstrate degenerative disc disease of the cervical spine with probable disc herniations at C4-C5 and C5-C6 pos terior disc osteophyte complex at C3-C4 at least mild spinal canal stenosis, mild retrolisthesis of C 4 on C5 is also seen. There is a small central disc herniation at T7-T8 without spinal canal stenosis. Broad-based disc bul ges are also seen at T6-T7, T8-T9, and T9-T10. Disc desiccation is present at T10-T11, T11-T12 and T1 2-L1. No significant neural foraminal narrowing of the thoracic spine. Incidentally noted old healed right posterior rib fractures. IMPRESSION: 1. No suspicious bone marrow replacing process or abnormal enhancement of the thoracic spine to indic ate metastasis. 2. Small central disc herniation at T7-T8 and disc bulges at T6-T7, T8-T9, and T9-T10 as well as disc desiccation at the lower thoracic spine. No spinal canal stenosis nor neural foraminal narrowing. 3. Multiple old contiguous healed right rib fractures are partially visualized posteriorly. 4. Partially visualized degenerative disc disease of the cervical spine with retrolisthesis of C4 on C5 and probable disc herniations at C4-C5 and C5-C6. These are seen on the sagittal localizer image o nly and incompletely assessed.
[2019-05-11] MEDS ORDERED: NYSTATIN 100,000 UNIT/ML SUSP 500,000 UNIT/5 ML CUP PO SCH (13:00)
[2019-05-11 13:17] VITALS: RESP 16
[2019-05-11 13:26] VITALS: PULSE 92
--- NOTE | 2019-05-11 13:59 | MR ---
EXAMINATION TYPE: MR brain/lspine wo/w con DATE OF EXAM: 05/11/2019 COMPARISON: PET/CT dated 12/19/[address] brain dated 05/04/2017 HISTORY: R-sided weakness, hx of colorectal carcinoma. CONTRAST: Standard multiplanar, multisequence MRI departmental protocol was performed of the brain and lumbar s pine prior to and after the administration of 5 mL intravenous Gadavist gadolinium contrast. FINDINGS: Brain: Examination is limited secondary to patient motion. Diffusion weighted images demonstrate no evidence of recent infarct or other diffusion abnormality. T here is no suspicious extra-axial fluid collection. There is symmetric prominence of the ventricular system and peripheral sulci compatible with age-related volume loss. T2 weighted images of the brain are suboptimal given extensive motion. Punctate old lacunar injury seen of the posterior right lentif orm nucleus. There is partial opacification of the right mastoid air cells. Mild mucosal thickening i s seen in the ethmoid sinuses. Remainder the paranasal sinuses are well aerated. Motion artifact is also seen on the FLAIR axial fat-sat images. There is mild burden scattered foci o f T2/FLAIR hyperintensity within the periventricular and subcortical white matter, most commonly on t he basis of chronic microangiopathy. No sizable mass effect. No midline shift. Midline structures are unremarkable. Craniocervical junction appears within normal limits. The globes are symmetric and unremarkable. 2 mm nonenhancing pineal gland cyst is incidentally noted. There i s narrowing of the internal carotid arteries in the cavernous and supraclinoid portions, likely from calcific atheromatous change. Postcontrast images are slightly limited secondary to patient motion ho wever no abnormal intracranial enhancement is seen. Lumbar spine: The examination is limited secondary to patient motion. Discogenic endplate changes are seen throughout the lower lumbar spine. Multilevel disc desiccation i s seen. Rudimentary disc is present at S1-S2 and S2-S3. Conus medullaris is unremarkable terminating at T12. No suspicious osseous lesion is seen within the lumbar spine. No abnormal enhancement of the lumbar spine after administration of contrast. L1-L2: There is a broad-based disc bulge resulting in mild bilateral neural foraminal narrowing witho ut spinal canal stenosis. Minimal ligamentum flavum buckling is seen. L2-L3: There is a broad-based disc bulge, ligamentum flavum buckling, and facet arthropathy resulting in mild spinal canal stenosis and mild bilateral neural foraminal narrowing, left greater than right given the left eccentric disc bulge. L3-L4: There is a central disc herniation, ligamentum flavum buckling and facet arthropathy that all contribute to moderate spinal canal stenosis and mild to moderate bilateral neural foraminal narrowin g. L4-L5: There is a left eccentric disc bulge, facet arthropathy, and ligamentum flavum buckling creati ng mild right and moderate left neural foraminal narrowing as well as mild spinal canal stenosis. The re is a central annular tear seen. L5-S1: There is a left eccentric disc bulge creating moderate left neural foraminal narrowing, modera te right neural foraminal narrowing, and mild spinal canal stenosis and comminution with ligamentum f lavum buckling and facet arthropathy. IMPRESSION: Both examinations are limited given patient motion throughout the exams. 1. No MR evidence of metastasis within the lumbar spine or brain. No suspicious enhancement on either exam. 2. Mild burden nonspecific white matter change, most commonly on the basis of chronic microangiopathy . Punctate old lacunar infarct of the right lentiform nucleus is also seen. 3. Central disc herniation L3-L4 contributing to moderate spinal canal stenosis in combination with f acet arthropathy and ligamentum flavum buckling. 4. Moderate multilevel degenerative disc disease of the lumbar spine creating variable degrees of stephanie ral foraminal narrowing as detailed above. 5. Narrowing of the cavernous and supraclinoid portions of the internal carotid arteries, likely from atheromatous plaquing. 6. Small amount of fluid within the right mastoid air cells. Correlate with point tenderness to exclu de mastoiditis.
--- NOTE | 2019-05-11 14:10 | P.PN ---
Subjective Progress Note Date: 05/11/19 Principal diagnosis: neurological deficit, Hx colon cancer, on chemotherapy/EGFR inhibitor In f/u today pt has c/o fatigue, she does walk to the bathroom but is tired when she gets escalona to bed. She states her home is small and she has lots of chairs to stop and rest in. Her mouth is mildly irritated but, she is able to tolerate oral intake including liquids and some soft foods, no sore throat, difficulty in breathing, nausea, abd pain. Objective - Vital Signs Vital signs: Vital Signs Temp 98.5 F 05/11/19 12:00 Pulse 92 05/11/19 13:25 Resp 16 05/11/19 13:25 BP 117/70 05/11/19 12:00 Pulse Ox 94 L 05/11/19 12:00 Intake & Output 05/10/19 05/11/19 05/11/19 18:59 06:59 18:59 Intake Total 960 120 Output Total 400 Balance 960 -400 120 Weight 50 kg 50 kg Intake: Oral 960 120 Output: Urine 400 Other: # Voids 2 0 # Bowel Movements 1 - Exam Well-developed, adequately nourished, thinly built female laying in bed, no acute distress, alert and oriented 4, respirations even and unlabored, no swelling in the lower extremities - Labs CBC & Chem 7: 05/11/19 05:20 05/11/19 05:20 Labs: Abnormal Lab Results - Last 24 Hours (Table) 05/11/19 05/11/19 Range/Units 05:20 05:20 RBC 3.21 L (3.80-5.40) m/uL Hgb 10.9 L (11.4-16.0) gm/dL Hct 31.9 L (34.0-46.0) % Plt Count 90 L (150-450) k/uL Lymphocytes # 0.8 L (1.0-4.8) k/uL BUN 5 L (7-17) mg/dL AST 55 H (14-36) U/L Albumin 3.4 L (3.5-5.0) g/dL Microbiology - Last 24 Hours (Table) 05/06/19 15:18 Blood Culture - Preliminary Blood No Growth after 96 hours Assessment and Plan (1) Cancer of sigmoid colon Narrative/Plan: Pt recently started new regimen, s/p 2 cycles. Due to her presenting symptoms CT head performed, no evidence to suggest metastatic disease or CVA. Neuro symptoms are further being worked up with pending MRI of head and T/L spine. She is due for cycle 3 of treatment tomorrow. She will keep that appointment, be evaluated by the RNs, and her case discussed with Primary Oncologist prior to proceeding with treatment. Patient verbalized understanding the plan Current Visit: Yes Status: Chronic Priority: High Code(s): C18.7 - MALIGNANT NEOPLASM OF SIGMOID COLON SNOMED Code(s): 151309258 (2) Neutropenia Narrative/Plan: WBC and ANC recovered, discontinue you G-CSF today. G-CSF will be added to patient's chemotherapy regimen. Current Visit: Yes Status: Acute Priority: High Code(s): D70.9 - NEUTROPENIA, UNSPECIFIED SNOMED Code(s): 815095662
--- NOTE | 2019-05-11 14:11 | P.DS ---
Providers Date of admission: 05/10/19 16:06 Expected date of discharge: 05/11/19 Attending physician: Bailey Mart Consults: 05/06/19 18:18 Consult Physician Routine Consulting Provider: Eliane Lowry Consult Reason/Comments: CVA Do you want consulting provider notified?: Yes 05/07/19 09:50 Consult Physician Routine Consulting Provider: Chris Chowdhury Consult Reason/Comments: established patient known abdominal wall carcinoma Do you want consulting provider notified?: Yes Primary care physician: Bailey Barron [facility] Hospital Course: Discharge diagnosis 1. Lower extremity weakness and slurred speech. Neurology services have been consulted. Head CT completed showing degenerative change with the greater frontal lobe component. Carotid Doppler completed showing antegrade flow in the vertebral arteries. There is bilateral plaque formation. Images and measurements suggest 30-40% stenosis in both internal carotids. MRI of the brain and spine completed and reviewed per neurology services. Per neurology showing no evidence of acute stroke MRI of the lumbar spine also showing no evidence of metastasis. Patient has been cleared for discharge from neurology standpoint. 2. Cancer of the sigmoid colon. Patient is currently receiving chemotherapy. Follows with oncology services. Oncology services have been consulted. Patient has follow-up appointment with oncology services tomorrow 3. Neutropenic. White blood cell 1.3. Secondary to chemotherapy oncology service is consulted 4. History of COPD. No exacerbation at this time 5. History of rheumatoid arthritis. 6. History of seizure disorder 7. History of ex-smoker 8. Elevated lipase 818. Patient denies any nausea vomiting or diarrhea. Patient denies any abdominal pain repeat levels have been ordered. Lipase is trending down 9. Thrombocytopenia secondary to chemotherapy. 10. Peripheral neuropathy. Gabapentin has been increased. Patient advised to follow-up closely with PCP Hospital course This is a 73-year-old female patient who presented with complaints of increased weakness to lower right extremity and intermittent neuro symptoms over the past 2 weeks. Patient reports symptoms started approximately 2 weeks ago in which she felt that her right leg with heavy. Patient also reports that she's had numbness to her right upper wrist area along with her left lower arm. Patient reports also the feeling of slurred speech that intermittently has occurred also. Patient reports the symptoms last just a few minutes and then subside. Patient does have a past medical history of colon cancer in which she currently follows with oncology services and receiving chemotherapy. Patient reports her next chemo is due 05/11/2019 and plans are for her to receive 6 months of chemo ending in September. Additional medical history includes asthma, COPD, DVT, I disorder, liver disease, pneumonia, respiratory arthritis, seizure disorder and ex-smoker. Upon exam neuro assessment is within normal limits no signs of facial droopsigns of extremity weakness. Head CT completed showing degenerative change with a greater frontal lobe component. Chest x-ray completed showing no acute process. At this time patient is resting comfortably in bed. Patient denies chest pain or shortness of breath. Patient denies nausea vomiting or diarrhea. Patient denies any urinary burning or frequency. On 05/08/2019 patient was seen and examined on the medical floor she is alert and oriented 3 in no apparent distress, she is complaining of muscle cramping and restless leg syndrome, she is complaining of numbness in her right leg, otherwise she denies any complaints at this time there is no fever or chills no headache or dizziness no chest pain no shortness of breath no cough no nausea or vomiting no abdominal pain no diarrhea and no urinary symptoms On 05/09/2019 patient is alert and oriented 3 she is feeling well and denies any complaints at this time there is no fever or chills no headache or dizziness no chest pain no shortness of breath no cough no nausea or vomiting no abdominal pain no diarrhea and no urinary symptoms is still complaining of muscle cramping in her legs and numbness in the right lower extremity, we are awaiting MRI of the brain and and spine tomorrow. On 05/10/2019 patient to undergo MRI today. Patient's alert and oriented 3. Patient is still complaining of some tingling to lower extremity. Patient denies chest pain or shortness of breath. Patient denies nausea vomiting or diarrhea. Patient denies any urinary burning or frequency. Patient has been in normal sinus rhythm per telemetry On 05/11/2019 patient's alert and oriented 3. Patient underwent MRI of the head and spine today. Results reviewed per neurology services showing no evidence of acute stroke or evidence of metastasis. Patient has been cleared for discharge from neurology standpoint. Discussed case with oncology. Patient will follow up with oncology services tomorrow for further treatment for cancer. Neurontin has been increased due to peripheral neuropathy. Patient was to follow-up closely with ALLERGY services and PCP for further management. At this time patient denies chest pain or shortness breath. Patient denies nausea vomiting or diarrhea. Patient denies any urinary burning or frequency I performed an examination of the patient and discussed their management with the Nurse Practitioner. I have reviewed the Nurse Practitioner's notes and agree with the documented findings and plan of care Patient Condition at Discharge: Stable Plan - Discharge Summary Discharge Rx Participant: No New Discharge Prescriptions: New Nystatin 100,000 Unit/ml Susp [Mycostatin Oral Susp] 500,000 unit PO QID 7 Days #28 cup Gabapentin [Neurontin] 600 mg PO TID 3 Days #18 cap Continue Omeprazole [PriLOSEC] 20 mg PO DAILY Nicotine 21Mg/24Hr Patch [Habitrol] 1 patch TRANSDERM DAILY #12 patch Albuterol Inhaler [Ventolin Hfa Inhaler] 1 - 2 puff INHALATION RT-Q6H PRN PRN Reason: Shortness Of Breath Ergocalciferol (Vitamin D2) [Vitamin D2] 50,000 unit PO SA Albuterol Nebulized [Ventolin Nebulized] 2.5 mg INHALATION Q6H PRN PRN Reason: Dyspnea Ondansetron [Zofran] 4 mg PO Q8HR PRN PRN Reason: Nausea Ipratropium/Albuterol Sulfate [Combivent Respimat Inhaler] 1 puff INHALATION RT-QID PRN PRN Reason: Shortness Of Breath Doxycycline Hyclate [Vibramycin] 100 mg PO BID HYDROcodone/APAP 5-325MG [[place] 5-325] 1 tab PO Q6HR PRN PRN Reason: Pain Discontinued Gabapentin [Neurontin] 400 mg PO TID Discharge Medication List Omeprazole [PriLOSEC] 20 mg PO DAILY 05/06/14 [History] Nicotine 21Mg/24Hr Patch [Habitrol] 1 patch TRANSDERM DAILY #12 patch 05/13/17 [Rx] Albuterol Inhaler [Ventolin Hfa Inhaler] 1 - 2 puff INHALATION RT-Q6H PRN 02/10/18 [History] Ergocalciferol (Vitamin D2) [Vitamin D2] 50,000 unit PO SA 03/23/18 [History] Albuterol Nebulized [Ventolin Nebulized] 2.5 mg INHALATION Q6H PRN 02/15/19 [History] Doxycycline Hyclate [Vibramycin] 100 mg PO BID 05/06/19 [History] HYDROcodone/APAP 5-325MG [[place] 5-325] 1 tab PO Q6HR PRN 05/06/19 [History] Ipratropium/Albuterol Sulfate [Combivent Respimat Inhaler] 1 puff INHALATION RT- QID PRN 05/06/19 [History] Ondansetron [Zofran] 4 mg PO Q8HR PRN 05/06/19 [History] Gabapentin [Neurontin] 600 mg PO TID 3 Days #18 cap 05/11/19 [Rx] Nystatin 100,000 Unit/ml Susp [Mycostatin Oral Susp] 500,000 unit PO QID 7 Days #28 cup 05/11/19 [Rx] Follow up Appointment(s)/Referral(s): Bailey Mart MD [Primary Care Provider] - 1-2 days Chris Chowdhury MD [Family Provider] - 1-2 Days (This is chemo appt. Pt will be evaluated by RNs before treatment) Activity/Diet/Wound Care/Special Instructions: Activity as tolerated Diet heart healthy Discharge Disposition: HOME SELF-CARE
--- NOTE | 2019-05-14 15:13 | CDI ---
Documentation Clarification Form Date: 05/14/19 From: Desiree Soler Phone: If questions call Stefany Melendez @ [phone], Hours-8:30 am & 5 pm M- F Admit Date: 05/10/2019 4:06:00 PM Patient Name: Carla Fink Visit Number: [id number] Discharge Date: 05/11/2019 4:10:00 PM ATTENTION: The Clinical Documentation Specialists (CDI) and [facility] Coding Staff appreciate your assistance in clarifying documentation. Please respond to the clarification below the line at the bottom and electronically sign. The CDI & [facility] Coding staff will review the response and follow-up if needed. Please note: Queries are made part of the Legal Health Record. If you have any questions, please contact the author of this message via ITS. Dr. Bailey Mart Cachectic has been documented in Neuro consult and PNs 05/10 & 05/11 History/Risk Factors: colon ca w mets to abdominal wall undergoing chemo, drug- induced polyneuropathy Clinical Indicators: Elderly female, cachectic w BMI 16.8, appetite poor Current BMI: 16.8 Weight Loss: Per dietary consult: <50% estimated caloric needs associated with side effects of chemo, 9% involuntary weight loss in past 2 months or less Supplements: Ensure Enlive TID Labs: Albumin- 3.8, 3.2, 3.3, 3.2, 3.4 T Protein - 6.9, 6.0, 6.2, 6.1, 6.4 In your professional opinion, can you please clarify if these findings signify one of the following conditions? Mild Protein-Calorie Malnutrition Moderate Protein-Calorie Malnutrition Severe Protein-Calorie Malnutrition Malnutrition, unspecified Other condition, please specify Unable to determine moderate protein calorie malnutrition MTDD
--- NOTE | 2019-05-21 14:50 | CDI ---
Documentation Clarification Form Date: 05/21/19 From: Desiree Soler Phone: If you have a question about this query, please contact Stefany Melendez, Web Design Specialist at [phone] between 8am and 5pm. Admit Date: 05/10/19 Discharge Date: 05/11/19 Patient Name: Carla Fink Visit Number: [id number] ATTENTION: The Clinical Documentation Specialists (CDI) and [facility] Coding Staff appreciate your assistance in clarifying documentation. Please respond to the clarification below the line at the bottom and electronically sign. The CDI & [facility] Coding staff will review the response and follow-up if needed. Please note: Queries are made part of the Legal Health Record. If you have any questions, please contact the author of this message via ITS. Dear Dr Bailey Mart. 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 Mets to brain and CVA ruled out by Dr Lowry. History/Risk Factors: malnutrition,met cancer, neutropenia due to chemo, Clinical Indicators: Presented with complaints of increased weakness to RLE and intermittent neuro symptoms over the past 2 weeks. Next chemo due 05/11. 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
== END 2019-05-11 16:10 | disposition home or self-care (01) | DRG 74 ==
LOC: EC 11:27 → INTOOBSV 18:14 → 3SCARD 18:14 → OBSVTOIN 05-10 16:06
PROVIDERS: ADMIT Internal Medicine; ATTEND Internal Medicine
DX: G62.0 Drug-induced polyneuropathy (principal); E44.0 Moderate protein-calorie malnutrition; C79.89 Secondary malignant neoplasm of other specified sites; R64 Cachexia; Z68.1 Body mass index [BMI] 19.9 or less, adult; C18.7 Malignant neoplasm of sigmoid colon; D70.1 Agranulocytosis secondary to cancer chemotherapy; D69.59 Other secondary thrombocytopenia; I65.23 Occlusion and stenosis of bilateral carotid arteries; G40.909 Epilepsy, unspecified, not intractable, without status epilepticus; J44.9 Chronic obstructive pulmonary disease, unspecified; M06.9 Rheumatoid arthritis, unspecified; D75.89 Other specified diseases of blood and blood-forming organs; T45.1X5A Adverse effect of antineoplastic and immunosuppressive drugs, initial encounter; R47.81 Slurred speech; G31.9 Degenerative disease of nervous system, unspecified; R40.2362 Coma scale, best motor response, obeys commands, at arrival to emergency department; R40.2142 Coma scale, eyes open, spontaneous, at arrival to emergency department; R40.2252 Coma scale, best verbal response, oriented, at arrival to emergency department; G25.81 Restless legs syndrome; B19.20 Unspecified viral hepatitis C without hepatic coma; K76.9 Liver disease, unspecified; H40.9 Unspecified glaucoma; Z79.899 Other long term (current) drug therapy; Z71.3 Dietary counseling and surveillance; Z92.3 Personal history of irradiation; Z90.49 Acquired absence of other specified parts of digestive tract; Z86.718 Personal history of other venous thrombosis and embolism; Z87.01 Personal history of pneumonia (recurrent); Z86.72 Personal history of thrombophlebitis; Z98.890 Other specified postprocedural states; Z87.442 Personal history of urinary calculi; Z87.891 Personal history of nicotine dependence; Z88.0 Allergy status to penicillin; Z82.49 Family history of ischemic heart disease and other diseases of the circulatory system; Z83.3 Family history of diabetes mellitus; Z80.0 Family history of malignant neoplasm of digestive organs; Z80.7 Family history of other malignant neoplasms of lymphoid, hematopoietic and related tissues; Z83.71 Family history of colonic polyps
CPT/HCPCS: 36415; 70450; 70553; 71046; 72157; 72158; 80048; 80053; 80061; 80076; 81003; 82150; 82378; 82607; 82746; 83036; 83605; 83690; 83735; 84443; 84484; 85025; 85027; 87040; 87502; 93005; 93306; 93880; 94640; 94760; 96360; 99285

== ENCOUNTER 2019-05-29 12:02 | Inpatient (IN) | payer MEDICARE, OTHER ==
[2019-05-29] MEDS ORDERED: SODIUM CHLORIDE 0.9% 1,000 ML IV STA (12:36)
[2019-05-29] MEDS ORDERED: SODIUM CHLORIDE 0.9% 2,000 ML IV STA (12:36)
[2019-05-29] MEDS ORDERED: ONDANSETRON 4 MG/2 ML VIAL IVP STA ×2 (12:36→15:47)
[2019-05-29] MEDS ORDERED: MORPHINE SULFATE 4 MG/ML SYRINGE IVP STA (12:37)
--- NOTE | 2019-05-29 12:38 | ED ---
Nausea/Vomiting/Diarrhea HPI - General Chief complaint: Nausea/Vomiting/Diarrhea Stated complaint: N/V/D Time Seen by Provider: 05/29/19 12:21 Source: patient, RN notes reviewed, old records reviewed Mode of arrival: EMS - History of Present Illness Initial comments: Patient is a 73-year-old female with a history of abdominal wall cancer. She presents today for nausea and vomiting, diarrhea. She reports that she's been having some nausea and vomiting since her last admission. She had her last chemotherapy treatment on Friday of this week, and did receive her Neulasta in jection on and her chemo pack was removed at that time. Patient states that she was feeling generally. Well and weak today due to multiple episodes of dry heaving and the diarrhea. She reports no visible blood within her stool or emesis. Patient states that she has had persistent abdominal pain, and chronic headache. This is all been stable since her last admission. Patient states t hat she is not short of breath or coughing. - Related Data Home Medications Medication Instructions Recorded Confirmed Omeprazole [PriLOSEC] 20 mg PO DAILY 05/06/14 05/06/19 Albuterol Inhaler [Ventolin Hfa 1 - 2 puff INHALATION RT-Q6H PRN 02/10/18 05/06/19 Inhaler] Ergocalciferol (Vitamin D2) 50,000 unit PO SA 03/23/18 05/06/19 [Vitamin D2] Albuterol Nebulized [Ventolin 2.5 mg INHALATION Q6H PRN 02/15/19 05/06/19 Nebulized] Doxycycline Hyclate [Vibramycin] 100 mg PO BID 05/06/19 05/06/19 HYDROcodone/APAP 5-325MG [[place] 1 tab PO Q6HR PRN 05/06/19 05/06/19 5-325] Ipratropium/Albuterol Sulfate 1 puff INHALATION RT-QID PRN 05/06/19 05/06/19 [Combivent Respimat Inhaler] Ondansetron [Zofran] 4 mg PO Q8HR PRN 05/06/19 05/06/19 Previous Rx's Medication Instructions Recorded Nicotine 21Mg/24Hr Patch [Habitrol] 1 patch TRANSDERM DAILY #12 patch 05/13/17 Gabapentin [Neurontin] 600 mg PO TID 3 Days #18 cap 05/11/19 Nystatin 100,000 Unit/ml Susp 500,000 unit PO QID 7 Days #28 cup 05/11/19 [Mycostatin Oral Susp] Allergies Allergy/AdvReac Type Severity Reaction Status Date / Time Penicillins Allergy Severe Anaphylaxis Verified 05/06/19 13:00 marijuana Allergy Unknown Verified 05/06/19 13:00 Review of Systems ROS Statement: Those systems with pertinent positive or pertinent negative responses have been documented in the HPI. ROS Other: All systems not noted in ROS Statement are negative. Past Medical History Past Medical History: Asthma, Cancer, COPD, Deep Vein Thrombosis (DVT), Eye Disorder, Liver Disease, Pneumonia, Rheumatoid Arthritis (RA), Seizure Disorder Additional Past Medical History / Comment(s): HX PLEURISY CHILD; HAS "COMPROMISED LUNGS," BRONCHITIS AND PNEUMONIA NUMEROUS TIMES. HX R PNEUMOTHORAX 30 YRS AGO. NUMEROUS FX, TEETH KNOCKED OUt, HX RLS. HX OF SEIZURES, HX Hepatitis C at 16 yrs of age. RT eye Glaucoma. thrombophlebitis x2, CA COLON- CURRENT History of Any Multi-Drug Resistant Organisms: None Reported Past Surgical History: Bowel Resection, Tonsillectomy Additional Past Surgical History / Comment(s): Colonoscopy. KIDNEY STONE REMOVAL. bowel surgery due to CA Past Anesthesia/Blood Transfusion Reactions: No Reported Reaction Past Psychological History: No Psychological Hx Reported Smoking Status: Former smoker Past Alcohol Use History: None Reported Past Drug Use History: None Reported - Past Family History Father Family Medical History: No Reported History Mother Family Medical History: Cancer, Coronary Artery Disease (CAD), Diabetes Mellitus Additional Family Medical History / Comment(s): Colon cancer Daughter(s) Family Medical History: Cancer Additional Family Medical History / Comment(s): Hodgkins General Exam - General Exam Comments Initial Comments: 73-year-old female. Patient has some retching while in the room. Patient is generally weak and frail. General appearance: alert, in no apparent distress Head exam: Present: atraumatic, normocephalic, normal inspection Eye exam: Present: normal appearance, PERRL, EOMI. Absent: scleral icterus, conjunctival injection, periorbital swelling ENT exam: Present: normal exam, mucous membranes moist Neck exam: Present: normal inspection. Absent: tenderness, meningismus, lymphadenopathy Respiratory exam: Present: normal lung sounds bilaterally, other (Chest wall with evidence of chemo port.). Absent: respiratory distress, wheezes, rales, rhonchi, stridor Cardiovascular Exam: Present: regular rate, normal rhythm, normal heart sounds. Absent: systolic murmur, diastolic murmur, rubs, gallop, clicks GI/Abdominal exam: Present: soft, normal bowel sounds. Absent: distended, guarding, rebound, rigid Extremities exam: Present: normal inspection, full ROM, normal capillary refill. Absent: tenderness, pedal edema, joint swelling, calf tenderness Back exam: Present: normal inspection Neurological exam: Present: alert, oriented X3, CN II-XII intact Psychiatric exam: Present: normal affect, normal mood Skin exam: Present: warm, dry, intact, normal color. Absent: rash Course Vital Signs 05/29/19 05/29/19 05/29/19 12:09 12:30 13:00 Temperature 98.4 F Pulse Rate 107 H 98 106 H Respiratory 18 12 24 Rate Blood Pressure 131/108 131/108 144/95 O2 Sat by Pulse 97 96 97 Oximetry 05/29/19 05/29/19 05/29/19 13:30 14:00 14:30 Temperature Pulse Rate 101 H 92 93 Respiratory 12 16 17 Rate Blood Pressure 154/97 137/109 150/84 O2 Sat by Pulse 98 98 100 Oximetry Medical Decision Making - Medical Decision Making Patient is a 73-year-old female. She presents today for evaluation for her pers istent nausea and vomiting for the past 2 weeks. She states it became worse last night and she could not get any sleep. She complains of generalized aches and weakness. She clinically appears dehydrated dry mouth. She had her chemotherapy treatment on Friday, had Neulasta shot on . Lab work was reviewed. She does have evidence of leukocytosis but most likely related related to her recent Neulasta injection. She has no fever at this time. Patient's chemistry panels were reviewed. She has low potassium of 3.0, magnesium was low at 1.3. She was given IV replacement of this. She is given multiple rounds of nausea medications but continues to complain of some nausea. Chest x-ray was normal. KUB shows cannot rule out 6 pronator talk to us. Her urinalysis shows no blood. I discussed the Patient doesn't appear to present with flank pain or kidney stone pain. Patient's amylase and lipase are elevated. They were in an elevator on her last admission, but did trend down at that time. No known reason for why they were elevated then. I discussed the case with Dr. Castrejon. Recommended admission for magnesium and potassium replacement fluids. We will consult patient's onc ologist Dr. Russo and GI doctor Dr. Tomlinson. - Lab Data Result diagrams: 05/29/19 12:20 05/29/19 12:20 Lab Results 05/29/19 05/29/19 05/29/19 Range/Units 12:20 12:20 12:20 WBC 17.0 H (3.8-10.6) k/uL RBC 3.95 (3.80-5.40) m/uL Hgb 13.7 (11.4-16.0) gm/dL Hct 39.6 (34.0-46.0) % MCV 100.3 H (80.0-100.0) fL MCH 34.6 (25.0-35.0) pg MCHC 34.5 (31.0-37.0) g/dL RDW 15.1 (11.5-15.5) % Plt Count 146 L D (150-450) k/uL Neutrophils % 93 % Lymphocytes % 5 % Monocytes % 2 % Eosinophils % 0 % Basophils % 0 % Neutrophils # 15.8 H (1.3-7.7) k/uL Lymphocytes # 0.8 L (1.0-4.8) k/uL Monocytes # 0.3 (0-1.0) k/uL Eosinophils # 0.0 (0-0.7) k/uL Basophils # 0.0 (0-0.2) k/uL Macrocytosis Slight Sodium 142 (137-145) mmol/L Potassium 3.0 L (3.5-5.1) mmol/L Chloride 106 (98-107) mmol/L Carbon Dioxide 27 (22-30) mmol/L Anion Gap 9 mmol/L BUN 14 (7-17) mg/dL Creatinine 0.56 (0.52-1.04) mg/dL Est GFR (CKD-EPI)AfAm >90 (>60 ml/min/1.73 sqM) Est GFR (CKD-EPI)NonAf >90 (>60 ml/min/1.73 sqM) Glucose 108 H (74-99) mg/dL Plasma Lactic Acid Mauri 2.0 (0.7-2.0) mmol/L Calcium 9.2 (8.4-10.2) mg/dL Magnesium (1.6-2.3) mg/dL Total Bilirubin 0.8 (0.2-1.3) mg/dL AST 57 H (14-36) U/L ALT 35 (9-52) U/L Alkaline Phosphatase 108 (38-126) U/L Total Protein 6.9 (6.3-8.2) g/dL Albumin 3.5 (3.5-5.0) g/dL Amylase 116 H (30-110) U/L Lipase 736 H (23-300) U/L Urine Color Urine Appearance (Clear) Urine pH (5.0-8.0) Ur Specific [place] (1.001-1.035) Urine Protein (Negative) Urine Glucose (UA) (Negative) Urine Ketones (Negative) Urine Blood (Negative) Urine Nitrite (Negative) Urine Bilirubin (Negative) Urine Urobilinogen (<2.0) mg/dL Ur Leukocyte Esterase (Negative) Urine RBC (0-5) /hpf Urine WBC (0-5) /hpf Ur Squamous Epith Cells (0-4) /hpf Urine Mucus (None) /hpf 05/29/19 05/29/19 Range/Units 12:20 14:55 WBC (3.8-10.6) k/uL RBC (3.80-5.40) m/uL Hgb (11.4-16.0) gm/dL Hct (34.0-46.0) % MCV (80.0-100.0) fL MCH (25.0-35.0) pg MCHC (31.0-37.0) g/dL RDW (11.5-15.5) % Plt Count (150-450) k/uL Neutrophils % % Lymphocytes % % Monocytes % % Eosinophils % % Basophils % % Neutrophils # (1.3-7.7) k/uL Lymphocytes # (1.0-4.8) k/uL Monocytes # (0-1.0) k/uL Eosinophils # (0-0.7) k/uL Basophils # (0-0.2) k/uL Macrocytosis Sodium (137-145) mmol/L Potassium (3.5-5.1) mmol/L Chloride (98-107) mmol/L Carbon Dioxide (22-30) mmol/L Anion Gap mmol/L BUN (7-17) mg/dL Creatinine (0.52-1.04) mg/dL Est GFR (CKD-EPI)AfAm (>60 ml/min/1.73 sqM) Est GFR (CKD-EPI)NonAf (>60 ml/min/1.73 sqM) Glucose (74-99) mg/dL Plasma Lactic Acid Mauri (0.7-2.0) mmol/L Calcium (8.4-10.2) mg/dL Magnesium 1.3 L (1.6-2.3) mg/dL Total Bilirubin (0.2-1.3) mg/dL AST (14-36) U/L ALT (9-52) U/L Alkaline Phosphatase (38-126) U/L Total Protein (6.3-8.2) g/dL Albumin (3.5-5.0) g/dL Amylase (30-110) U/L Lipase (23-300) U/L Urine Color Yellow Urine Appearance Clear (Clear) Urine pH 6.5 (5.0-8.0) Ur Specific [place] 1.015 (1.001-1.035) Urine Protein 1+ H (Negative) Urine Glucose (UA) Negative (Negative) Urine Ketones Negative (Negative) Urine Blood Negative (Negative) Urine Nitrite Negative (Negative) Urine Bilirubin Negative (Negative) Urine Urobilinogen <2.0 (<2.0) mg/dL Ur Leukocyte Esterase Negative (Negative) Urine RBC <1 (0-5) /hpf Urine WBC 4 (0-5) /hpf Ur Squamous Epith Cells 1 (0-4) /hpf Urine Mucus Rare H (None) /hpf - Radiology Data Radiology results: report reviewed Cannot exclude a 6 mm left ureteral calculus. No intrathoracic disease. Correlate for COPD. Disposition Clinical Impression: Elevated lipase, Nausea & vomiting, Chemotherapy induced nausea and vomiting, Hypomagnesemia, Hypokalemia Disposition: ADMITTED IP TO THIS HOSP Condition: Stable Is patient prescribed a controlled substance at d/c from ED?: No Referrals: Bailey Mart MD [Primary Care Provider] - 1-2 days Time of Disposition: 15:50
[2019-05-29 12:55] LABS: Basophils % (A) 0 %; Eosinophils % (A) 0 %; HCT 39.6 % (34.0-46.0); HGB 13.7 gm/dL (11.4-16.0); Lymphocytes # (A) 0.8 k/uL (1.0-4.8); Lymphocytes % (A) 5 %; MCH 34.6 pg (25.0-35.0); MCHC 34.5 g/dL (31.0-37.0); MCV 100.3 fL (80.0-100.0); Macrocytosis Slight; Mean Platelet Volume 6.6; Monocytes # (A) 0.3 k/uL (0-1.0); Monocytes % (A) 2 %; Neutrophils # (A) 15.8 k/uL (1.3-7.7); Neutrophils % (A) 93 %; Platelet Count 146 k/uL (150-450); RBC 3.95 m/uL (3.80-5.40); RDW 15.1 % (11.5-15.5)
[2019-05-29 13:02] LABS: ALT 35 U/L (9-52); AST 57 U/L (14-36); African American GFR (CKD) >90 (>60 ml/min/1.73 sqM); Albumin 3.5 g/dL (3.5-5.0); Alkaline Phosphatase 108 U/L (38-126); Amylase 116 U/L (30-110); Anion Gap 9 mmol/L; Blood Urea Nitrogen 14 mg/dL (7-17); Calcium 9.2 mg/dL (8.4-10.2); Carbon Dioxide 27 mmol/L (22-30); Chloride 106 mmol/L (98-107); Glucose 108 mg/dL (74-99); Sodium 142 mmol/L (137-145); Total Bilirubin 0.8 mg/dL (0.2-1.3); Total Protein 6.9 g/dL (6.3-8.2)
--- NOTE | 2019-05-29 13:16 | XR ---
EXAMINATION TYPE: XR KUB , 2 VIEWS DATE OF EXAM ORDERED: 05/29/2019 HISTORY: pain. COMPARISON: None. FINDINGS: Lung bases are clear. Within the abdomen, the abdominal gas pattern is within normal limits. There is no evidence of obstru ction or free air. There is a slightly irregular, 6.1 mm calcific density overlying the expected cour se of the left mid ureter. There IMPRESSION: I CANNOT EXCLUDE A 6 MM LEFT URETERIC CALCULUS.
--- NOTE | 2019-05-29 13:17 | XR ---
EXAMINATION TYPE: XR chest 2V DATE OF EXAM: 05/29/2019 HISTORY: pain. REFERENCE: Previous study dated 05/06/2019. . FINDINGS: There is a Mediport in place via a right internal jugular approach. Its tip is in the super ior vena cava. Lung volumes are prominent space are clear. The heart is not enlarged. IMPRESSION: 1. NO ACTIVE INTRATHORACIC DISEASE. 2. PLEASE CORRELATE FOR COPD.
[2019-05-29] MEDS ORDERED: POTASSIUM CHLORIDE 10 MEQ in WATER FOR INJECTION 1 100ML.BAG IVPB STA (15:00)
[2019-05-29] MEDS ORDERED: METOCLOPRAMIDE 5 MG/ML 2 ML VIAL IVP STA (15:18)
[2019-05-29 15:20] LABS: Appearance,Urine Clear (Clear); Bilirubin,Urine Negative (Negative); Blood,Urine Negative (Negative); Color,Urine Yellow; Glucose,Urine (UA) Negative (Negative); Ketones,Urine Negative (Negative); Leukocyte Esterase,Urine Negative (Negative); Mucus,Urine Rare /hpf; Nitrite,Urine Negative (Negative); PH, Urine 6.5 (5.0-8.0); Protein,Urine 1+ (Negative); RBC,Urine <1 /hpf (0-5); Specific Gravity,Urine 1.015 (1.001-1.035); Squamous Epithelial Cell,Urine 1 /hpf (0-4); Urobilinogen,Urine <2.0 mg/dL (<2.0); WBC,Urine 4 /hpf (0-5)
[2019-05-29] MEDS ORDERED: diphenhydrAMINE 50 MG/ML 1 ML VIAL IVP STA (15:47)
[2019-05-29] MEDS ORDERED: LORazepam 2 MG/ML INJ IV STA (15:47)
[2019-05-29] MEDS ORDERED: ONDANSETRON 4 MG/2 ML VIAL IVP PRN (15:50)
[2019-05-29] MEDS ORDERED: IBUPROFEN 400 MG TAB PO PRN (15:50)
[2019-05-29] MEDS ORDERED: HYDROmorphone 1 MG/ML 1 ML SYRINGE IVP PRN (15:50)
[2019-05-29] MEDS ORDERED: HYDROmorphone 0.5 MG/0.5 ML SYRINGE IVP PRN (15:50)
[2019-05-29] MEDS ORDERED: NALOXONE 0.4 MG/ML 1 ML VIAL IV PRN (15:50)
[2019-05-29] MEDS ORDERED: TEMAZEPAM 15 MG CAP PO PRN (15:50)
[2019-05-29] MEDS ORDERED: MAGNESIUM SULFATE-D5W PMX 1 GM in DEXTROSE/WATER 1 100ML.BAG IVPB ONE (16:20)
[2019-05-29] MEDS: SODIUM CHLORIDE 0.9% 1,000 ML IV SCH (16:49)
[2019-05-29 18:06] LABS: Glucose,Whole Blood 130 mg/dL (75-99)
[2019-05-29 19:54] LABS: Glucose,Whole Blood 99 mg/dL (75-99)
[2019-05-29] MEDS ORDERED: IPRATROPIUM-ALBUTEROL 3 ML NEB INHALATION PRN (22:05)
[2019-05-29] MEDS ORDERED: ERGOCALCIFEROL 50,000 UNIT CAP PO SCH (22:30)
[2019-05-30] MEDS: HYDROcodone/APAP 5-325MG 1 EACH TAB PO PRN ×3 (01:19→20:22)
[2019-05-30] MEDS: GABAPENTIN 400 MG CAP PO SCH ×4 (01:20→20:15)
[2019-05-30] MEDS: SODIUM CHLORIDE 0.9% 1,000 ML IV SCH ×2 (01:21→15:40)
[2019-05-30] MEDS ORDERED: Potassium Replacement Protocol 1 EACH MISC MISCELLANE PRN ×3 (06:01→15:48)
[2019-05-30] MEDS ORDERED: Magnesium Replacement Protocol 1 EACH MISC MISCELLANE PRN ×2 (06:02→12:09)
[2019-05-30 06:49] LABS: Glucose,Whole Blood 90 mg/dL (75-99)
[2019-05-30] MEDS ORDERED: PANTOPRAZOLE 40 MG/10 ML VIAL IV SCH (09:00)
[2019-05-30] MEDS ORDERED: PANTOPRAZOLE 40 MG TABLET PO SCH (09:00)
[2019-05-30] MEDS: NICOTINE 21MG/24HR PATCH TRANSDERM SCH (09:20)
[2019-05-30] MEDS: CHOLECALCIFEROL 1,000 UNIT TAB PO SCH (09:20)
[2019-05-30] MEDS: ALBUTEROL NEBULIZED 2.5 MG/3 ML INHALATION SCH ×4 (09:28→20:23)
[2019-05-30 10:54] LABS: Glucose,Whole Blood 106 mg/dL (75-99)
[2019-05-30 11:18] LABS: Magnesium 1.4 mg/dL (1.6-2.3)
[2019-05-30 11:35] LABS: HCT 33.2 % (34.0-46.0); HGB 10.9 gm/dL (11.4-16.0); MCH 33.8 pg (25.0-35.0); MCHC 32.9 g/dL (31.0-37.0); MCV 102.7 fL (80.0-100.0); Macrocytosis Slight; Mean Platelet Volume 6.8; RBC 3.23 m/uL (3.80-5.40); WBC 14.4 k/uL (3.8-10.6)
[2019-05-30 11:50] LABS: Band Neutrophils % 8 %; Hypochromasia (M) Present; Lymphocytes # (M) 1.73 k/uL (1.0-4.8); Monocytes # (M) 0.14 k/uL (0-1.0); Neutrophils % (M) 79 %; Nucleated Red Blood Cells 0 /100 WBC (0-0); Platelet Count 84 k/uL (150-450); Poikilocytosis (M) Present; Total Cells Counted 100
--- NOTE | 2019-05-30 12:21 | P.HPIM ---
History of Present Illness H&P Date: 05/30/19 This is a 73-year-old who presents with complaints of nausea and vomiting over the past few days. Patient reports that she received chemotherapy and pump removal last and since then has had increased nausea and vomiting patient reports that her oral intake has been low. Patient denies constipation or diarrhea. Patient denies fevers. Patient does have a known past medical history of abdominal wall cancer, asthma, COPD, DVT, eye disorder, liver disease, pneumonia, rheumatoid arthritis, seizure disorder and ex-smoker. KUB x-ray completed showing I cannot exclude a 6 mm left ureter calculus. Chest x- ray completed showing no active intrathoracic disease. correlate for COPD. Patient amylase and lipase elevated at 116 and 736. GI oncology services have been consulted. Potassium and magnesium replacement protocol. Anti-emetics ordered. Patient denies chest pain or shortness breath. Patient denies nausea vomiting or diarrhea. Patient denies any urinary burning or frequency Review of Systems Please refer to HPI otherwise unremarkable Past Medical History Past Medical History: Asthma, Cancer, COPD, Deep Vein Thrombosis (DVT), Eye Disorder, Liver Disease, Pneumonia, Rheumatoid Arthritis (RA), Seizure Disorder Additional Past Medical History / Comment(s): HX PLEURISY CHILD; HAS "COMPROMISED LUNGS," BRONCHITIS AND PNEUMONIA NUMEROUS TIMES. HX R PNEUMOTHORAX 30 YRS AGO. NUMEROUS FX, TEETH KNOCKED OUt, HX RLS. HX OF SEIZURES, HX Hepatitis C at 16 yrs of age. RT eye Glaucoma. thrombophlebitis x2, [place] COLON- CURRENT History of Any Multi-Drug Resistant Organisms: None Reported Past Surgical History: Bowel Resection, Tonsillectomy Additional Past Surgical History / Comment(s): Colonoscopy. KIDNEY STONE REMOVAL. bowel surgery due to CA Past Anesthesia/Blood Transfusion Reactions: No Reported Reaction Past Psychological History: No Psychological Hx Reported Additional Psychological History / Comment(s): VERY AGITATED & SHORT-TEMPERED, HOSTILE AT TIMES. Smoking Status: Former smoker Past Alcohol Use History: None Reported Additional Past Alcohol Use History / Comment(s): Has been smoking since 10 yrs old, trying to quit, down to 1-5 cigarettes some days. Quit October 2018 Past Drug Use History: None Reported Additional Drug Use History / Comment(s): LAST USED MARIJUANA A TEENAGER. - Past Family History Father Family Medical History: No Reported History Mother Family Medical History: Cancer, Coronary Artery Disease (CAD), Diabetes Mellitus Additional Family Medical History / Comment(s): Colon cancer Daughter(s) Family Medical History: Cancer Additional Family Medical History / Comment(s): Hodgkins Medications and Allergies Home Medications Medication Instructions Recorded Confirmed Type Omeprazole [PriLOSEC] 20 mg PO DAILY 05/06/14 05/29/19 History Nicotine 21Mg/24Hr Patch [Habitrol] 1 patch TRANSDERM DAILY #12 patch 05/13/17 05/29/19 Rx Albuterol Inhaler [Ventolin Hfa 1 - 2 puff INHALATION RT-Q6H PRN 02/10/18 05/29/19 History Inhaler] Ergocalciferol (Vitamin D2) 50,000 unit PO SA 03/23/18 05/29/19 History [Vitamin D2] Albuterol Nebulized [Ventolin 2.5 mg INHALATION RT-QID 02/15/19 05/29/19 History Nebulized] Doxycycline Hyclate [Vibramycin] 100 mg PO BID 05/06/19 05/29/19 History HYDROcodone/APAP 5-325MG [[place] 1 tab PO Q6HR PRN 05/06/19 05/29/19 History 5-325] Ipratropium/Albuterol Sulfate 1 puff INHALATION RT-QID PRN 05/06/19 05/29/19 History [Combivent Respimat Inhaler] Ondansetron [Zofran] 4 mg PO Q8HR PRN 05/06/19 05/29/19 History Nystatin 100,000 Unit/ml Susp 500,000 unit PO QID 7 Days #28 cup 05/11/19 05/29/19 Rx [Mycostatin Oral Susp] Cholecalciferol [Vitamin D3 (25 5,000 unit PO DAILY 05/29/19 05/29/19 History Mcg = 1000 Iu)] Allergies Allergy/AdvReac Type Severity Reaction Status Date / Time Penicillins Allergy Severe Swelling/Ra Verified 05/29/19 16:31 sh marijuana AdvReac seizures Verified 05/29/19 16:31 Physical Exam Vitals: Vital Signs Temp Pulse Pulse Resp BP BP Pulse Ox 05/30/19 11:42 97.7 F 96 18 159/78 98 05/30/19 09:41 80 05/30/19 09:28 84 05/30/19 08:00 87 16 05/30/19 04:25 97.9 F 87 16 126/75 97 05/29/19 21:29 98.4 F 95 16 131/73 96 05/29/19 17:56 97.9 F 108 H 16 117/70 95 05/29/19 17:15 98.3 F 114 H 18 126/64 98 05/29/19 14:30 93 17 150/84 100 05/29/19 14:00 92 16 137/109 98 05/29/19 13:30 101 H 12 154/97 98 Intake and Output 05/29/19 05/30/19 05/30/19 23:59 06:59 14:59 Other: Voiding Method Toilet # Voids Head normocephalic Neck supple Lungs clear to auscultation bilaterally no wheezing or crackles Heart regular rate and rhythm S1-S2, no rub or gallop Abdomen is soft nontender nondistended positive bowel sounds no hepatosplenomegaly Extremities no edema Neuro alert and orientated to 3 Results CBC & Chem 7: 05/30/19 10:50 05/30/19 10:50 Labs: Abnormal Lab Results - Last 24 Hours (Table) 05/29/19 05/29/19 05/29/19 Range/Units 12:20 14:55 18:05 WBC (3.8-10.6) k/uL RBC (3.80-5.40) m/uL Hgb (11.4-16.0) gm/dL Hct (34.0-46.0) % MCV (80.0-100.0) fL Plt Count (150-450) k/uL Neutrophils # (Manual) (1.3-7.7) k/uL Potassium (3.5-5.1) mmol/L POC Glucose (mg/dL) 130 H (75-99) mg/dL Magnesium 1.3 L (1.6-2.3) mg/dL Lipase (23-300) U/L Urine Protein 1+ H (Negative) Urine Mucus Rare H (None) /hpf 05/29/19 05/30/19 05/30/19 Range/Units 20:25 10:50 10:50 WBC 14.4 H (3.8-10.6) k/uL RBC 3.23 L (3.80-5.40) m/uL Hgb 10.9 L (11.4-16.0) gm/dL Hct 33.2 L (34.0-46.0) % MCV 102.7 H (80.0-100.0) fL Plt Count 84 L (150-450) k/uL Neutrophils # (Manual) 12.50 H (1.3-7.7) k/uL Potassium 3.2 L 3.0 L (3.5-5.1) mmol/L POC Glucose (mg/dL) (75-99) mg/dL Magnesium 1.4 L (1.6-2.3) mg/dL Lipase 657 H (23-300) U/L Urine Protein (Negative) Urine Mucus (None) /hpf 05/30/19 Range/Units 10:52 WBC (3.8-10.6) k/uL RBC (3.80-5.40) m/uL Hgb (11.4-16.0) gm/dL Hct (34.0-46.0) % MCV (80.0-100.0) fL Plt Count (150-450) k/uL Neutrophils # (Manual) (1.3-7.7) k/uL Potassium (3.5-5.1) mmol/L POC Glucose (mg/dL) 106 H (75-99) mg/dL Magnesium (1.6-2.3) mg/dL Lipase (23-300) U/L Urine Protein (Negative) Urine Mucus (None) /hpf Thrombosis Risk Factor Assmnt - Choose All That Apply Each Risk Factor Represents 2 Points: Age 61-74 years Thrombosis Risk Factor Assessment Total Risk Factor Score: 2 Thrombosis Risk Factor Assessment Level: Low Risk Assessment and Plan Assessment: 1. Acute pancreatitis. Amylase elevated at 116 lipase 736. Patient started clear liquid diet GI service is consulted. Discussed case with oncology services this could be secondary to patient's chemotherapy 2. Nausea and vomiting likely secondary to chemotherapy acute pancreatitis. KUB x-ray completed showing cannot exclude a 6 mm left ureteral calculus GI oncology service is consulted and anti-emetics ordered 3. Electrolyte imbalance secondary to nausea and vomiting and poor oral intake. Replacement protocol dietary service is consulted to ensure shakes or 4. Carcinoma of the abdominal wall. Patient currently receiving chemotherapy. Oncology services are following 5. Leukocytosis. Initial white blood cell elevated at 17.0. Blood culture and stool for C. diff ordered 6. History of COPD. No exacerbation at this time 7. History of seizure disorder 8. History of rheumatoid arthritis 7. Ex-smoker 8. Thrombocytopenia secondary to chemotherapy 9. Peripheral neuropathy. Patient maintained on Neurontin DVT prophylaxis SCDs due to thrombocytopenia. GI prophylaxis Protonix Oncology and GI services consulted Time with Patient: Greater than 30 (Greater than 60% of the total time spent in counseling and coordination of care. I performed an examination of the patient and discussed their management with the Nurse Practitioner. I have reviewed the Nurse Practitioner's notes and agree with the documented findings and plan of care)
--- NOTE | 2019-05-30 12:26 | P.CONS ---
History of Present Illness - Reason for Consult Consult date: 05/30/19 Nausea, vomiting, this electrolyte thrombocytopenia. Colon cancer on chemo - History of Present Illness The pt is a 73 yr old WF, followed by Dr Chowdhury for Oncology care. She presented to Dr Koffi Queen for screening Colonoscopy in 03/14. She was asymptomatic. The patient mother & maternal G mother both had Colon cancers, 2 brother had multiple Colonic polyps. 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 The patient had Robotic-assited L Hemicolectomy by Dr Opal Montes De Oca on 03/23/18> rather small 1.8X1.3X0.7 cm Adenocarcinoma with Mucinous features identified present on serosal surfaces with 3-4 discontiguous tumor deposits identified. All 14 LN were negative for metastatic disease (Stage [id number] - IIB). Her post op course unremarkable. The patient smokes 1 PPD X 40 years, trying to quit, she denies ETOH use, she was born in [place] and raised in [place]. Family cancer history as above. The patient was started on Xeloda adjuvantly in 04/15. 10/27/18: Feels Ok, completed Xeloda. CT Scan : Cystic lesion in breast and upper R abdominal wall. 12/15/18: C/O RUQ abdominal wall pain, Bx of lesion C/W metastatic Colon Cancer. Was seen at [facility] > No surgery, On [place] for pain control.She was referred after evidence of rapid progression, for palliative radiation, completed and now started on FOLFOX and Erbitux She is now status Post cycle 3 of FOLFOX with ERBITUX. The patient was admitted after cycle 2, and seen in consult. At that time of complaints consisted of extremity and tongue weakness and numbness. Initially there was concern for TIAs though there is a strong possibility that these represented neuropathic symptoms from oxaliplatin. MEDICAL RADIATION DOSIMETRIST imaging was negative. The patient was discharged with increased dose of gabapentin. He received cycle #3 from 05/25-05/27/19. She states that during her previous cycle she had felt somewhat queasy off and on but symptoms had responded to antibiotics. After day 1 of cycle #3, her nausea and vomiting became much more prominent, along with upper abdominal discomfort. This continued to worsen, and did not respond to change in diet, or antibiotics. She therefore came into the hospital and was admitted for further management, with labs showing limited lipase, as well as low potassium and magnesium. The patient also noted loose bowel movements up to 4-6 per day since her last chemo. The thirdof further evaluation and recommendations. She reported marked improvement in the numbness and tingling in her extremities and tongue with this cycle Review of Systems Constitutional: Reports fatigue, Reports poor appetite, Reports weakness, Reports weight loss Eyes: denies blurred vision, denies pain Ears: deny: decreased hearing, ear discharge, earache, tinnitus Ears, nose, mouth and throat: Denies headache, Denies sore throat Cardiovascular: Reports decreased exercise tolerance Respiratory: Denies cough Gastrointestinal: Reports abdominal pain, Reports diarrhea, Reports nausea, Reports vomiting Genitourinary: Denies dysuria, Denies hematuria Menstruation: Reports postmenopausal Musculoskeletal: Reports muscle weakness Integumentary: Denies pruritus, Denies rash Neurological: Reports paresthesias, Reports tingling, Reports weakness Psychiatric: Reports anxiety, Denies depression Endocrine: Reports fatigue, Reports weight change Hematologic/Lymphatic: Reports as per HPI Past Medical History Past Medical History: Asthma, Cancer, COPD, Deep Vein Thrombosis (DVT), Eye Disorder, Liver Disease, Pneumonia, Rheumatoid Arthritis (RA), Seizure Disorder Additional Past Medical History / Comment(s): HX PLEURISY CHILD; HAS "CO MPROMISED LUNGS," BRONCHITIS AND PNEUMONIA NUMEROUS TIMES. HX R PNEUMOTHORAX 30 YRS AGO. NUMEROUS FX, TEETH KNOCKED OUt, HX RLS. HX OF SEIZURES, HX Hepatitis C at 16 yrs of age. RT eye Glaucoma. thrombophlebitis x2, CA COLON-CURRENT History of Any Multi-Drug Resistant Organisms: None Reported Past Surgical History: Bowel Resection, Tonsillectomy Additional Past Surgical History / Comment(s): Colonoscopy. KIDNEY STONE RE MOVAL. bowel surgery due to CA Past Anesthesia/Blood Transfusion Reactions: No Reported Reaction Past Psychological History: No Psychological Hx Reported Additional Psychological History / Comment(s): VERY AGITATED & SHORT-TEMPERED, HOSTILE AT TIMES. Smoking Status: Former smoker Past Alcohol Use History: None Reported Additional Past Alcohol Use History / Comment(s): Has been smoking since 10 yrs old, trying to quit, down to 1-5 cigarettes some days. Quit October 2018 Past Drug Use History: None Reported Additional Drug Use History / Comment(s): LAST USED MARIJUANA A TEENAGER. - Past Family History Father Family Medical History: No Reported History Mother Family Medical History: Cancer, Coronary Artery Disease (CAD), Diabetes Mellitus Additional Family Medical History / Comment(s): Colon cancer Daughter(s) Family Medical History: Cancer Additional Family Medical History / Comment(s): Hodgkins Medications and Allergies Home Medications Medication Instructions Recorded Confirmed Type Omeprazole [PriLOSEC] 20 mg PO DAILY 05/06/14 05/29/19 History Nicotine 21Mg/24Hr Patch [Habitrol] 1 patch TRANSDERM DAILY #12 patch 05/13/17 05/29/19 Rx Albuterol Inhaler [Ventolin Hfa 1 - 2 puff INHALATION RT-Q6H PRN 02/10/18 05/29/19 History Inhaler] Ergocalciferol (Vitamin D2) 50,000 unit PO SA 03/23/18 05/29/19 History [Vitamin D2] Albuterol Nebulized [Ventolin 2.5 mg INHALATION RT-QID 02/15/19 05/29/19 History Nebulized] Doxycycline Hyclate [Vibramycin] 100 mg PO BID 05/06/19 05/29/19 History HYDROcodone/APAP 5-325MG [[place] 1 tab PO Q6HR PRN 05/06/19 05/29/19 History 5-325] Ipratropium/Albuterol Sulfate 1 puff INHALATION RT-QID PRN 05/06/19 05/29/19 History [Combivent Respimat Inhaler] Ondansetron [Zofran] 4 mg PO Q8HR PRN 05/06/19 05/29/19 History Nystatin 100,000 Unit/ml Susp 500,000 unit PO QID 7 Days #28 cup 05/11/19 1 07/29/18 Rx [Mycostatin Oral Susp] Cholecalciferol [Vitamin D3 (25 5,000 unit PO DAILY 05/29/19 05/29/19 History Mcg = 1000 Iu)] Allergies Allergy/AdvReac Type Severity Reaction Status Date / Time Penicillins Allergy Severe Swelling/Ra Verified 05/29/19 16:31 sh marijuana AdvReac seizures Verified 05/29/19 16:31 Physical Exam Vitals: Vital Signs Temp Pulse Pulse Resp BP BP Pulse Ox 05/30/19 09:41 80 05/30/19 09:28 84 05/30/19 04:25 97.9 F 87 16 126/75 97 05/29/19 21:29 98.4 F 95 16 131/73 96 05/29/19 17:56 97.9 F 108 H 16 117/70 95 05/29/19 17:15 98.3 F 114 H 18 126/64 98 05/29/19 14:30 93 17 150/84 100 05/29/19 14:00 92 16 137/109 98 05/29/19 13:30 101 H 12 154/97 98 05/29/19 13:00 106 H 24 144/95 97 05/29/19 12:30 98 12 131/108 96 05/29/19 12:09 98.4 F 107 H 18 131/108 97 Intake and Output 05/29/19 05/30/19 05/30/19 23:59 06:59 14:59 Other: Voiding Method # Voids - Constitutional General appearance: no acute distress - EENT Eyes: EOMI, PERRLA ENT: hearing grossly normal, normal oropharynx - Neck Neck: no lymphadenopathy - Respiratory Respiratory: bilateral: CTA - Cardiovascular Rhythm: regular Heart sounds: normal: S1, S2 - Gastrointestinal General gastrointestinal: normal bowel sounds, soft Localized gastrointestinal: mass: RUQ (Ill-defined, just under right costal margin) - Integumentary Integumentary: normal - Neurologic Neurologic: CNII-XII intact - Musculoskeletal Musculoskeletal: generalized weakness, strength equal bilaterally - Psychiatric Psychiatric: A&O x's 3, appropriate affect Results CBC & Chem 7: 05/30/19 10:50 05/30/19 10:50 Labs: Abnormal Lab Results - Last 24 Hours (Table) 05/29/19 05/29/19 05/29/19 Range/Units 12:20 12:20 12:20 WBC 17.0 H (3.8-10.6) k/uL MCV 100.3 H (80.0-100.0) fL Plt Count 146 L D (150-450) k/uL Neutrophils # 15.8 H (1.3-7.7) k/uL Lymphocytes # 0.8 L (1.0-4.8) k/uL Potassium 3.0 L (3.5-5.1) mmol/L Glucose 108 H (74-99) mg/dL POC Glucose (mg/dL) (75-99) mg/dL Magnesium 1.3 L (1.6-2.3) mg/dL AST 57 H (14-36) U/L Amylase 116 H (30-110) U/L Lipase 736 H (23-300) U/L Urine Protein (Negative) Urine Mucus (None) /hpf 05/29/19 05/29/19 05/29/19 Range/Units 14:55 18:05 20:25 WBC (3.8-10.6) k/uL MCV (80.0-100.0) fL Plt Count (150-450) k/uL Neutrophils # (1.3-7.7) k/uL Lymphocytes # (1.0-4.8) k/uL Potassium 3.2 L (3.5-5.1) mmol/L Glucose (74-99) mg/dL POC Glucose (mg/dL) 130 H (75-99) mg/dL Magnesium (1.6-2.3) mg/dL AST (14-36) U/L Amylase (30-110) U/L Lipase (23-300) U/L Urine Protein 1+ H (Negative) Urine Mucus Rare H (None) /hpf 05/30/19 Range/Units 10:52 WBC (3.8-10.6) k/uL MCV (80.0-100.0) fL Plt Count (150-450) k/uL Neutrophils # (1.3-7.7) k/uL Lymphocytes # (1.0-4.8) k/uL Potassium (3.5-5.1) mmol/L Glucose (74-99) mg/dL POC Glucose (mg/dL) 106 H (75-99) mg/dL Magnesium (1.6-2.3) mg/dL AST (14-36) U/L Amylase (30-110) U/L Lipase (23-300) U/L Urine Protein (Negative) Urine Mucus (None) /hpf Chest x-ray: report reviewed Abdominal x-ray: report reviewed Assessment and Plan Assessment: #1. Nausea, vomiting, abdominal pain, pancreatitis #2. Dyselectrolytemia #3. Metastatic colon cancer, on chemo #4. Anemia - chemo induced Plan: #1. Her abdominal symptoms appear to be likely due to pancreatitis. Etiology of this is not known at this time. Case was discussed with the admitting service. There are case reports of oxaliplatin causing pancreatitis. Therefore if other causes or ruled out, this may represent chemotherapy effect. The chemotherapy directly causing abdominal symptoms is also possibility, as the patient is also having some diarrhea. - Check additional imaging with ultrasound of the abdomen to rule out calculus/obstruction. - Supportive treatment with diet modification, pain control and IV antibiotics. Additional workup for diarrhea with C. diff has been ordered - If no other causes of pancreatitis is found, then we would have to consider chemotherapy effect as the probable cause #2. Due to nausea, vomiting and diarrhea. Oxaliplatin itself can cause hypokalemia and hypomagnesemia.. Supplementation has been ordered, along with IV hydration #3. The patient is currently on chemotherapy as noted. It was discussed with her that imaging at this time may be of limited utility as it may be too early for us to accurately assess treatment effect. I will check CEA levels. As noted above, it is possible that at least some of her symptoms are due to chemotherapy effect. Therefore on resumption of treatment after resolution of her acute situation, we may need to consider modification of her regimen The patient is well aware that the intent of chemotherapy is palliative. However she would like to continue active treatment as long as reasonable treatment options available #4 due to chemotherapy effect. Hemoglobin is in a safe range. Continue to monitor with support as needed
[2019-05-30] MEDS: POTASSIUM CHLORIDE ER 20 MEQ TAB.ER PO SCH ×2 (12:57→13:02)
[2019-05-30] MEDS: MAGNESIUM SULFATE-D5W PMX 1 GM in DEXTROSE/WATER 1 100ML.BAG IVPB SCH ×3 (12:57→15:39)
[2019-05-30] MEDS ORDERED: TRIMETHOBENZAMIDE 300 MG CAP PO PRN (13:20)
[2019-05-30] MEDS ORDERED: TRIMETHOBENZAMIDE 100 MG/ML 2 ML VIAL IM STA (13:20)
[2019-05-30 13:30] VITALS: BMI 16.2
[2019-05-30] MEDS: POTASSIUM CHLORIDE 20 MEQ in WATER FOR INJECTION 1 100ML.BAG IVPB SCH ×3 (16:55→20:15)
[2019-05-30] MEDS: ONDANSETRON 4 MG/2 ML VIAL IVP SCH (16:58)
[2019-05-30 17:35] LABS: Glucose,Whole Blood 99 mg/dL (75-99)
--- NOTE | 2019-05-30 18:45 | P.CONS ---
History of Present Illness - Reason for Consult Consult date: 05/30/19 Nausea and vomiting, elevated lipase Requesting physician: Bailey Mart - Chief Complaint Nausea and vomiting - History of Present Illness 73-year-old female with a medical history significant for asthma, COPD, DVT, rheumatoid arthritis, seizure disorder, prior tobacco abuse and colon cancer with metastases to the abdominal wall who presented to the hospital with complaints of nausea and vomiting. The patient reports increased nausea and vomiting since receiving her last dose of chemotherapy. She reports associated decreased oral intake secondary to the nausea and vomiting. She reports nausea is constant with symptoms exacerbated when she tries to eat or drink. She was given an antiemetic therapy in the emergency department and reports an full reaction to 1 of the medications, likely Reglan. She also reports some loose bowel movements. She describes it as a loose watery without any blood with 6 bowel movements on , 3 on Friday and 1 today. Laboratory evaluation on presentation was significant for WBC 17, hemoglobin 13.7, platelet count 146,000, amylase 116, lipase 736, total bilirubin 0.8, alkaline phosphatase 108, AST 57 and ALT 35. Review of Systems REVIEW OF SYSTEMS: CONSTITUTIONAL: Denies any fevers, chills, but does report weight loss and fatigue and association with decreased oral intake. CARDIOVASCULAR: Denies any chest pain, palpitations high or low blood pressures RESPIRATORY: Denies any shortness of breath, hemoptysis or cough. GENITOURINARY: No dysuria or hematuria. MUSCULOSKELETAL: No focal weakness reported. SKIN: Denies any new rashes or lesions, jaundice or pallor. PSYCHIATRIC: Denies recent change in mood. NEUROLOGY: Denies headache, denies any new focal deficits. EARS/NOSE/THROAT: No recent hearing change, congestion, nasal discharge or sore throat. EYES: No pain in eyes, discharge or change in vision. GASTROINTESTINAL: As per HPI. Past Medical History Past Medical History: Asthma, Cancer, COPD, Deep Vein Thrombosis (DVT), Eye Disorder, Liver Disease, Pneumonia, Rheumatoid Arthritis (RA), Seizure Disorder Additional Past Medical History / Comment(s): HX PLEURISY CHILD; HAS "COMPROMISED LUNGS," BRONCHITIS AND PNEUMONIA NUMEROUS TIMES. HX R PNEUMOTHORAX 30 YRS AGO. NUMEROUS FX, TEETH KNOCKED OUt, HX RLS. HX OF SEIZURES, HX Hepatitis C at 16 yrs of age. RT eye Glaucoma. thrombophlebitis x2, CA COLON- CURRENT History of Any Multi-Drug Resistant Organisms: None Reported Past Surgical History: Bowel Resection, Tonsillectomy Additional Past Surgical History / Comment(s): Colonoscopy. KIDNEY STONE REMOVAL. bowel surgery due to CA Past Anesthesia/Blood Transfusion Reactions: No Reported Reaction Past Psychological History: No Psychological Hx Reported Additional Psychological History / Comment(s): VERY AGITATED & SHORT-TEMPERED, HOSTILE AT TIMES. Smoking Status: Former smoker Past Alcohol Use History: None Reported Additional Past Alcohol Use History / Comment(s): Has been smoking since 10 yrs old, trying to quit, down to 1-5 cigarettes some days. Quit October 2018 Past Drug Use History: None Reported Additional Drug Use History / Comment(s): LAST USED MARIJUANA A TEENAGER. - Past Family History Father Family Medical History: No Reported History Mother Family Medical History: Cancer, Coronary Artery Disease (CAD), Diabetes Mellitus Additional Family Medical History / Comment(s): Colon cancer Daughter(s) Family Medical History: Cancer Additional Family Medical History / Comment(s): Hodgkins Medications and Allergies Home Medications Medication Instructions Recorded Confirmed Type Omeprazole [PriLOSEC] 20 mg PO DAILY 05/06/14 05/29/19 History Nicotine 21Mg/24Hr Patch [Habitrol] 1 patch TRANSDERM DAILY #12 patch 05/13/17 05/29/19 Rx Albuterol Inhaler [Ventolin Hfa 1 - 2 puff INHALATION RT-Q6H PRN 02/10/18 05/29/19 History Inhaler] Ergocalciferol (Vitamin D2) 50,000 unit PO SA 03/23/18 05/29/19 History [Vitamin D2] Albuterol Nebulized [Ventolin 2.5 mg INHALATION RT-QID 02/15/19 05/29/19 History Nebulized] Doxycycline Hyclate [Vibramycin] 100 mg PO BID 05/06/19 05/29/19 History HYDROcodone/APAP 5-325MG [[place] 1 tab PO Q6HR PRN 05/06/19 05/29/19 History 5-325] Ipratropium/Albuterol Sulfate 1 puff INHALATION RT-QID PRN 05/06/19 05/29/19 History [Combivent Respimat Inhaler] Ondansetron [Zofran] 4 mg PO Q8HR PRN 05/06/19 05/29/19 History Nystatin 100,000 Unit/ml Susp 500,000 unit PO QID 7 Days #28 cup 05/11/19 05/29/19 Rx [Mycostatin Oral Susp] Cholecalciferol [Vitamin D3 (25 5,000 unit PO DAILY 05/29/19 05/29/19 History Mcg = 1000 Iu)] Allergies Allergy/AdvReac Type Severity Reaction Status Date / Time Penicillins Allergy Severe Swelling/Ra Verified 05/29/19 16:31 sh marijuana AdvReac seizures Verified 05/29/19 16:31 Physical Exam Vitals: Vital Signs Temp Pulse Pulse Resp BP BP Pulse Ox 05/30/19 04:25 97.9 F 87 16 126/75 97 05/29/19 21:29 98.4 F 95 16 131/73 96 05/29/19 17:56 97.9 F 108 H 16 117/70 95 05/29/19 17:15 98.3 F 114 H 18 126/64 98 05/29/19 14:30 93 17 150/84 100 05/29/19 14:00 92 16 137/109 98 05/29/19 13:30 101 H 12 154/97 98 05/29/19 13:00 106 H 24 144/95 97 05/29/19 12:30 98 12 131/108 96 05/29/19 12:09 98.4 F 107 H 18 131/108 97 Intake and Output 05/29/19 05/30/19 05/30/19 23:59 06:59 14:59 Other: Voiding Method # Voids On physical examination, patient appears comfortable in no apparent distress. HEAD: Normocephalic, atraumatic. EYES: No scleral icterus. No conjunctival injection. MOUTH: No lesions, tongue midline. NECK: Trachea midline, no gross abnormalities. CHEST: Clear to auscultation with no wheezing or rhonchi appreciated. HEART: Regular rate and rhythm. ABDOMEN: Soft, thin. Bowel sounds are positive. No organomegaly. No guarding or rigidity. EXTREMITIES: No pedal edema. SKIN: No rashes, no jaundice. NEUROLOGIC: Alert and oriented x3. No focal deficits. Results CBC & Chem 7: 05/30/19 10:50 05/30/19 15:19 Labs: Abnormal Lab Results - Last 24 Hours (Table) 05/29/19 05/29/19 05/29/19 Range/Units 12:20 12:20 12:20 WBC 17.0 H (3.8-10.6) k/uL MCV 100.3 H (80.0-100.0) fL Plt Count 146 L D (150-450) k/uL Neutrophils # 15.8 H (1.3-7.7) k/uL Lymphocytes # 0.8 L (1.0-4.8) k/uL Potassium 3.0 L (3.5-5.1) mmol/L Glucose 108 H (74-99) mg/dL POC Glucose (mg/dL) (75-99) mg/dL Magnesium 1.3 L (1.6-2.3) mg/dL AST 57 H (14-36) U/L Amylase 116 H (30-110) U/L Lipase 736 H (23-300) U/L Urine Protein (Negative) Urine Mucus (None) /hpf 05/29/19 05/29/19 05/29/19 Range/Units 14:55 18:05 20:25 WBC (3.8-10.6) k/uL MCV (80.0-100.0) fL Plt Count (150-450) k/uL Neutrophils # (1.3-7.7) k/uL Lymphocytes # (1.0-4.8) k/uL Potassium 3.2 L (3.5-5.1) mmol/L Glucose (74-99) mg/dL POC Glucose (mg/dL) 130 H (75-99) mg/dL Magnesium (1.6-2.3) mg/dL AST (14-36) U/L Amylase (30-110) U/L Lipase (23-300) U/L Urine Protein 1+ H (Negative) Urine Mucus Rare H (None) /hpf Abdominal x-ray: report reviewed (possible L ureteral calculi on KUB XR) Assessment and Plan (1) Nausea & vomiting Narrative/Plan: 73-year-old female with multiple medical comorbidities including prior history of colon cancer with findings of metastases to the abdominal wall for which she is currently receiving chemotherapy who presented to the hospital with intractable nausea and vomiting. Suspicion is for symptoms secondary to c hemotherapy. Patient was also found to have mildly elevated amylase and lipase, which can be seen in the setting of dehydration are also associated with the chemotherapy. Ultrasound of the abdomen will be performed to rule out biliary pathology and triglyceride level ordered. Continue symptomatic treatment. Current Visit: Yes Status: Acute Code(s): R11.2 - NAUSEA WITH VOMITING, UNSPECIFIED SNOMED Code(s): 10741030 (2) Elevated lipase Current Visit: Yes Status: Acute Code(s): R74.8 - ABNORMAL LEVELS OF OTHER SERUM ENZYMES SNOMED Code(s): 649146888 Plan: Supportive care Okay for diet as tolerated Frequency of Zofran increased to every 6 hours [id number] Tigan added as needed for breakthrough nausea One-time dose of intramuscular Tigan ordered Protonix 40 mg IV twice daily Ultrasound abdomen ordered Triglyceride level ordered Continue to monitor symptomatically Thank you for allowing us to participate in the care of the patient we will continue to follow
[2019-05-30] MEDS: PANTOPRAZOLE 40 MG/10 ML VIAL IVP SCH (20:15)
[2019-05-30 20:31] LABS: Glucose,Whole Blood 101 mg/dL (75-99)
[2019-05-31] MEDS: ONDANSETRON 4 MG/2 ML VIAL IVP SCH ×4 (00:19→17:30)
[2019-05-31] MEDS: SODIUM CHLORIDE 0.9% 1,000 ML IV SCH ×3 (00:31→17:31)
[2019-05-31] MEDS: HYDROcodone/APAP 5-325MG 1 EACH TAB PO PRN ×4 (02:11→20:56)
[2019-05-31] MEDS: POTASSIUM CHLORIDE ER 20 MEQ TAB.ER PO SCH ×2 (05:09→06:00)
[2019-05-31 07:11] LABS: Glucose,Whole Blood 79 mg/dL (75-99)
[2019-05-31] MEDS: NICOTINE 21MG/24HR PATCH TRANSDERM SCH ×2 (08:11→08:12)
[2019-05-31] MEDS: CHOLECALCIFEROL 1,000 UNIT TAB PO SCH (08:11)
[2019-05-31] MEDS: GABAPENTIN 400 MG CAP PO SCH ×3 (08:11→20:56)
[2019-05-31] MEDS: PANTOPRAZOLE 40 MG/10 ML VIAL IVP SCH ×2 (08:12→20:56)
--- NOTE | 2019-05-31 08:29 | US ---
EXAMINATION TYPE: US abdomen complete DATE OF EXAM: 05/31/2019 COMPARISON: NONE CLINICAL HISTORY: Abdominal pain. Pain CA tumor in abdomen on chemo. EXAM MEASUREMENTS: Liver Length: 14.3 cm Gallbladder Wall: .2 cm CBD: .4 cm Spleen: 10.4 cm Right Kidney: 10.8 x 4.6 x 5.0 cm Left Kidney: 10.4 x 5.1 x 4.1 cm Pancreas: wnl Liver: wnl Gallbladder: wnl Evidence for sonographic Riley's sign: No CBD: wnl Spleen: wnl Right Kidney: wnl Left Kidney: wnl Upper IVC: wnl Abd Aorta: wnl The liver is homogenous. The intrahepatic portion of the IVC and proximal abdominal aorta are within normal limits. There is no evidence of cholelithiasis. Common bile duct is unremarkable. The visu alized portions of the pancreas are homogenous. The spleen is unremarkable. Kidneys are symmetric a nd free of hydronephrosis. No renal lesions are seen. IMPRESSION: Unremarkable abdominal ultrasound. Visualized portions of the liver are homogeneous.
[2019-05-31] MEDS: ALBUTEROL NEBULIZED 2.5 MG/3 ML INHALATION SCH ×4 (08:31→23:07)
[2019-05-31 11:09] LABS: Glucose,Whole Blood 110 mg/dL (75-99)
[2019-05-31 11:28] LABS: ALT 32 U/L (9-52); AST 49 U/L (14-36); African American GFR (CKD) >90 (>60 ml/min/1.73 sqM); Albumin 2.8 g/dL (3.5-5.0); Alkaline Phosphatase 178 U/L (38-126); Anion Gap 6 mmol/L; Bilirubin, Delta 0.2 mg/dL (0.0-0.2); Bilirubin,Unconjugated 0.3 mg/dL (0.0-1.1); Blood Urea Nitrogen 2 mg/dL (7-17); Calcium 7.9 mg/dL (8.4-10.2); Carbon Dioxide 26 mmol/L (22-30); Chloride 111 mmol/L (98-107); Glucose 62 mg/dL (74-99); Magnesium 1.6 mg/dL (1.6-2.3); Potassium 3.7 mmol/L (3.5-5.1); Sodium 143 mmol/L (137-145); Total Bilirubin 0.5 mg/dL (0.2-1.3); Total Protein 5.8 g/dL (6.3-8.2); Triglycerides 70 mg/dL (<150)
[2019-05-31 11:37] LABS: Basophils # (A) 0.1 k/uL (0-0.2); Basophils % (A) 0 %; Eosinophils # (A) 0.2 k/uL (0-0.7); Eosinophils % (A) 1 %; HCT 33.7 % (34.0-46.0); HGB 11.2 gm/dL (11.4-16.0); Lymphocytes # (A) 0.7 k/uL (1.0-4.8); Lymphocytes % (A) 6 %; MCH 34.3 pg (25.0-35.0); MCHC 33.3 g/dL (31.0-37.0); Macrocytosis Slight; Mean Platelet Volume 7.7; Monocytes # (A) 0.4 k/uL (0-1.0); Monocytes % (A) 3 %; Neutrophils # (A) 11.4 k/uL (1.3-7.7); Neutrophils % (A) 89 %; RBC 3.27 m/uL (3.80-5.40); RDW 14.9 % (11.5-15.5); WBC 12.9 k/uL (3.8-10.6)
[2019-05-31 11:42] LABS: Platelet Count 82 k/uL (150-450)
[2019-05-31 12:32] LABS: Toxic Granulation Present
--- NOTE | 2019-05-31 12:34 | P.PN ---
Subjective Progress Note Date: 05/31/19 This is a 73-year-old who presents with complaints of nausea and vomiting over the past few days. Patient reports that she received chemotherapy and pump removal last and since then has had increased nausea and vomiting patient reports that her oral intake has been low. Patient denies constipation or diarrhea. Patient denies fevers. Patient does have a known past medical history of abdominal wall cancer, asthma, COPD, DVT, eye disorder, liver disease, pneumonia, rheumatoid arthritis, seizure disorder and ex-smoker. KUB x-ray completed showing I cannot exclude a 6 mm left ureter calculus. Chest x- ray completed showing no active intrathoracic disease. correlate for COPD. Patient amylase and lipase elevated at 116 and 736. GI oncology services have been consulted. Potassium and magnesium replacement protocol. Anti-emetics ordered. Patient denies chest pain or shortness breath. Patient denies nausea vomiting or diarrhea. Patient denies any urinary burning or frequency On 05/31/2019 patient is alert and oriented 3. Patient reports that she is feeling slightly improved today. Nausea has subsided. Electrolytes are improving. Amylase and lipase are trending down. Patient denies chest pain or shortness of breath. Patient denies nausea vomiting or diarrhea. Patient denies any urinary frequency Objective - Vital Signs Vital signs: Vital Signs Temp 98.7 F 05/31/19 11:12 Pulse 103 H 05/31/19 11:12 Resp 18 05/31/19 11:12 BP 157/83 05/31/19 11:12 Pulse Ox 97 05/31/19 11:12 Intake & Output 05/30/19 05/31/19 05/31/19 18:59 06:59 18:59 Intake Total 120 1590 Balance 120 1590 Weight 49.895 kg Intake: Intake, IV Titration 1050 Amount Potassium Chloride 20 meq 50 In Water For Injection 1 100ml.bag @ 50 mls/hr IVPB Q2H [facility] Rx#: [id number] Sodium Chloride 0.9% 1, 1000 000 ml @ 100 mls/hr IV . Q10H [facility] Rx#:[id number] Oral 120 540 Other: Voiding Method Toilet Toilet # Voids 2 2 - Exam Head normocephalic Neck supple Lungs clear to auscultation bilaterally no wheezing or crackles Heart regular rate and rhythm S1-S2, no rub or gallop Abdomen is soft nontender nondistended positive bowel sounds no hepatosplenomegaly Extremities no edema Neuro alert and orientated to 3 - Labs CBC & Chem 7: 05/31/19 07:52 05/31/19 07:52 Labs: Abnormal Lab Results - Last 24 Hours (Table) 05/30/19 05/30/19 05/31/19 Range/Units 15:19 20:30 01:36 WBC (3.8-10.6) k/uL RBC (3.80-5.40) m/uL Hgb (11.4-16.0) gm/dL Hct (34.0-46.0) % MCV (80.0-100.0) fL Potassium 2.7 L* 3.0 L (3.5-5.1) mmol/L Chloride (98-107) mmol/L BUN (7-17) mg/dL Glucose (74-99) mg/dL POC Glucose (mg/dL) 101 H (75-99) mg/dL Calcium (8.4-10.2) mg/dL AST (14-36) U/L Alkaline Phosphatase (38-126) U/L Total Protein (6.3-8.2) g/dL Albumin (3.5-5.0) g/dL 05/31/19 05/31/19 05/31/19 Range/Units 07:52 07:52 11:03 WBC 12.9 H (3.8-10.6) k/uL RBC 3.27 L (3.80-5.40) m/uL Hgb 11.2 L (11.4-16.0) gm/dL Hct 33.7 L (34.0-46.0) % MCV 103.0 H (80.0-100.0) fL Potassium (3.5-5.1) mmol/L Chloride 111 H (98-107) mmol/L BUN 2 L (7-17) mg/dL Glucose 62 L (74-99) mg/dL POC Glucose (mg/dL) 110 H (75-99) mg/dL Calcium 7.9 L (8.4-10.2) mg/dL AST 49 H (14-36) U/L Alkaline Phosphatase 178 H (38-126) U/L Total Protein 5.8 L (6.3-8.2) g/dL Albumin 2.8 L (3.5-5.0) g/dL Microbiology - Last 24 Hours (Table) 05/29/19 13:33 Blood Culture - Preliminary Blood No Growth after 24 hours Assessment and Plan Assessment: 1. Acute pancreatitis. Amylase elevated at 116 lipase 736. Patient started clear liquid diet GI service is consulted. Discussed case with oncology services this could be secondary to patient's chemotherapy. Abdominal ultrasound completed showing unremarkable abdominal ultrasound visualized portions of liver are homogeneous. 2. Nausea and vomiting likely secondary to chemotherapy and acute pancreatitis. KUB x-ray completed showing cannot exclude a 6 mm left ureteral calculus GI oncology service is consulted and anti-emetics ordered 3. Electrolyte imbalance secondary to nausea and vomiting and poor oral intake. Replacement protocol dietary service is consulted. Ensure shakes ordered 4. Carcinoma of the abdominal wall. Patient currently receiving chemotherapy. Oncology services are following 5. Leukocytosis. Initial white blood cell elevated at 17.0. Blood culture and stool for C. diff ordered. White blood cell 12.9 6. History of COPD. No exacerbation at this time 7. History of seizure disorder 8. History of rheumatoid arthritis 7. Ex-smoker 8. Thrombocytopenia secondary to chemotherapy 9. Peripheral neuropathy. Patient maintained on Neurontin DVT prophylaxis SCDs due to thrombocytopenia. GI prophylaxis Protonix Oncology and GI services consulted PT OT consulted
[2019-05-31] MEDS: NYSTATIN 100,000 UNIT/ML SUSP 500,000 UNIT/5 ML CUP PO SCH ×3 (13:18→20:55)
[2019-05-31] MEDS: POTASSIUM CHLORIDE 10 MEQ in WATER FOR INJECTION 1 100ML.BAG IVPB SCH ×2 (13:53→14:37)
[2019-05-31] MEDS: MAGNESIUM SULFATE-D5W PMX 1 GM in DEXTROSE/WATER 1 100ML.BAG IVPB SCH ×2 (15:42→16:42)
[2019-05-31 17:00] LABS: Glucose,Whole Blood 110 mg/dL (75-99)
[2019-05-31 20:55] LABS: Glucose,Whole Blood 89 mg/dL (75-99)
--- NOTE | 2019-05-31 22:06 | P.PN ---
Subjective Progress Note Date: 05/31/19 Principal diagnosis: Nausea and vomiting, elevated lipase Patient is seen lying in bed. Reporting nausea and vomiting is improved. Tolerated diet. Abdominal pain improving. Objective - Vital Signs Vital signs: Vital Signs Temp 98.7 F 05/31/19 11:12 Pulse 95 05/31/19 17:21 Resp 16 05/31/19 17:12 BP 157/83 05/31/19 11:12 Pulse Ox 97 05/31/19 11:12 Intake & Output 05/31/19 05/31/19 06/01/19 06:59 18:59 06:59 Intake Total 1590 3600 Balance 1590 3600 Weight 49.895 kg Intake: Intake, IV Titration 1050 1200 Amount Potassium Chloride 20 meq 50 In Water For Injection 1 100ml.bag @ 50 mls/hr IVPB Q2H [facility] Rx#: [id number] Sodium Chloride 0.9% 1, 1000 1200 000 ml @ 100 mls/hr IV . Q10H [facility] Rx#:[id number] Oral 540 2400 Other: Voiding Method Toilet Toilet # Voids 2 2 - Exam On physical examination, patient appears comfortable in no apparent distress. HEAD: Normocephalic, atraumatic. EYES: No scleral icterus. No conjunctival injection. MOUTH: No lesions, tongue midline. NECK: Trachea midline, no gross abnormalities. ABDOMEN: Soft, thin. Bowel sounds are positive. No organomegaly. No guarding or rigidity. EXTREMITIES: No pedal edema. SKIN: No rashes, no jaundice. NEUROLOGIC: Alert and oriented x3. No focal deficits. - Labs CBC & Chem 7: 05/31/19 07:52 05/31/19 07:52 Labs: Abnormal Lab Results - Last 24 Hours (Table) 05/31/19 05/31/19 05/31/19 Range/Units 01:36 07:52 07:52 WBC 12.9 H (3.8-10.6) k/uL RBC 3.27 L (3.80-5.40) m/uL Hgb 11.2 L (11.4-16.0) gm/dL Hct 33.7 L (34.0-46.0) % MCV 103.0 H (80.0-100.0) fL Plt Count 82 L (150-450) k/uL Neutrophils # 11.4 H (1.3-7.7) k/uL Lymphocytes # 0.7 L (1.0-4.8) k/uL Potassium 3.0 L (3.5-5.1) mmol/L Chloride 111 H (98-107) mmol/L BUN 2 L (7-17) mg/dL Glucose 62 L (74-99) mg/dL POC Glucose (mg/dL) (75-99) mg/dL Calcium 7.9 L (8.4-10.2) mg/dL AST 49 H (14-36) U/L Alkaline Phosphatase 178 H (38-126) U/L Total Protein 5.8 L (6.3-8.2) g/dL Albumin 2.8 L (3.5-5.0) g/dL 05/31/19 05/31/19 Range/Units 11:03 16:58 WBC (3.8-10.6) k/uL RBC (3.80-5.40) m/uL Hgb (11.4-16.0) gm/dL Hct (34.0-46.0) % MCV (80.0-100.0) fL Plt Count (150-450) k/uL Neutrophils # (1.3-7.7) k/uL Lymphocytes # (1.0-4.8) k/uL Potassium (3.5-5.1) mmol/L Chloride (98-107) mmol/L BUN (7-17) mg/dL Glucose (74-99) mg/dL POC Glucose (mg/dL) 110 H 110 H (75-99) mg/dL Calcium (8.4-10.2) mg/dL AST (14-36) U/L Alkaline Phosphatase (38-126) U/L Total Protein (6.3-8.2) g/dL Albumin (3.5-5.0) g/dL Microbiology - Last 24 Hours (Table) 05/29/19 13:33 Blood Culture - Preliminary Blood No Growth after 48 hours Assessment and Plan (1) Nausea & vomiting Narrative/Plan: 73-year-old female with multiple medical comorbidities including prior history of colon cancer with findings of metastases to the abdominal wall for which she is currently receiving chemotherapy who presented to the hospital with intr actable nausea and vomiting. Suspicion is for symptoms secondary to chemotherapy. Patient was also found to have mildly elevated amylase and lipase, which can be seen in the setting of dehydration are also associated with the chemotherapy. Ultrasound of the abdomen unremarkable and triglycerides within normal limit. Overall symptomatically improving. Current Visit: Yes Status: Acute Code(s): R11.2 - NAUSEA WITH VOMITING, UNSPECIFIED SNOMED Code(s): 25595137 (2) Elevated lipase Current Visit: Yes Status: Acute Code(s): R74.8 - ABNORMAL LEVELS OF OTHER SERUM ENZYMES SNOMED Code(s): 167962255 Plan: Supportive care Okay for diet as tolerated Continue Zofran, okay to change to as needed on discharge Tigan added as needed for breakthrough nausea Protonix 40 mg IV twice daily Ultrasound abdomen unremarkable Triglyceride level within normal limits Continue to monitor symptomatically, okay for discharge from gastroenterology standpoint when otherwise medically stable Thank you for allowing us to participate in the care of the patient, the GI service will stand by, please call as recommended questions or concerns
[2019-06-01] MEDS: ONDANSETRON 4 MG/2 ML VIAL IVP SCH ×4 (00:37→17:57)
[2019-06-01] MEDS: SODIUM CHLORIDE 0.9% 1,000 ML IV SCH ×2 (04:57→09:10)
[2019-06-01 07:03] LABS: Glucose,Whole Blood 84 mg/dL (75-99)
[2019-06-01] MEDS: ALBUTEROL NEBULIZED 2.5 MG/3 ML INHALATION SCH ×4 (07:30→20:47)
[2019-06-01 08:05] LABS: ALT 33 U/L (9-52); AST 50 U/L (14-36); African American GFR (CKD) >90 (>60 ml/min/1.73 sqM); Albumin 2.6 g/dL (3.5-5.0); Alkaline Phosphatase 124 U/L (38-126); Amylase 51 U/L (30-110); Anion Gap 6 mmol/L; Blood Urea Nitrogen <2 mg/dL (7-17); Calcium 7.6 mg/dL (8.4-10.2); Carbon Dioxide 24 mmol/L (22-30); Chloride 113 mmol/L (98-107); Glucose 80 mg/dL (74-99); Magnesium 1.4 mg/dL (1.6-2.3); Sodium 143 mmol/L (137-145); Total Bilirubin 0.5 mg/dL (0.2-1.3); Total Protein 5.4 g/dL (6.3-8.2)
[2019-06-01 08:11] LABS: Potassium 3.5 mmol/L (3.5-5.1)
[2019-06-01 08:17] LABS: HCT 31.5 % (34.0-46.0); HGB 10.5 gm/dL (11.4-16.0); MCH 33.8 pg (25.0-35.0); MCHC 33.3 g/dL (31.0-37.0); MCV 101.6 fL (80.0-100.0); Macrocytosis Slight; Mean Platelet Volume 7.6; RDW 14.9 % (11.5-15.5); WBC 7.8 k/uL (3.8-10.6)
[2019-06-01 08:26] LABS: Platelet Count 75 k/uL (150-450)
[2019-06-01] MEDS: HYDROcodone/APAP 5-325MG 1 EACH TAB PO PRN ×3 (08:53→21:45)
[2019-06-01 09:03] LABS: Band Neutrophils % 4 %; Eosinophils # (M) 0.23 k/uL (0-0.7); Lymphocytes # (M) 0.39 k/uL (1.0-4.8); Monocytes # (M) 0.62 k/uL (0-1.0); Neutrophils % (M) 80 %; Nucleated Red Blood Cells 0 /100 WBC (0-0); Total Cells Counted 100
[2019-06-01] MEDS: NICOTINE 21MG/24HR PATCH TRANSDERM SCH (09:08)
[2019-06-01] MEDS: PANTOPRAZOLE 40 MG/10 ML VIAL IVP SCH ×2 (09:08→21:45)
[2019-06-01] MEDS: GABAPENTIN 400 MG CAP PO SCH ×3 (09:08→21:46)
[2019-06-01] MEDS: NYSTATIN 100,000 UNIT/ML SUSP 500,000 UNIT/5 ML CUP PO SCH ×4 (09:08→21:46)
[2019-06-01] MEDS ORDERED: Magnesium Replacement Protocol 1 EACH MISC MISCELLANE PRN (10:06)
[2019-06-01] MEDS: ACETAMINOPHEN TAB 325 MG TAB PO PRN (11:03)
[2019-06-01 11:09] LABS: Glucose,Whole Blood 102 mg/dL (75-99)
[2019-06-01] MEDS: MAGNESIUM SULFATE-D5W PMX 1 GM in DEXTROSE/WATER 1 100ML.BAG IVPB SCH ×3 (11:23→15:06)
--- NOTE | 2019-06-01 12:03 | P.PN ---
Subjective Progress Note Date: 06/01/19 This is a 73-year-old who presents with complaints of nausea and vomiting over the past few days. Patient reports that she received chemotherapy and pump removal last and since then has had increased nausea and vomiting patient reports that her oral intake has been low. Patient denies constipation or diarrhea. Patient denies fevers. Patient does have a known past medical history of abdominal wall cancer, asthma, COPD, DVT, eye disorder, liver disease, pneumonia, rheumatoid arthritis, seizure disorder and ex-smoker. KUB x-ray completed showing I cannot exclude a 6 mm left ureter calculus. Chest x- ray completed showing no active intrathoracic disease. correlate for COPD. Patient amylase and lipase elevated at 116 and 736. GI oncology services have been consulted. Potassium and magnesium replacement protocol. Anti-emetics ordered. Patient denies chest pain or shortness breath. Patient denies nausea vomiting or diarrhea. Patient denies any urinary burning or frequency On 05/31/2019 patient is alert and oriented 3. Patient reports that she is feeling slightly improved today. Nausea has subsided. Electrolytes are improving. Amylase and lipase are trending down. Patient denies chest pain or shortness of breath. Patient denies nausea vomiting or diarrhea. Patient denies any urinary frequency On 06/01/2019 patient's alert and oriented 3. Patient reports that her nausea and vomiting has improved. Patient reports that she is still weak PT OT consulted. Amylase and lipase are trending down. Patient denies chest pain or shortness of breath. Patient denies nausea vomiting or diarrhea at this time. Patient denies any urinary burning or frequency Objective - Vital Signs Vital signs: Vital Signs Temp 98.2 F 06/01/19 07:06 Pulse 90 06/01/19 11:23 Resp 16 06/01/19 07:06 BP 171/80 06/01/19 07:06 Pulse Ox 97 06/01/19 07:06 Intake & Output 05/31/19 06/01/19 06/01/19 18:59 06:59 18:59 Intake Total 3600 1740 Balance 3600 1740 Weight 49.895 kg Intake: Intake, IV Titration 1200 900 Amount Sodium Chloride 0.9% 1, 1200 900 000 ml @ 100 mls/hr IV . Q10H [facility] Rx#:[id number] Oral 2400 840 Other: Voiding Method Toilet Toilet Toilet # Voids 2 1 - Exam Head normocephalic Neck supple Lungs clear to auscultation bilaterally no wheezing or crackles Heart regular rate and rhythm S1-S2, no rub or gallop Abdomen is soft nontender nondistended positive bowel sounds no hepatosplenomegaly Extremities no edema Neuro alert and orientated to 3 - Labs CBC & Chem 7: 06/01/19 06:58 06/01/19 06:58 Labs: Abnormal Lab Results - Last 24 Hours (Table) 05/31/19 05/31/19 06/01/19 Range/Units 07:52 16:58 06:58 WBC 12.9 H (3.8-10.6) k/uL RBC 3.27 L 3.10 L (3.80-5.40) m/uL Hgb 11.2 L 10.5 L (11.4-16.0) gm/dL Hct 33.7 L 31.5 L (34.0-46.0) % MCV 103.0 H 101.6 H (80.0-100.0) fL Plt Count 82 L 75 L (150-450) k/uL Neutrophils # 11.4 H (1.3-7.7) k/uL Lymphocytes # 0.7 L (1.0-4.8) k/uL Lymphocytes # (Manual) 0.39 L (1.0-4.8) k/uL Chloride (98-107) mmol/L BUN (7-17) mg/dL Creatinine (0.52-1.04) mg/dL POC Glucose (mg/dL) 110 H (75-99) mg/dL Calcium (8.4-10.2) mg/dL Magnesium (1.6-2.3) mg/dL AST (14-36) U/L Total Protein (6.3-8.2) g/dL Albumin (3.5-5.0) g/dL Lipase (23-300) U/L 06/01/19 06/01/19 Range/Units 06:58 10:54 WBC (3.8-10.6) k/uL RBC (3.80-5.40) m/uL Hgb (11.4-16.0) gm/dL Hct (34.0-46.0) % MCV (80.0-100.0) fL Plt Count (150-450) k/uL Neutrophils # (1.3-7.7) k/uL Lymphocytes # (1.0-4.8) k/uL Lymphocytes # (Manual) (1.0-4.8) k/uL Chloride 113 H (98-107) mmol/L BUN <2 L (7-17) mg/dL Creatinine 0.45 L (0.52-1.04) mg/dL POC Glucose (mg/dL) 102 H (75-99) mg/dL Calcium 7.6 L (8.4-10.2) mg/dL Magnesium 1.4 L (1.6-2.3) mg/dL AST 50 H (14-36) U/L Total Protein 5.4 L (6.3-8.2) g/dL Albumin 2.6 L (3.5-5.0) g/dL Lipase 359 H (23-300) U/L Microbiology - Last 24 Hours (Table) 05/29/19 13:33 Blood Culture - Preliminary Blood No Growth after 48 hours Assessment and Plan Assessment: 1. Acute pancreatitis. Amylase elevated at 116 lipase 736. Patient started clear liquid diet GI service is consulted. Discussed case with oncology services this could be secondary to patient's chemotherapy. Abdominal ultrasound completed showing unremarkable abdominal ultrasound visualized portions of liver are homogeneous. Amylase and lipase are trending down 2. Nausea and vomiting likely secondary to chemotherapy and acute pancreatitis. KUB x-ray completed showing cannot exclude a 6 mm left ureteral calculus GI oncology service is consulted and anti-emetics ordered 3. Electrolyte imbalance secondary to nausea and vomiting and poor oral intake. Replacement protocol dietary service is consulted. Ensure shakes ordered 4. Carcinoma of the abdominal wall. Patient currently receiving chemotherapy. Oncology services are following 5. Leukocytosis. Initial white blood cell elevated at 17.0. Blood culture and stool for C. diff ordered. White blood cell 7.8 6. History of COPD. No exacerbation at this time 7. History of seizure disorder 8. History of rheumatoid arthritis 7. Ex-smoker 8. Pancytopenia secondary to chemotherapy 9. Peripheral neuropathy. Patient maintained on Neurontin 7. Oral thrush. Continue nystatin DVT prophylaxis SCDs due to thrombocytopenia. GI prophylaxis Protonix Oncology and GI services consulted PT OT consulted I performed an examination of the patient and discussed their management with th e Nurse Practitioner. I have reviewed the Nurse Practitioner's notes and agree with the documented findings and plan of care
[2019-06-01 17:16] LABS: Glucose,Whole Blood 103 mg/dL (75-99)
[2019-06-01] MEDS: DOCUSATE 100 MG CAP PO SCH (18:00)
[2019-06-01 20:38] LABS: Glucose,Whole Blood 79 mg/dL (75-99)
--- NOTE | 2019-06-01 22:39 | P.PN ---
Subjective Progress Note Date: 06/01/19 The patient reports significant improvement in her present to complain, specifically nausea, vomiting and abdominal pain. Bowel movements are also improved. She is tolerating a diet. She was however quite tearful and upset, and is complaining that she allegedly did not get her pain medication on time Objective - Vital Signs Vital signs: Vital Signs Temp 98.3 F 06/01/19 20:32 Pulse 92 06/01/19 20:58 Resp 18 06/01/19 20:32 BP 135/81 06/01/19 20:32 Pulse Ox 97 06/01/19 20:32 Intake & Output 06/01/19 06/01/19 06/02/19 06:59 18:59 06:59 Intake Total 1740 Balance 1740 Intake: Intake, IV Titration 900 Amount Sodium Chloride 0.9% 1, 900 000 ml @ 100 mls/hr IV . Q10H [facility] Rx#:[id number] Oral 840 Other: Voiding Method Toilet Toilet # Voids 1 2 - Constitutional General appearance: Present: mild distress - EENT Eyes: Present: EOMI, PERRLA ENT: Present: hearing grossly normal, normal oropharynx - Respiratory Respiratory: bilateral: CTA - Cardiovascular Rhythm: regular Heart sounds: normal: S1, S2 - Gastrointestinal General gastrointestinal: Present: normal bowel sounds, soft - Integumentary Integumentary: Present: normal - Neurologic Neurologic: Present: CNII-XII intact - Musculoskeletal Musculoskeletal: Present: generalized weakness, strength equal bilaterally - Psychiatric Psychiatric: Present: A&O x's 3 - Labs CBC & Chem 7: 06/01/19 06:58 06/01/19 06:58 Labs: Abnormal Lab Results - Last 24 Hours (Table) 06/01/19 06/01/19 06/01/19 Range/Units 06:58 06:58 10:54 RBC 3.10 L (3.80-5.40) m/uL Hgb 10.5 L (11.4-16.0) gm/dL Hct 31.5 L (34.0-46.0) % MCV 101.6 H (80.0-100.0) fL Plt Count 75 L (150-450) k/uL Lymphocytes # (Manual) 0.39 L (1.0-4.8) k/uL Chloride 113 H (98-107) mmol/L BUN <2 L (7-17) mg/dL Creatinine 0.45 L (0.52-1.04) mg/dL POC Glucose (mg/dL) 102 H (75-99) mg/dL Calcium 7.6 L (8.4-10.2) mg/dL Magnesium 1.4 L (1.6-2.3) mg/dL AST 50 H (14-36) U/L Total Protein 5.4 L (6.3-8.2) g/dL Albumin 2.6 L (3.5-5.0) g/dL Lipase 359 H (23-300) U/L 06/01/19 Range/Units 17:15 RBC (3.80-5.40) m/uL Hgb (11.4-16.0) gm/dL Hct (34.0-46.0) % MCV (80.0-100.0) fL Plt Count (150-450) k/uL Lymphocytes # (Manual) (1.0-4.8) k/uL Chloride (98-107) mmol/L BUN (7-17) mg/dL Creatinine (0.52-1.04) mg/dL POC Glucose (mg/dL) 103 H (75-99) mg/dL Calcium (8.4-10.2) mg/dL Magnesium (1.6-2.3) mg/dL AST (14-36) U/L Total Protein (6.3-8.2) g/dL Albumin (3.5-5.0) g/dL Lipase (23-300) U/L Microbiology - Last 24 Hours (Table) 05/29/19 13:33 Blood Culture - Preliminary Blood No Growth after 72 hours Assessment and Plan (1) Elevated lipase Narrative/Plan: This abnormality, and her symptoms indicated that the patient may have had some pancreatitis. She was seen by GI. They felt that while pancreatitis could not be ruled out, elevation of this level was somewhat nonspecific. Ultrasound abdomen showed no evidence of any obstruction. The patient is improved in terms of her symptoms and diet will be advanced as tolerated Current Visit: Yes Status: Acute Code(s): R74.8 - ABNORMAL LEVELS OF OTHER SERUM ENZYMES SNOMED Code(s): 485346125 (2) Chemotherapy induced nausea and vomiting Narrative/Plan: It is not clear if her symptoms are directly due to chemotherapy effect, or are due to possibly pancreatitis induced by chemotherapy. In any case she has improved significantly with hydration and supportive care. We will communicate her current events to her treating oncologist Dr. Sheppard Current Visit: Yes Status: Acute Code(s): R11.2 - NAUSEA WITH VOMITING, UNSPECIFIED; T45.1X5A - ADVERSE EFFECT OF ANTINEOPLASTIC AND IMMUNOSUP DRUGS, INIT SNOMED Code(s): 04377361 (3) Cancer of sigmoid colon Narrative/Plan: The patient is status post 2 cycles of chemotherapy. She will resume treatment after resolution of her acute situation. Decision as to treatment regimen will be made by Dr. Sheppard in the outpatient setting. Current Visit: No Status: Chronic Priority: High Code(s): C18.7 - MALIGNANT NEOPLASM OF SIGMOID COLON SNOMED Code(s): 309645927
[2019-06-02] MEDS: ONDANSETRON 4 MG/2 ML VIAL IVP SCH ×4 (00:01→18:04)
[2019-06-02] MEDS: SODIUM CHLORIDE 0.9% 1,000 ML IV SCH ×2 (00:01→18:01)
[2019-06-02 00:10] LABS: Glucose,Whole Blood 80 mg/dL (75-99)
[2019-06-02] MEDS: ALBUTEROL NEBULIZED 2.5 MG/3 ML INHALATION PRN (02:57)
[2019-06-02] MEDS: HYDROcodone/APAP 5-325MG 1 EACH TAB PO PRN ×4 (03:39→21:45)
[2019-06-02 06:53] LABS: Glucose,Whole Blood 84 mg/dL (75-99)
[2019-06-02] MEDS: ALBUTEROL NEBULIZED 2.5 MG/3 ML INHALATION SCH ×4 (08:08→20:14)
[2019-06-02] MEDS: DOCUSATE 100 MG CAP PO SCH ×2 (08:28→21:45)
[2019-06-02] MEDS: PANTOPRAZOLE 40 MG/10 ML VIAL IVP SCH ×2 (08:28→21:44)
[2019-06-02] MEDS: NICOTINE 21MG/24HR PATCH TRANSDERM SCH (08:28)
[2019-06-02] MEDS: GABAPENTIN 400 MG CAP PO SCH ×3 (08:28→21:45)
[2019-06-02] MEDS: NYSTATIN 100,000 UNIT/ML SUSP 500,000 UNIT/5 ML CUP PO SCH ×4 (08:34→21:44)
[2019-06-02 08:42] LABS: Basophils % (A) 0 %; Eosinophils # (A) 0.3 k/uL (0-0.7); Eosinophils % (A) 4 %; HCT 31.1 % (34.0-46.0); HGB 10.3 gm/dL (11.4-16.0); Lymphocytes # (A) 0.7 k/uL (1.0-4.8); Lymphocytes % (A) 8 %; MCH 33.2 pg (25.0-35.0); MCHC 33.2 g/dL (31.0-37.0); MCV 100.2 fL (80.0-100.0); Macrocytosis Slight; Mean Platelet Volume 7.7; Monocytes # (A) 0.6 k/uL (0-1.0); Monocytes % (A) 7 %; Neutrophils # (A) 6.4 k/uL (1.3-7.7); Neutrophils % (A) 78 %; WBC 8.2 k/uL (3.8-10.6)
[2019-06-02 08:54] LABS: Platelet Count 79 k/uL (150-450)
[2019-06-02 09:20] LABS: ALT 33 U/L (9-52); AST 41 U/L (14-36); African American GFR (CKD) >90 (>60 ml/min/1.73 sqM); Albumin 2.7 g/dL (3.5-5.0); Alkaline Phosphatase 126 U/L (38-126); Amylase 48 U/L (30-110); Anion Gap 5 mmol/L; Blood Urea Nitrogen <2 mg/dL (7-17); Calcium 7.7 mg/dL (8.4-10.2); Carbon Dioxide 28 mmol/L (22-30); Chloride 110 mmol/L (98-107); Glucose 92 mg/dL (74-99); Magnesium 1.3 mg/dL (1.6-2.3); Sodium 143 mmol/L (137-145); Total Bilirubin 0.3 mg/dL (0.2-1.3); Total Protein 5.4 g/dL (6.3-8.2)
[2019-06-02 09:29] LABS: Potassium 2.7 mmol/L (3.5-5.1)
[2019-06-02] MEDS ORDERED: Magnesium Replacement Protocol 1 EACH MISC MISCELLANE PRN (09:41)
[2019-06-02] MEDS ORDERED: Potassium Replacement Protocol 1 EACH MISC MISCELLANE PRN (09:42)
[2019-06-02 11:38] LABS: Glucose,Whole Blood 107 mg/dL (75-99)
[2019-06-02] MEDS: MAGNESIUM SULFATE-D5W PMX 1 GM in DEXTROSE/WATER 1 100ML.BAG IVPB SCH ×3 (11:46→17:58)
[2019-06-02] MEDS: POTASSIUM CHLORIDE 20 MEQ in WATER FOR INJECTION 1 100ML.BAG IVPB SCH ×3 (14:02→21:46)
--- NOTE | 2019-06-02 14:34 | P.PN ---
Subjective Progress Note Date: 06/02/19 This is a 73-year-old who presents with complaints of nausea and vomiting over the past few days. Patient reports that she received chemotherapy and pump removal last and since then has had increased nausea and vomiting patient reports that her oral intake has been low. Patient denies constipation or diarrhea. Patient denies fevers. Patient does have a known past medical history of abdominal wall cancer, asthma, COPD, DVT, eye disorder, liver disease, pneumonia, rheumatoid arthritis, seizure disorder and ex-smoker. KUB x-ray completed showing I cannot exclude a 6 mm left ureter calculus. Chest x- ray completed showing no active intrathoracic disease. correlate for COPD. Patient amylase and lipase elevated at 116 and 736. GI oncology services have been consulted. Potassium and magnesium replacement protocol. Anti-emetics ordered. Patient denies chest pain or shortness breath. Patient denies nausea vomiting or diarrhea. Patient denies any urinary burning or frequency On 05/31/2019 patient is alert and oriented 3. Patient reports that she is feeling slightly improved today. Nausea has subsided. Electrolytes are improving. Amylase and lipase are trending down. Patient denies chest pain or shortness of breath. Patient denies nausea vomiting or diarrhea. Patient denies any urinary frequency On 06/01/2019 patient's alert and oriented 3. Patient reports that her nausea and vomiting has improved. Patient reports that she is still weak PT OT consulted. Amylase and lipase are trending down. Patient denies chest pain or shortness of breath. Patient denies nausea vomiting or diarrhea at this time. Patient denies any urinary burning or frequency On 06/02/2019 patient's alert and oriented 3. Patient's potassium critically low at 2.7 mag low at 1.3. Will replace per protocol. Repeat levels will be ordered. Patient is still weak but improving. Anticipate discharge in the next 24-48 hours. Patient denies chest pain or shortness of breath. Patient denies nausea vomiting or diarrhea. Patient denies any urinary burning or frequency. Patient managed on Tigan by mouth per GI recommendation for nausea Objective - Vital Signs Vital signs: Vital Signs Temp 97.6 F 06/02/19 11:45 Pulse 86 06/02/19 12:16 Resp 18 06/02/19 11:45 BP 144/90 06/02/19 11:45 Pulse Ox 97 06/02/19 11:45 Intake & Output 06/01/19 06/02/19 06/02/19 18:59 06:59 18:59 Intake Total 1100 Balance 1100 Intake: Intake, IV Titration 1100 Amount Sodium Chloride 0.9% 1, 1100 000 ml @ 100 mls/hr IV . Q10H [facility] Rx#:[id number] Other: Voiding Method Toilet Toilet # Voids 2 3 - Exam Head normocephalic Neck supple Lungs clear to auscultation bilaterally no wheezing or crackles Heart regular rate and rhythm S1-S2, no rub or gallop Abdomen is soft nontender nondistended positive bowel sounds no hepatosplenomegaly Extremities no edema Neuro alert and orientated to 3 - Labs CBC & Chem 7: 06/02/19 08:15 06/02/19 08:15 Labs: Abnormal Lab Results - Last 24 Hours (Table) 06/01/19 06/02/19 06/02/19 Range/Units 17:15 08:15 08:15 RBC 3.10 L (3.80-5.40) m/uL Hgb 10.3 L (11.4-16.0) gm/dL Hct 31.1 L (34.0-46.0) % MCV 100.2 H (80.0-100.0) fL Plt Count 79 L (150-450) k/uL Lymphocytes # 0.7 L (1.0-4.8) k/uL Potassium 2.7 L* (3.5-5.1) mmol/L Chloride 110 H (98-107) mmol/L BUN <2 L (7-17) mg/dL Creatinine 0.48 L (0.52-1.04) mg/dL POC Glucose (mg/dL) 103 H (75-99) mg/dL Calcium 7.7 L (8.4-10.2) mg/dL Magnesium 1.3 L (1.6-2.3) mg/dL AST 41 H (14-36) U/L Total Protein 5.4 L (6.3-8.2) g/dL Albumin 2.7 L (3.5-5.0) g/dL Lipase 397 H (23-300) U/L 06/02/19 Range/Units 11:37 RBC (3.80-5.40) m/uL Hgb (11.4-16.0) gm/dL Hct (34.0-46.0) % MCV (80.0-100.0) fL Plt Count (150-450) k/uL Lymphocytes # (1.0-4.8) k/uL Potassium (3.5-5.1) mmol/L Chloride (98-107) mmol/L BUN (7-17) mg/dL Creatinine (0.52-1.04) mg/dL POC Glucose (mg/dL) 107 H (75-99) mg/dL Calcium (8.4-10.2) mg/dL Magnesium (1.6-2.3) mg/dL AST (14-36) U/L Total Protein (6.3-8.2) g/dL Albumin (3.5-5.0) g/dL Lipase (23-300) U/L Microbiology - Last 24 Hours (Table) 05/29/19 13:33 Blood Culture - Preliminary Blood No Growth after 72 hours Assessment and Plan Assessment: 1. Acute pancreatitis. Amylase elevated at 116 lipase 736. Patient started clear liquid diet GI service is consulted. Discussed case with oncology services this could be secondary to patient's chemotherapy. Abdominal ultrasound completed showing unremarkable abdominal ultrasound visualized portions of liver are homogeneous. Amylase and lipase are trending down 2. Nausea and vomiting likely secondary to chemotherapy and acute pancreatitis. KUB x-ray completed showing cannot exclude a 6 mm left ureteral calculus GI oncology service is consulted and anti-emetics ordered 3. Electrolyte imbalance secondary to nausea and vomiting and poor oral intake. Replacement protocol dietary service is consulted. Ensure shakes ordered. Continue to replace per protocol 4. Carcinoma of the abdominal wall. Patient currently receiving chemotherapy. Oncology services are following 5. Leukocytosis. Initial white blood cell elevated at 17.0. Blood culture and stool for C. diff ordered. White blood cell 7.8 6. History of COPD. No exacerbation at this time 7. History of seizure disorder 8. History of rheumatoid arthritis 7. Ex-smoker 8. Pancytopenia secondary to chemotherapy 9. Peripheral neuropathy. Patient maintained on Neurontin 7. Oral thrush. Continue nystatin DVT prophylaxis SCDs due to thrombocytopenia. GI prophylaxis Protonix Oncology and GI services consulted PT OT consulted I performed an examination of the patient and discussed their management with the Nurse Practitioner. I have reviewed the Nurse Practitioner's notes and agree with the documented findings and plan of care
[2019-06-02 17:22] LABS: Glucose,Whole Blood 103 mg/dL (75-99)
[2019-06-02] MEDS: ACETAMINOPHEN TAB 325 MG TAB PO PRN (18:04)
[2019-06-02 19:59] LABS: Glucose,Whole Blood 105 mg/dL (75-99)
[2019-06-03] MEDS: ONDANSETRON 4 MG/2 ML VIAL IVP SCH ×5 (00:52→23:45)
[2019-06-03] MEDS: SODIUM CHLORIDE 0.9% 1,000 ML IV SCH ×4 (00:56→16:05)
[2019-06-03] MEDS: ACETAMINOPHEN TAB 325 MG TAB PO PRN ×3 (02:22→20:11)
[2019-06-03] MEDS ORDERED: Potassium Replacement Protocol 1 EACH MISC MISCELLANE PRN ×5 (02:38→13:56)
[2019-06-03] MEDS: POTASSIUM CHLORIDE ER 20 MEQ TAB.ER PO SCH ×5 (03:05→15:17)
[2019-06-03] MEDS: HYDROcodone/APAP 5-325MG 1 EACH TAB PO PRN ×4 (04:59→23:46)
[2019-06-03 07:16] LABS: Glucose,Whole Blood 90 mg/dL (75-99)
[2019-06-03 07:54] LABS: Basophils % (A) 0 %; Eosinophils # (A) 0.2 k/uL (0-0.7); Eosinophils % (A) 3 %; HCT 29.4 % (34.0-46.0); HGB 9.7 gm/dL (11.4-16.0); Lymphocytes # (A) 0.6 k/uL (1.0-4.8); Lymphocytes % (A) 7 %; MCH 33.7 pg (25.0-35.0); MCHC 33.1 g/dL (31.0-37.0); Macrocytosis Slight; Mean Platelet Volume 7.1; Monocytes # (A) 0.6 k/uL (0-1.0); Monocytes % (A) 8 %; Neutrophils # (A) 6.6 k/uL (1.3-7.7); Neutrophils % (A) 79 %; RBC 2.88 m/uL (3.80-5.40); RDW 15.3 % (11.5-15.5); WBC 8.3 k/uL (3.8-10.6)
[2019-06-03 07:57] LABS: Platelet Count 88 k/uL (150-450)
[2019-06-03 08:06] LABS: ALT 29 U/L (9-52); AST 39 U/L (14-36); African American GFR (CKD) >90 (>60 ml/min/1.73 sqM); Albumin 2.4 g/dL (3.5-5.0); Alkaline Phosphatase 131 U/L (38-126); Amylase 31 U/L (30-110); Anion Gap 4 mmol/L; Blood Urea Nitrogen <2 mg/dL (7-17); Calcium 7.7 mg/dL (8.4-10.2); Carbon Dioxide 26 mmol/L (22-30); Chloride 112 mmol/L (98-107); Glucose 85 mg/dL (74-99); Magnesium 1.5 mg/dL (1.6-2.3); Potassium 3.1 mmol/L (3.5-5.1); Sodium 142 mmol/L (137-145); Total Bilirubin 0.3 mg/dL (0.2-1.3); Total Protein 5.1 g/dL (6.3-8.2)
[2019-06-03] MEDS: ALBUTEROL NEBULIZED 2.5 MG/3 ML INHALATION SCH ×4 (08:18→20:06)
[2019-06-03] MEDS: GABAPENTIN 400 MG CAP PO SCH ×3 (08:31→21:15)
[2019-06-03] MEDS: NYSTATIN 100,000 UNIT/ML SUSP 500,000 UNIT/5 ML CUP PO SCH ×4 (08:31→21:15)
[2019-06-03] MEDS: DOCUSATE 100 MG CAP PO SCH ×2 (08:31→20:04)
[2019-06-03] MEDS: NICOTINE 21MG/24HR PATCH TRANSDERM SCH (08:31)
[2019-06-03] MEDS: PANTOPRAZOLE 40 MG/10 ML VIAL IVP SCH (08:31)
[2019-06-03] MEDS ORDERED: Magnesium Replacement Protocol 1 EACH MISC MISCELLANE PRN (08:43)
[2019-06-03] MEDS ORDERED: POTASSIUM CHLORIDE 20 MEQ in WATER FOR INJECTION 1 100ML.BAG IVPB SCH (09:00)
[2019-06-03] MEDS: MAGNESIUM SULFATE-D5W PMX 1 GM in DEXTROSE/WATER 1 100ML.BAG IVPB SCH ×2 (09:36→10:55)
[2019-06-03 11:35] LABS: Glucose,Whole Blood 110 mg/dL (75-99)
--- NOTE | 2019-06-03 12:00 | P.PN ---
<Syeda Rice P - Last Filed: 06/03/19 11:58> Subjective Progress Note Date: 06/03/19 This is a 73-year-old who presents with complaints of nausea and vomiting over the past few days. Patient reports that she received chemotherapy and pump removal last and since then has had increased nausea and vomiting pa genont reports that her oral intake has been low. Patient denies constipation or diarrhea. Patient denies fevers. Patient does have a known past medical history of abdominal wall cancer, asthma, COPD, DVT, eye disorder, liver disease, pneumonia, rheumatoid arthritis, seizure disorder and ex-smoker. KUB x-ray completed showing I cannot exclude a 6 mm left ureter calculus. Chest x- ray completed showing no active intrathoracic disease. correlate for COPD. Patient amylase and lipase elevated at 116 and 736. GI oncology services have been consulted. Potassium and magnesium replacement protocol. Anti-emetics ordered. Patient denies chest pain or shortness breath. Patient denies nausea vomiting or diarrhea. Patient denies any urinary burning or frequency On 05/31/2019 patient is alert and oriented 3. Patient reports that she is feeling slightly improved today. Nausea has subsided. Electrolytes are improving. Amylase and lipase are trending down. Patient denies chest pain or shortness of breath. Patient denies nausea vomiting or diarrhea. Patient denies any urinary frequency On 06/01/2019 patient's alert and oriented 3. Patient reports that her nausea and vomiting has improved. Patient reports that she is still weak PT OT consulted. Amylase and lipase are trending down. Patient denies chest pain or shortness of breath. Patient denies nausea vomiting or diarrhea at this time. Patient denies any urinary burning or frequency On 06/02/2019 patient's alert and oriented 3. Patient's potassium critically low at 2.7 mag low at 1.3. Will replace per protocol. Repeat levels will be ordered. Patient is still weak but improving. Anticipate discharge in the next 24-48 hours. Patient denies chest pain or shortness of breath. Patient denies nausea vomiting or diarrhea. Patient denies any urinary burning or frequency. Patient managed on Tigan by mouth per GI recommendation for nausea On 06/03/2019 patient's alert and oriented 3. Electrolytes remain low replace per protocol. Per cardiology services hospice consult has been placed. Patient states she does not want any further chemotherapy requesting hospice consult. Patient remains weak. Patient denies chest pain or shortness of breath. Patient denies nausea vomiting or diarrhea. Patient denies any urinary burning or frequency Objective - Vital Signs Vital signs: Vital Signs Temp 99 F 06/03/19 05:00 Pulse 84 06/03/19 08:51 Resp 18 06/03/19 05:00 BP 155/89 06/03/19 05:00 Pulse Ox 98 06/03/19 05:00 Intake & Output 06/02/19 06/03/19 06/03/19 18:59 06:59 18:59 Intake Total 800 1020 Balance 800 1020 Intake: Intake, IV Titration 800 900 Amount Potassium Chloride 20 meq 100 In Water For Injection 1 100ml.bag @ 50 mls/hr IVPB Q2H [facility] Rx#: [id number] Sodium Chloride 0.9% 1, 800 800 000 ml @ 100 mls/hr IV . Q10H [facility] Rx#:[id number] Oral 120 Other: Voiding Method Toilet Toilet # Voids 3 2 - Exam Head normocephalic Neck supple Lungs clear to auscultation bilaterally no wheezing or crackles Heart regular rate and rhythm S1-S2, no rub or gallop Abdomen is soft nontender nondistended positive bowel sounds no hepatosplenomegaly Extremities no edema Neuro alert and orientated to 3 - Labs CBC & Chem 7: 06/03/19 07:09 06/03/19 07:09 Labs: Abnormal Lab Results - Last 24 Hours (Table) 06/02/19 06/02/19 06/02/19 Range/Units 14:52 17:20 19:57 RBC (3.80-5.40) m/uL Hgb (11.4-16.0) gm/dL Hct (34.0-46.0) % MCV (80.0-100.0) fL Plt Count (150-450) k/uL Lymphocytes # (1.0-4.8) k/uL Potassium 2.9 L (3.5-5.1) mmol/L Chloride (98-107) mmol/L BUN (7-17) mg/dL Creatinine (0.52-1.04) mg/dL POC Glucose (mg/dL) 103 H 105 H (75-99) mg/dL Calcium (8.4-10.2) mg/dL Magnesium (1.6-2.3) mg/dL AST (14-36) U/L Alkaline Phosphatase (38-126) U/L Total Protein (6.3-8.2) g/dL Albumin (3.5-5.0) g/dL Lipase (23-300) U/L 06/03/19 06/03/19 06/03/19 Range/Units 01:48 07:09 07:09 RBC 2.88 L (3.80-5.40) m/uL Hgb 9.7 L (11.4-16.0) gm/dL Hct 29.4 L (34.0-46.0) % MCV 102.0 H (80.0-100.0) fL Plt Count 88 L (150-450) k/uL Lymphocytes # 0.6 L (1.0-4.8) k/uL Potassium 3.2 L 3.1 L (3.5-5.1) mmol/L Chloride 112 H (98-107) mmol/L BUN <2 L (7-17) mg/dL Creatinine 0.48 L (0.52-1.04) mg/dL POC Glucose (mg/dL) (75-99) mg/dL Calcium 7.7 L (8.4-10.2) mg/dL Magnesium 1.5 L (1.6-2.3) mg/dL AST 39 H (14-36) U/L Alkaline Phosphatase 131 H (38-126) U/L Total Protein 5.1 L (6.3-8.2) g/dL Albumin 2.4 L (3.5-5.0) g/dL Lipase 406 H (23-300) U/L 06/03/19 Range/Units 11:33 RBC (3.80-5.40) m/uL Hgb (11.4-16.0) gm/dL Hct (34.0-46.0) % MCV (80.0-100.0) fL Plt Count (150-450) k/uL Lymphocytes # (1.0-4.8) k/uL Potassium (3.5-5.1) mmol/L Chloride (98-107) mmol/L BUN (7-17) mg/dL Creatinine (0.52-1.04) mg/dL POC Glucose (mg/dL) 110 H (75-99) mg/dL Calcium (8.4-10.2) mg/dL Magnesium (1.6-2.3) mg/dL AST (14-36) U/L Alkaline Phosphatase (38-126) U/L Total Protein (6.3-8.2) g/dL Albumin (3.5-5.0) g/dL Lipase (23-300) U/L Microbiology - Last 24 Hours (Table) 05/29/19 13:33 Blood Culture - Preliminary Blood No Growth after 96 hours Assessment and Plan Assessment: 1. Acute pancreatitis. Amylase elevated at 116 lipase 736. Patient started clear liquid diet GI service is consulted. Discussed case with oncology services this could be secondary to patient's chemotherapy. Abdominal ultrasound completed showing unremarkable abdominal ultrasound visualized portions of liver are homogeneous. Amylase and lipase has been ordered 2. Nausea and vomiting likely secondary to chemotherapy and acute pancreatitis. KUB x-ray completed showing cannot exclude a 6 mm left ureteral calculus GI oncology service is consulted and anti-emetics ordered 3. Electrolyte imbalance secondary to nausea and vomiting and poor oral intake. Replacement protocol dietary service is consulted. Ensure shakes ordered. Continue to replace per protocol 4. Carcinoma of the abdominal wall. Patient currently receiving chemotherapy. Oncology services are following 5. Leukocytosis. Initial white blood cell elevated at 17.0. Blood culture and stool for C. diff ordered. White blood cell 7.8 6. History of COPD. No exacerbation at this time 7. History of seizure disorder 8. History of rheumatoid arthritis 7. Ex-smoker 8. Pancytopenia secondary to chemotherapy 9. Peripheral neuropathy. Patient maintained on Neurontin 7. Oral thrush. Continue nystatin DVT prophylaxis SCDs due to thrombocytopenia. GI prophylaxis Protonix Oncology and GI services consulted PT OT consulted Hospice consult has been placed per patient request and oncology recommendation I performed an examination of the patient and discussed their management with the Nurse Practitioner. I have reviewed the Nurse Practitioner's notes and agree with the documented findings and plan of care <Bailey Mart - Last Filed: 06/10/19 10:23> Objective - Vital Signs Vital signs: Vital Signs Temp 98.5 F 06/04/19 11:54 Pulse 80 06/04/19 12:31 Resp 16 06/04/19 11:54 BP 141/67 06/04/19 11:54 Pulse Ox 95 06/04/19 11:54 - Labs CBC & Chem 7: 06/04/19 07:10 06/04/19 07:10 Assessment and Plan Assessment: Increased weakness continue physical therapy
--- NOTE | 2019-06-03 15:23 | P.PN ---
Subjective Progress Note Date: 06/03/19 Principal diagnosis: Panctreatitis, met colon cancer In follow-up today patient denies any uncontrolled symptoms. Patient states that she is not interested in any further treatment for her cancer. Patient states that she would like to control her symptoms and "let the cancer take me". Objective - Vital Signs Vital signs: Vital Signs Temp 97.9 F 06/03/19 12:17 Pulse 91 06/03/19 12:17 Resp 20 06/03/19 12:17 BP 172/92 06/03/19 12:17 Pulse Ox 97 06/03/19 12:17 Intake & Output 06/02/19 06/03/19 06/03/19 18:59 06:59 18:59 Intake Total 800 1020 800 Balance 800 1020 800 Intake: Intake, IV Titration 800 900 800 Amount Magnesium Sulfate-D5w Pmx 200 1 gm In Dextrose/Water 1 100ml.bag @ 100 mls/hr IVPB Q1H [facility] Rx#: [id number] Potassium Chloride 20 meq 100 In Water For Injection 1 100ml.bag @ 50 mls/hr IVPB Q2H [facility] Rx#: [id number] Sodium Chloride 0.9% 1, 800 800 600 000 ml @ 100 mls/hr IV . Q10H [facility] Rx#:[id number] Oral 120 Other: Voiding Method Toilet Toilet # Voids 3 2 - Constitutional General appearance: Present: cooperative, no acute distress, thin - EENT Eyes: Present: anicteric sclerae, EOMI - Respiratory Details: Respirations even and unlabored - Cardiovascular Details: Skin warm and dry, radial pulses 2+ Rhythm: regular - Peripheral edema leg Peripheral Edema: bilateral: None - Gastrointestinal General gastrointestinal: Present: soft - Neurologic Neurologic: Present: CNII-XII intact - Musculoskeletal Musculoskeletal: Present: strength equal bilaterally - Psychiatric Psychiatric: Present: A&O x's 3, appropriate affect, intact judgment & insight - Labs CBC & Chem 7: 06/03/19 07:09 06/03/19 13:11 Labs: Abnormal Lab Results - Last 24 Hours (Table) 06/02/19 06/02/19 06/03/19 Range/Units 17:20 19:57 01:48 RBC (3.80-5.40) m/uL Hgb (11.4-16.0) gm/dL Hct (34.0-46.0) % MCV (80.0-100.0) fL Plt Count (150-450) k/uL Lymphocytes # (1.0-4.8) k/uL Potassium 3.2 L (3.5-5.1) mmol/L Chloride (98-107) mmol/L BUN (7-17) mg/dL Creatinine (0.52-1.04) mg/dL POC Glucose (mg/dL) 103 H 105 H (75-99) mg/dL Calcium (8.4-10.2) mg/dL Magnesium (1.6-2.3) mg/dL AST (14-36) U/L Alkaline Phosphatase (38-126) U/L Total Protein (6.3-8.2) g/dL Albumin (3.5-5.0) g/dL Lipase (23-300) U/L 06/03/19 06/03/19 06/03/19 Range/Units 07:09 07:09 11:33 RBC 2.88 L (3.80-5.40) m/uL Hgb 9.7 L (11.4-16.0) gm/dL Hct 29.4 L (34.0-46.0) % MCV 102.0 H (80.0-100.0) fL Plt Count 88 L (150-450) k/uL Lymphocytes # 0.6 L (1.0-4.8) k/uL Potassium 3.1 L (3.5-5.1) mmol/L Chloride 112 H (98-107) mmol/L BUN <2 L (7-17) mg/dL Creatinine 0.48 L (0.52-1.04) mg/dL POC Glucose (mg/dL) 110 H (75-99) mg/dL Calcium 7.7 L (8.4-10.2) mg/dL Magnesium 1.5 L (1.6-2.3) mg/dL AST 39 H (14-36) U/L Alkaline Phosphatase 131 H (38-126) U/L Total Protein 5.1 L (6.3-8.2) g/dL Albumin 2.4 L (3.5-5.0) g/dL Lipase 406 H (23-300) U/L 06/03/19 Range/Units 13:11 RBC (3.80-5.40) m/uL Hgb (11.4-16.0) gm/dL Hct (34.0-46.0) % MCV (80.0-100.0) fL Plt Count (150-450) k/uL Lymphocytes # (1.0-4.8) k/uL Potassium 3.0 L (3.5-5.1) mmol/L Chloride (98-107) mmol/L BUN (7-17) mg/dL Creatinine (0.52-1.04) mg/dL POC Glucose (mg/dL) (75-99) mg/dL Calcium (8.4-10.2) mg/dL Magnesium (1.6-2.3) mg/dL AST (14-36) U/L Alkaline Phosphatase (38-126) U/L Total Protein (6.3-8.2) g/dL Albumin (3.5-5.0) g/dL Lipase (23-300) U/L Microbiology - Last 24 Hours (Table) 05/29/19 13:33 Blood Culture - Preliminary Blood No Growth after 96 hours - Imaging and Cardiology US - abdomen: report reviewed Assessment and Plan (1) Elevated lipase Narrative/Plan: Patient's lipase is persistently elevated, slightly worse than yesterday, yesika ent is not complaining of any pain. She is tolerating a regular diet. Current Visit: Yes Status: Acute Priority: High Code(s): R74.8 - ABNORMAL LEVELS OF OTHER SERUM ENZYMES SNOMED Code(s): 970072734 (2) Cancer of sigmoid colon Narrative/Plan: Patient stated to me that she feels that all of her symptoms are related to ch emotherapy, she no longer wants to have any chemotherapy, even at a dose reduction or a new chemo. She stated wanting symptom management. We discussed palliative care/hospice. And is interested in some information. Case was discussed with child welfare caseworker. Consult placed for hospice. Patient has a follow-up appointment with Dr. Chowdhury next week, it is her choice if she wants to cancel that appointment or not. Told her that if she has any questions, concerns or wants further information about diagnosis, prognosis and treatment options that it may be a good idea for her to see him. Current Visit: No Status: Chronic Priority: High Code(s): C18.7 - MALIGNANT NEOPLASM OF SIGMOID COLON SNOMED Code(s): 716498546
[2019-06-03] MEDS: POTASSIUM CHLORIDE 20 MEQ in WATER FOR INJECTION 1 100ML.BAG IVPB SCH ×3 (16:04→23:58)
[2019-06-03] MEDS: PANTOPRAZOLE 40 MG TABLET PO SCH (20:11)
[2019-06-04] MEDS: POTASSIUM CHLORIDE 20 MEQ in WATER FOR INJECTION 1 100ML.BAG IVPB SCH (02:29)
[2019-06-04] MEDS: ACETAMINOPHEN TAB 325 MG TAB PO PRN ×2 (03:41→11:13)
[2019-06-04] MEDS: ALBUTEROL NEBULIZED 2.5 MG/3 ML INHALATION PRN (03:51)
[2019-06-04] MEDS: SODIUM CHLORIDE 0.9% 1,000 ML IV SCH ×2 (05:35→12:20)
[2019-06-04] MEDS: ONDANSETRON 4 MG/2 ML VIAL IVP SCH ×2 (05:35→11:41)
[2019-06-04 07:21] LABS: Basophils % (A) 0 %; Eosinophils # (A) 0.2 k/uL (0-0.7); Eosinophils % (A) 2 %; HCT 31.2 % (34.0-46.0); HGB 10.3 gm/dL (11.4-16.0); Lymphocytes # (A) 0.7 k/uL (1.0-4.8); Lymphocytes % (A) 7 %; MCH 33.7 pg (25.0-35.0); MCHC 33.1 g/dL (31.0-37.0); MCV 101.9 fL (80.0-100.0); Macrocytosis Slight; Mean Platelet Volume 6.9; Monocytes # (A) 0.5 k/uL (0-1.0); Monocytes % (A) 5 %; Neutrophils # (A) 8.2 k/uL (1.3-7.7); Neutrophils % (A) 84 %; Platelet Count 105 k/uL (150-450); RBC 3.06 m/uL (3.80-5.40); RDW 15.3 % (11.5-15.5); WBC 9.7 k/uL (3.8-10.6)
[2019-06-04 07:42] LABS: ALT 32 U/L (9-52); AST 41 U/L (14-36); African American GFR (CKD) >90 (>60 ml/min/1.73 sqM); Albumin 2.7 g/dL (3.5-5.0); Alkaline Phosphatase 137 U/L (38-126); Anion Gap 4 mmol/L; Blood Urea Nitrogen <2 mg/dL (7-17); Calcium 8.2 mg/dL (8.4-10.2); Carbon Dioxide 27 mmol/L (22-30); Chloride 112 mmol/L (98-107); Glucose 74 mg/dL (74-99); Magnesium 1.4 mg/dL (1.6-2.3); Sodium 143 mmol/L (137-145); Total Bilirubin 0.3 mg/dL (0.2-1.3); Total Protein 5.5 g/dL (6.3-8.2)
[2019-06-04] MEDS: ALBUTEROL NEBULIZED 2.5 MG/3 ML INHALATION SCH ×3 (08:20→16:10)
[2019-06-04] MEDS ORDERED: Magnesium Replacement Protocol 1 EACH MISC MISCELLANE PRN (08:30)
[2019-06-04] MEDS ORDERED: ESCITALOPRAM 5 MG TAB PO SCH (09:00)
[2019-06-04] MEDS: NYSTATIN 100,000 UNIT/ML SUSP 500,000 UNIT/5 ML CUP PO SCH ×2 (09:30→14:35)
[2019-06-04] MEDS: PANTOPRAZOLE 40 MG TABLET PO SCH (09:30)
[2019-06-04] MEDS: NICOTINE 21MG/24HR PATCH TRANSDERM SCH (09:30)
[2019-06-04] MEDS: DOCUSATE 100 MG CAP PO SCH (09:31)
[2019-06-04] MEDS: HYDROcodone/APAP 5-325MG 1 EACH TAB PO PRN (09:31)
[2019-06-04] MEDS: GABAPENTIN 400 MG CAP PO SCH ×2 (09:31→15:30)
[2019-06-04] MEDS: MAGNESIUM SULFATE-D5W PMX 1 GM in DEXTROSE/WATER 1 100ML.BAG IVPB SCH ×3 (09:31→11:55)
[2019-06-04 11:55] VITALS: BP 141/67; RESP 16; TEMP 98.5
[2019-06-04 12:21] VITALS: PULSE 80
--- NOTE | 2019-06-04 14:56 | P.DS ---
<WilliamSyeda black P - Last Filed: 06/04/19 14:51> Providers Expected date of discharge: 06/04/19 Hospital Course: Discharge diagnosis 1. Acute pancreatitis. Amylase elevated at 116 lipase 736. Patient started clear liquid diet GI service is consulted. Discussed case with oncology services this could be secondary to patient's chemotherapy. Abdominal ultrasound completed showing unremarkable abdominal ultrasound visualized portions of liver are homogeneous. Amylase and lipase improving 2. Nausea and vomiting likely secondary to chemotherapy and acute pancreatitis. KUB x-ray completed showing cannot exclude a 6 mm left ureteral calculus GI oncology service is consulted and anti-emetics ordered. Patient will be DC'd on Tigan 3. Electrolyte imbalance secondary to nausea and vomiting and poor oral intake. Replacement protocol dietary service is consulted. Ensure shakes ordered. Continue to replace per protocol. Patient will be DC'd on potassium and magnesium supplement 4. Carcinoma of the abdominal wall. Patient currently receiving chemotherapy. Oncology services are following 5. Leukocytosis. Initial white blood cell elevated at 17.0. Blood culture and stool for C. diff ordered. White blood cell 7.8 6. History of COPD. No exacerbation at this time 7. History of seizure disorder 8. History of rheumatoid arthritis 7. Ex-smoker 8. Pancytopenia secondary to chemotherapy 9. Peripheral neuropathy. Patient maintained on Neurontin 7. Oral thrush. Continue nystatin 8. Depression. Patient started on Lexapro Hospital course This is a 73-year-old who presents with complaints of nausea and vomiting over the past few days. Patient reports that she received chemotherapy and pump removal last and since then has had increased nausea and vomiting patient reports that her oral intake has been low. Patient denies constipation or diarrhea. Patient denies fevers. Patient does have a known past medical history of abdominal wall cancer, asthma, COPD, DVT, eye disorder, liver di sease, pneumonia, rheumatoid arthritis, seizure disorder and ex-smoker. KUB x- ray completed showing I cannot exclude a 6 mm left ureter calculus. Chest x-ray completed showing no active intrathoracic disease. correlate for COPD. Patient amylase and lipase elevated at 116 and 736. GI oncology services have been consulted. Potassium and magnesium replacement protocol. Anti-emetics ordered. Patient denies chest pain or shortness breath. Patient denies nausea vomiting or diarrhea. Patient denies any urinary burning or frequency On 05/31/2019 patient is alert and oriented 3. Patient reports that she is feeling slightly improved today. Nausea has subsided. Electrolytes are improving. Amylase and lipase are trending down. Patient denies chest pain or shortness of breath. Patient denies nausea vomiting or diarrhea. Patient denies any urinary frequency On 06/01/2019 patient's alert and oriented 3. Patient reports that her nausea and vomiting has improved. Patient reports that she is still weak PT OT consulted. Amylase and lipase are trending down. Patient denies chest pain or shortness of breath. Patient denies nausea vomiting or diarrhea at this time. Patient denies any urinary burning or frequency On 06/02/2019 patient's alert and oriented 3. Patient's potassium critically low at 2.7 mag low at 1.3. Will replace per protocol. Repeat levels will be ordered. Patient is still weak but improving. Anticipate discharge in the next 24-48 hours. Patient denies chest pain or shortness of breath. Patient denies nausea vomiting or diarrhea. Patient denies any urinary burning or frequency. Patient managed on Tigan by mouth per GI recommendation for nausea On 06/03/2019 patient's alert and oriented 3. Electrolytes remain low replace per protocol. Per cardiology services hospice consult has been placed. Patient states she does not want any further chemotherapy requesting hospice consult. Patient remains weak. Patient denies chest pain or shortness of breath. Patient denies nausea vomiting or diarrhea. Patient denies any urinary burning or frequency On 06/04/2019 patient's alert and oriented 3. Potassium 4.0. Patient has decided to hold off on hospice at this time will be DC'd home and assess with [facility] oncology services for further plan of care. Patient will be DC'd home on potassium 20 mEq and magnesium. Patient also started on Lexapro. Patient will be DC'd on Tigan Zofran DC'd. Patient denies chest pain or shortness of breath. Patient denies nausea vomiting or diarrhea. Patient denies any urinary burning or frequency I performed an examination of the patient and discussed their management with the Nurse Practitioner. I have reviewed the Nurse Practitioner's notes and agree with the documented findings and plan of care Patient Condition at Discharge: Stable Plan - Discharge Summary New Discharge Prescriptions: New Escitalopram [Lexapro] 5 mg PO DAILY 30 Days #30 tab Gabapentin [Neurontin] 400 mg PO TID cap Trimethobenzamide [Tigan] 300 mg PO TID PRN 30 Days #90 cap PRN Reason: Nausea Potassium Chloride [K-Tab ER] 20 meq PO DAILY 30 Days #30 tablet.er Magnesium Oxide [Mag-Ox] 400 mg PO DAILY 30 Days #30 tablet Continue Omeprazole [PriLOSEC] 20 mg PO DAILY Nicotine 21Mg/24Hr Patch [Habitrol] 1 patch TRANSDERM DAILY #12 patch Albuterol Inhaler [Ventolin Hfa Inhaler] 1 - 2 puff INHALATION RT-Q6H PRN PRN Reason: Shortness Of Breath Ergocalciferol (Vitamin D2) [Vitamin D2] 50,000 unit PO SA Albuterol Nebulized [Ventolin Nebulized] 2.5 mg INHALATION RT-QID Ipratropium/Albuterol Sulfate [Combivent Respimat Inhaler] 1 puff INHALATION RT-QID PRN PRN Reason: Shortness Of Breath HYDROcodone/APAP 5-325MG [Orchard 5-325] 1 tab PO Q6HR PRN PRN Reason: Pain Nystatin 100,000 Unit/ml Susp [Mycostatin Oral Susp] 500,000 unit PO QID 7 Days #28 cup Cholecalciferol [Vitamin D3 (25 Mcg = 1000 Iu)] 5,000 unit PO DAILY Discontinued Ondansetron [Zofran] 4 mg PO Q8HR PRN PRN Reason: Nausea Doxycycline Hyclate [Vibramycin] 100 mg PO BID Discharge Medication List Omeprazole [PriLOSEC] 20 mg PO DAILY 05/06/14 [History] Nicotine 21Mg/24Hr Patch [Habitrol] 1 patch TRANSDERM DAILY #12 patch 05/13/17 [Rx] Albuterol Inhaler [Ventolin Hfa Inhaler] 1 - 2 puff INHALATION RT-Q6H PRN 02/10/18 [History] Ergocalciferol (Vitamin D2) [Vitamin D2] 50,000 unit PO SA 03/23/18 [History] Albuterol Nebulized [Ventolin Nebulized] 2.5 mg INHALATION RT-QID 02/15/19 [History] HYDROcodone/APAP 5-325MG [Orchard 5-325] 1 tab PO Q6HR PRN 05/06/19 [History] Ipratropium/Albuterol Sulfate [Combivent Respimat Inhaler] 1 puff INHALATION RT- QID PRN 05/06/19 [History] Nystatin 100,000 Unit/ml Susp [Mycostatin Oral Susp] 500,000 unit PO QID 7 Days #28 cup 05/11/19 [Rx] Cholecalciferol [Vitamin D3 (25 Mcg = 1000 Iu)] 5,000 unit PO DAILY 05/29/19 [History] Escitalopram [Lexapro] 5 mg PO DAILY 30 Days #30 tab 06/04/19 [Rx] Gabapentin [Neurontin] 400 mg PO TID cap 06/04/19 [Rx] Magnesium Oxide [Mag-Ox] 400 mg PO DAILY 30 Days #30 tablet 06/04/19 [Rx] Potassium Chloride [K-Tab ER] 20 meq PO DAILY 30 Days #30 tablet.er 06/04/19 [Rx] Trimethobenzamide [Tigan] 300 mg PO TID PRN 30 Days #90 cap 06/04/19 [Rx] Follow up Appointment(s)/Referral(s): Bailey Mart MD [Primary Care Provider] - 1-2 days (Patient to call Dr. Mart's office Friday morning to schedule follow up appointment. The office is closed at time of discharge.) Chris Chowdhury MD [STAFF PHYSICIAN] - 06/08/19 8:30 am Ambulatory/Diagnostic Orders: Comprehensive Metabolic Panel [LAB.AMB] Time Frame: 3 Days, Location: None Selected Patient Instructions/Handouts: Trimethobenzamide (By mouth), Potassium Chloride (By mouth), Escitalopram (By mouth), Magnesium Oxide (By mouth), Acute Nausea and Vomiting (DC), Hypomagnesemia (DC) Discharge Disposition: HOME SELF-CARE <Bailey Mart - Last Filed: 06/10/19 10:11> Providers Date of admission: 05/29/19 17:11 Attending physician: Bailey Mart Consults: 05/29/19 15:50 Consult Physician Stat Consulting Provider: Chris Chowdhury Consult Reason/Comments: Chemo, intractable nausea and vomiting Do you want consulting provider notified?: Yes, Notify in am Primary care physician: Bailey Mart [facility] Course: Patient feeling improved. Patient to follow up in office to discuss further plan of care
== END 2019-06-04 16:05 | disposition home health service (06) | DRG 438 ==
LOC: EC 12:02 → 3NMEDONC 17:11
PROVIDERS: ADMIT Internal Medicine; ATTEND Internal Medicine
DX: K85.90 Acute pancreatitis without necrosis or infection, unspecified (principal); D61.810 Antineoplastic chemotherapy induced pancytopenia; B37.0 Candidal stomatitis; C18.7 Malignant neoplasm of sigmoid colon; C79.89 Secondary malignant neoplasm of other specified sites; D69.59 Other secondary thrombocytopenia; E83.42 Hypomagnesemia; E86.0 Dehydration; E87.6 Hypokalemia; F32.9 Major depressive disorder, single episode, unspecified; G25.81 Restless legs syndrome; G40.909 Epilepsy, unspecified, not intractable, without status epilepticus; G62.9 Polyneuropathy, unspecified; J44.9 Chronic obstructive pulmonary disease, unspecified; M06.9 Rheumatoid arthritis, unspecified; T45.1X5A Adverse effect of antineoplastic and immunosuppressive drugs, initial encounter; Z80.0 Family history of malignant neoplasm of digestive organs; Z80.7 Family history of other malignant neoplasms of lymphoid, hematopoietic and related tissues; Z82.49 Family history of ischemic heart disease and other diseases of the circulatory system; Z83.3 Family history of diabetes mellitus; Z83.71 Family history of colonic polyps; Z86.72 Personal history of thrombophlebitis; Z87.442 Personal history of urinary calculi; Z87.891 Personal history of nicotine dependence; Z92.3 Personal history of irradiation
CPT/HCPCS: 36415; 71046; 74018; 76700; 80053; 81001; 82150; 82248; 83605; 83690; 83735; 84132; 84478; 85025; 87040; 94640; 96361; 96365; 96367; 96375; 96376; 99285

== ENCOUNTER 2019-10-10 07:58 | Emergency (ER) | payer MEDICARE, OTHER ==
[2019-10-10] MEDS ORDERED: SODIUM CHLORIDE 0.9% 1,000 ML IV STA ×2 (08:16→10:47)
[2019-10-10] MEDS ORDERED: LORazepam 2 MG/ML INJ IV STA (08:16)
[2019-10-10] MEDS ORDERED: ONDANSETRON 4 MG/2 ML VIAL IVP STA (08:16)
--- NOTE | 2019-10-10 08:26 | ED ---
General Adult HPI - General Chief complaint: Dizziness Stated complaint: Anxiety Time Seen by Provider: 10/10/19 08:02 Source: patient, EMS, RN notes reviewed, old records reviewed Mode of arrival: EMS Limitations: no limitations - History of Present Illness Initial comments: Patient is a 73-year-old female with history of colon cancer, currently not un dergoing chemoradiation. Patient elected not to this in the past few months. Patient presents today with complaints of dizziness, anxiety and shortness of breath. Chest complains of chronic abdominal pain and nausea. Patient reports that she does feel anxious, feels that she is unable to lay down as this causes worsening difficulty in breathing. Patient was given Zofran via EMS. She does not have any family most of her this time but she does have a close contact with friends who live in her apartment. - Related Data Home Medications Medication Instructions Recorded Confirmed Omeprazole [PriLOSEC] 20 mg PO DAILY 05/06/14 10/10/19 Albuterol Inhaler [Ventolin Hfa 1 puff INHALATION RT-BID 02/10/18 10/10/19 Inhaler] Ergocalciferol (Vitamin D2) 50,000 unit PO SA 03/23/18 10/10/19 [Vitamin D2] HYDROcodone/APAP 10-325MG [[place] 1 tab PO Q6H PRN 10/10/19 10/10/19 10-325] Ipratropium-Albuterol Nebulize 3 ml INHALATION RT-QID 10/10/19 10/10/19 [Duoneb 0.5 mg-3 mg/3 ml Soln] Lactulose 20 gm PO DAILY 10/10/19 10/10/19 Morphine Sulfate [Morphabond ER] 30 mg PO Q12H 10/10/19 10/10/19 Ondansetron [Zofran] 4 mg PO Q8H PRN 10/10/19 10/10/19 Vitamin B Complex 1 cap PO DAILY 10/10/19 10/10/19 Previous Rx's Medication Instructions Recorded Gabapentin [Neurontin] 400 mg PO TID cap 06/04/19 Magnesium Oxide [Mag-Ox] 400 mg PO DAILY 30 Days #30 tablet 06/04/19 Potassium Chloride [K-Tab ER] 20 meq PO DAILY 30 Days #30 06/04/19 tablet.er Allergies Allergy/AdvReac Type Severity Reaction Status Date / Time Penicillins Allergy Severe Swelling/Ra Verified 10/10/19 11:26 sh marijuana AdvReac seizures Verified 10/10/19 11:26 Review of Systems ROS Statement: Those systems with pertinent positive or pertinent negative responses have been documented in the HPI. ROS Other: All systems not noted in ROS Statement are negative. Past Medical History Past Medical History: Asthma, Cancer, COPD, Deep Vein Thrombosis (DVT), Eye Disorder, Liver Disease, Pneumonia, Rheumatoid Arthritis (RA), Seizure Disorder Additional Past Medical History / Comment(s): HX PLEURISY CHILD; HAS "COMPROMISED LUNGS," BRONCHITIS AND PNEUMONIA NUMEROUS TIMES. HX R PNEUMOTHORAX 30 YRS AGO. NUMEROUS FX, TEETH KNOCKED OUt, HX RLS. HX OF SEIZURES, HX Hepatitis C at 16 yrs of age. RT eye Glaucoma. thrombophlebitis x2, CA COLON, History of Any Multi-Drug Resistant Organisms: None Reported Past Surgical History: Bowel Resection, Tonsillectomy Additional Past Surgical History / Comment(s): Colonoscopy. KIDNEY STONE REMOVAL. bowel surgery due to CA Past Anesthesia/Blood Transfusion Reactions: No Reported Reaction Past Psychological History: No Psychological Hx Reported Smoking Status: Former smoker Past Alcohol Use History: Occasional Past Drug Use History: None Reported - Past Family History Father Family Medical History: No Reported History Mother Family Medical History: Cancer, Coronary Artery Disease (CAD), Diabetes Mellitus Additional Family Medical History / Comment(s): Colon cancer Daughter(s) Family Medical History: Cancer Additional Family Medical History / Comment(s): Hodgkins General Exam - General Exam Comments Initial Comments: 73-year-old female. Alert and oriented. Patient appears somewhat anxious. Generally thin and weak appearing. Limitations: no limitations General appearance: alert, in no apparent distress Head exam: Present: atraumatic, normocephalic, normal inspection Eye exam: Present: normal appearance, PERRL, EOMI. Absent: scleral icterus, conjunctival injection, periorbital swelling ENT exam: Present: normal exam, mucous membranes moist Neck exam: Present: normal inspection. Absent: tenderness, meningismus, lymphadenopathy Respiratory exam: Present: normal lung sounds bilaterally. Absent: respiratory distress, wheezes, rales, rhonchi, stridor Cardiovascular Exam: Present: regular rate, normal rhythm, normal heart sounds. Absent: systolic murmur, diastolic murmur, rubs, gallop, clicks GI/Abdominal exam: Present: soft, tenderness (Right abdominal tenderness, reports chronic), normal bowel sounds. Absent: distended, guarding, rebound, rigid Extremities exam: Present: normal inspection, full ROM, normal capillary refill. Absent: tenderness, pedal edema, joint swelling, calf tenderness Back exam: Present: normal inspection, full ROM. Absent: CVA tenderness (R), CVA tenderness (L), muscle spasm Neurological exam: Present: alert, oriented X3, CN II-XII intact Psychiatric exam: Present: normal affect, normal mood Skin exam: Present: warm, dry, intact, normal color. Absent: rash Course Vital Signs 10/10/19 10/10/19 08:01 11:16 Temperature 97.9 F 98.5 F Pulse Rate 101 H 87 Respiratory 22 18 Rate Blood Pressure 127/100 148/79 O2 Sat by Pulse 96 96 Oximetry Medical Decision Making - Medical Decision Making 73-year-old female presents emergency Department today with complaints of anxiety, dizziness, difficulty breathing, also relates chronic abdominal pain nausea and poor appetite. Patient was given IV fluids, Zofran and Ativan. She was able to rest comfortably afterwards and able to eat a sandwich and chips and drink. Patient reports after excitement her pain has diminished. Protuberant initial presentation labwork and workup was completed. Patient was noted to have a positive d-dimer, and CT chest was completed. This was nondiagnostic for pulmonary embolism. I discussed the findings with Patient and discussed recommended admission for V/Q scan or further testing. Discussed the concern that there is also more nodules in her lungs concern for worsening metastases. Patient states that she prefer to go home she is more comfortable at her home with her medications and friends and will be willing to sign AGAINST MEDICAL ADVICE. She understands her risks of leaving AGAINST MEDICAL ADVICE and possible . Patient was advised that she should follow-up with her primary care doctor. All questions were answered. - Lab Data Result diagrams: 10/10/19 08:50 10/10/19 08:50 Lab Results 10/10/19 10/10/19 10/10/19 Range/Units 08:50 08:50 08:50 WBC 3.2 L (3.8-10.6) k/uL RBC 4.44 (3.80-5.40) m/uL Hgb 14.3 (11.4-16.0) gm/dL Hct 43.7 (34.0-46.0) % MCV 98.4 (80.0-100.0) fL MCH 32.2 (25.0-35.0) pg MCHC 32.7 (31.0-37.0) g/dL RDW 13.7 (11.5-15.5) % Plt Count 158 (150-450) k/uL Neutrophils % 73 % Lymphocytes % 12 % Monocytes % 9 % Eosinophils % 3 % Basophils % 1 % Neutrophils # 2.3 (1.3-7.7) k/uL Lymphocytes # 0.4 L (1.0-4.8) k/uL Monocytes # 0.3 (0-1.0) k/uL Eosinophils # 0.1 (0-0.7) k/uL Basophils # 0.0 (0-0.2) k/uL PT 9.6 (9.0-12.0) sec INR 0.9 (<1.2) D-Dimer (<0.60) mg/L FEU Sodium 134 L (137-145) mmol/L Potassium 4.6 (3.5-5.1) mmol/L Chloride 103 (98-107) mmol/L Carbon Dioxide 23 (22-30) mmol/L Anion Gap 8 mmol/L BUN 9 (7-17) mg/dL Creatinine 0.57 (0.52-1.04) mg/dL Est GFR (CKD-EPI)AfAm >90 (>60 ml/min/1.73 sqM) Est GFR (CKD-EPI)NonAf >90 (>60 ml/min/1.73 sqM) Glucose 86 (74-99) mg/dL Plasma Lactic Acid Mauri (0.7-2.0) mmol/L Calcium 8.8 (8.4-10.2) mg/dL Magnesium 1.9 (1.6-2.3) mg/dL Total Bilirubin 0.4 (0.2-1.3) mg/dL AST 48 H (14-36) U/L ALT 16 (4-34) U/L Alkaline Phosphatase 135 H (38-126) U/L Troponin I (0.000-0.034) ng/mL NT-Pro-B Natriuret Pep pg/mL Total Protein 6.6 (6.3-8.2) g/dL Albumin 3.2 L (3.5-5.0) g/dL Lipase 244 (23-300) U/L Urine Color Urine Appearance (Clear) Urine pH (5.0-8.0) Ur Specific [place] (1.001-1.035) Urine Protein (Negative) Urine Glucose (UA) (Negative) Urine Ketones (Negative) Urine Blood (Negative) Urine Nitrite (Negative) Urine Bilirubin (Negative) Urine Urobilinogen (<2.0) mg/dL Ur Leukocyte Esterase (Negative) 10/10/19 10/10/19 10/10/19 Range/Units 08:50 08:50 08:50 WBC (3.8-10.6) k/uL RBC (3.80-5.40) m/uL Hgb (11.4-16.0) gm/dL Hct (34.0-46.0) % MCV (80.0-100.0) fL MCH (25.0-35.0) pg MCHC (31.0-37.0) g/dL RDW (11.5-15.5) % Plt Count (150-450) k/uL Neutrophils % % Lymphocytes % % Monocytes % % Eosinophils % % Basophils % % Neutrophils # (1.3-7.7) k/uL Lymphocytes # (1.0-4.8) k/uL Monocytes # (0-1.0) k/uL Eosinophils # (0-0.7) k/uL Basophils # (0-0.2) k/uL PT (9.0-12.0) sec INR (<1.2) D-Dimer (<0.60) mg/L FEU Sodium (137-145) mmol/L Potassium (3.5-5.1) mmol/L Chloride (98-107) mmol/L Carbon Dioxide (22-30) mmol/L Anion Gap mmol/L BUN (7-17) mg/dL Creatinine (0.52-1.04) mg/dL Est GFR (CKD-EPI)AfAm (>60 ml/min/1.73 sqM) Est GFR (CKD-EPI)NonAf (>60 ml/min/1.73 sqM) Glucose (74-99) mg/dL Plasma Lactic Acid Mauri 1.0 (0.7-2.0) mmol/L Calcium (8.4-10.2) mg/dL Magnesium (1.6-2.3) mg/dL Total Bilirubin (0.2-1.3) mg/dL AST (14-36) U/L ALT (4-34) U/L Alkaline Phosphatase (38-126) U/L Troponin I <0.012 (0.000-0.034) ng/mL NT-Pro-B Natriuret Pep 319 pg/mL Total Protein (6.3-8.2) g/dL Albumin (3.5-5.0) g/dL Lipase (23-300) U/L Urine Color Urine Appearance (Clear) Urine pH (5.0-8.0) Ur Specific [place] (1.001-1.035) Urine Protein (Negative) Urine Glucose (UA) (Negative) Urine Ketones (Negative) Urine Blood (Negative) Urine Nitrite (Negative) Urine Bilirubin (Negative) Urine Urobilinogen (<2.0) mg/dL Ur Leukocyte Esterase (Negative) 10/10/19 10/10/19 Range/Units 08:50 11:10 WBC (3.8-10.6) k/uL RBC (3.80-5.40) m/uL Hgb (11.4-16.0) gm/dL Hct (34.0-46.0) % MCV (80.0-100.0) fL MCH (25.0-35.0) pg MCHC (31.0-37.0) g/dL RDW (11.5-15.5) % Plt Count (150-450) k/uL Neutrophils % % Lymphocytes % % Monocytes % % Eosinophils % % Basophils % % Neutrophils # (1.3-7.7) k/uL Lymphocytes # (1.0-4.8) k/uL Monocytes # (0-1.0) k/uL Eosinophils # (0-0.7) k/uL Basophils # (0-0.2) k/uL PT (9.0-12.0) sec INR (<1.2) D-Dimer 1.28 H (<0.60) mg/L FEU Sodium (137-145) mmol/L Potassium (3.5-5.1) mmol/L Chloride (98-107) mmol/L Carbon Dioxide (22-30) mmol/L Anion Gap mmol/L BUN (7-17) mg/dL Creatinine (0.52-1.04) mg/dL Est GFR (CKD-EPI)AfAm (>60 ml/min/1.73 sqM) Est GFR (CKD-EPI)NonAf (>60 ml/min/1.73 sqM) Glucose (74-99) mg/dL Plasma Lactic Acid Mauri (0.7-2.0) mmol/L Calcium (8.4-10.2) mg/dL Magnesium (1.6-2.3) mg/dL Total Bilirubin (0.2-1.3) mg/dL AST (14-36) U/L ALT (4-34) U/L Alkaline Phosphatase (38-126) U/L Troponin I (0.000-0.034) ng/mL NT-Pro-B Natriuret Pep pg/mL Total Protein (6.3-8.2) g/dL Albumin (3.5-5.0) g/dL Lipase (23-300) U/L Urine Color Light Yellow Urine Appearance Clear (Clear) Urine pH 5.5 (5.0-8.0) Ur Specific [place] 1.023 (1.001-1.035) Urine Protein Negative (Negative) Urine Glucose (UA) Negative (Negative) Urine Ketones 1+ H (Negative) Urine Blood Negative (Negative) Urine Nitrite Negative (Negative) Urine Bilirubin Negative (Negative) Urine Urobilinogen <2.0 (<2.0) mg/dL Ur Leukocyte Esterase Negative (Negative) 10/10/19 08:26 EKG shows normal sinus rhythm with voltage QRS. Can't rule out anterior in farct. Abnormal EKG. Ventricular rate of 95 beats. Pulse 156 most seconds. Stressors and 60 ms. QT QTc is 362/454 ms. - Radiology Data Radiology results: report reviewed COPD shows nodule density underneath Mediport catheter of indeterminate etiology. CT shows numerous soft tissue calcifications are seen and noted on prior exam. Chronic or deformities. Degenerative changes of spine. There was no contrast and pulmonary artery is nondiagnostic for pulmonary embolus. Numerous calcifications and edema in the chest a metal findings from prior computed tomography scan. Slow pleural nodules are too small to characterize however they appear new from PET scan and metastases or and differential. Disposition Clinical Impression: Anxiety, Dizziness, Elevated d-dimer Disposition: Left Against Medical Advice Condition: Stable Instructions (If sedation given, give patient instructions): Generalized Anxiety Disorder (ED), Dizziness (ED) Additional Instructions: Patient advised to follow-up with your primary care physician. Return to emergency department if any alarming signs or symptoms occur. Is patient prescribed a controlled substance at d/c from ED?: No Referrals: Bailey Mart MD [Primary Care Provider] - 1-2 days Time of Disposition: 11:52
[2019-10-10 09:24] LABS: ALT 16 U/L (4-34); AST 48 U/L (14-36); African American GFR (CKD) >90 (>60 ml/min/1.73 sqM); Albumin 3.2 g/dL (3.5-5.0); Alkaline Phosphatase 135 U/L (38-126); Anion Gap 8 mmol/L; Blood Urea Nitrogen 9 mg/dL (7-17); Calcium 8.8 mg/dL (8.4-10.2); Carbon Dioxide 23 mmol/L (22-30); Chloride 103 mmol/L (98-107); Glucose 86 mg/dL (74-99); Magnesium 1.9 mg/dL (1.6-2.3); Non-African American GFR(CKD) >90 (>60 ml/min/1.73 sqM); Potassium 4.6 mmol/L (3.5-5.1); Sodium 134 mmol/L (137-145); Total Bilirubin 0.4 mg/dL (0.2-1.3); Total Protein 6.6 g/dL (6.3-8.2)
[2019-10-10 09:28] LABS: INR 0.9 (<1.2); Prothrombin Time 9.6 sec (9.0-12.0)
--- NOTE | 2019-10-10 09:31 | XR ---
EXAMINATION TYPE: XR chest 2V DATE OF EXAM: 10/10/2019 COMPARISON: 06/16/2019 TECHNIQUE: PA and lateral views submitted. HISTORY: Shortness of breath FINDINGS: The lungs are clear and there is no pneumothorax, pleural effusion, or focal pneumonia. Hyperinflat ion noted with chronic rib deformities and diffuse osteopenia. Remote trauma the right humerus. Heart size normal. Atherosclerotic change aorta. Chronic deformity of the right clavicle. Nodular density overlying the right Mediport catheter. IMPRESSION: 1. COPD. There is a nodular density underneath the Mediport catheter of indeterminate etiology.
[2019-10-10 09:37] LABS: Basophils % (A) 1 %; Eosinophils # (A) 0.1 k/uL (0-0.7); Eosinophils % (A) 3 %; HCT 43.7 % (34.0-46.0); HGB 14.3 gm/dL (11.4-16.0); Lymphocytes # (A) 0.4 k/uL (1.0-4.8); Lymphocytes % (A) 12 %; MCH 32.2 pg (25.0-35.0); MCHC 32.7 g/dL (31.0-37.0); MCV 98.4 fL (80.0-100.0); Mean Platelet Volume 8.1; Monocytes # (A) 0.3 k/uL (0-1.0); Monocytes % (A) 9 %; Neutrophils # (A) 2.3 k/uL (1.3-7.7); Neutrophils % (A) 73 %; Platelet Count 158 k/uL (150-450); RBC 4.44 m/uL (3.80-5.40); RDW 13.7 % (11.5-15.5); WBC 3.2 k/uL (3.8-10.6)
--- NOTE | 2019-10-10 10:47 | CT ---
EXAMINATION TYPE: CT angio chest DATE OF EXAM: 10/10/2019 10:27 AM COMPARISON: CT scan 12/19/2018 HISTORY: PE, SOB CT DLP: 290.5 mGycm Automated exposure control for dose reduction was used. CONTRAST: CTA scan of the thorax is performed with IV Contrast, patient injected with 50 mL of Isovue 370, pulm onary embolism protocol. . FINDINGS: LUNGS: Subsegmental changes are seen. Coarsened interstitium could been the basis of chronic intersti tial lung disease. There is a subpleural nodule measuring 7 mm in the superior segment right lower lo be image 71. No pleural effusion or pneumothorax.. 3 mm subpleural nodule left upper lobe. Additional 1 mm subpleural nodule image 106 posteriorly and 3 mm nodule 108 anteriorly. There is a 2 mm nodule image 82 and right superior segment lower lobe MEDIASTINUM: Nondiagnostic assessment of pulmonary arteries. There is no contrast within the pulmonar y arteries. Aorta of normal caliber. Coronary artery calcifications are seen. Heart size normal. OTHER: Numerous soft tissue calcifications are seen and also noted on prior exam.. Chronic rib defor mities are seen. Degenerative change of the spine. IMPRESSION: 1. There is no contrast within the pulmonary arteries. Exam is nondiagnostic for pulmonary embolus. 2. Numerous subcutaneous calcifications and soft tissue edema involving the chest. Findings stable fr om prior CT scan. 3. Subpleural nodules are too small to characterize. However, they appear new from the recent PET/CT scan and metastasis is in the differential diagnosis.
[2019-10-10 11:18] VITALS: BP 148/79; PULSE 87; RESP 18; TEMP 98.5
[2019-10-10 11:19] LABS: Appearance,Urine Clear (Clear); Bilirubin,Urine Negative (Negative); Blood,Urine Negative (Negative); Color,Urine Light Yellow; Glucose,Urine (UA) Negative (Negative); Ketones,Urine 1+ (Negative); Leukocyte Esterase,Urine Negative (Negative); Nitrite,Urine Negative (Negative); PH, Urine 5.5 (5.0-8.0); Protein,Urine Negative (Negative); Specific Gravity,Urine 1.023 (1.001-1.035); Urobilinogen,Urine <2.0 mg/dL (<2.0)
== END 2019-10-10 12:04 | disposition left against medical advice (07) ==
LOC: EC 07:58
DX: F41.9 Anxiety disorder, unspecified (principal); R79.1 Abnormal coagulation profile; R42 Dizziness and giddiness; R91.8 Other nonspecific abnormal finding of lung field; J44.9 Chronic obstructive pulmonary disease, unspecified; M06.9 Rheumatoid arthritis, unspecified; Z87.891 Personal history of nicotine dependence; Z88.0 Allergy status to penicillin; Z88.8 Allergy status to other drugs, medicaments and biological substances; Z79.891 Long term (current) use of opiate analgesic; Z79.899 Other long term (current) drug therapy; Z85.038 Personal history of other malignant neoplasm of large intestine; Z90.49 Acquired absence of other specified parts of digestive tract; Z53.29 Procedure and treatment not carried out because of patient's decision for other reasons
CPT/HCPCS: 99285; 96374; 96375; 96361 ×2; 36415; 93005; 85379; 83880; 80053; 83605; 83690; 83735; 84484; 85025; 85610; 81003; 87040; 71046; 71275; J2060; J2405; Q9967

== ENCOUNTER 2019-11-28 17:48 | Emergency (ER) | payer MEDICARE, OTHER ==
[2019-11-28 18:24] VITALS: TEMP 98.2
[2019-11-28] MEDS ORDERED: SODIUM CHLORIDE 0.9% 1,000 ML IV STA (18:31)
[2019-11-28] MEDS ORDERED: ALBUTEROL HFA INHALER INHALATION STA (18:31)
[2019-11-28 18:46] LABS: Basophils % (A) 0 %; Eosinophils # (A) 0.1 k/uL (0-0.7); Eosinophils % (A) 1 %; HCT 39.4 % (34.0-46.0); HGB 12.9 gm/dL (11.4-16.0); Lymphocytes # (A) 0.6 k/uL (1.0-4.8); Lymphocytes % (A) 8 %; MCH 31.8 pg (25.0-35.0); MCHC 32.8 g/dL (31.0-37.0); MCV 97.1 fL (80.0-100.0); Mean Platelet Volume 7.4; Monocytes # (A) 0.3 k/uL (0-1.0); Monocytes % (A) 4 %; Neutrophils # (A) 6.6 k/uL (1.3-7.7); Neutrophils % (A) 85 %; RBC 4.06 m/uL (3.80-5.40); WBC 7.7 k/uL (3.8-10.6)
--- NOTE | 2019-11-28 18:51 | ED ---
SOB HPI - General Chief Complaint: Shortness of Breath Stated Complaint: SOB/fever Time Seen by Provider: 11/28/19 18:16 Source: EMS Mode of arrival: EMS Limitations: no limitations - History of Present Illness Initial Comments: Patient is a 74-year-old female, with history of colon cancer, not currently receiving treatment, COPD, presenting to the emergency Department with complaints of shortness of breath that has been increasing over the past 2 wee ks. She is also experiencing a cough with production, increase in generalized weakness and fatigue. She states she has not been able to drink much the last few days. She denies any chest pain, abdominal pain, diarrhea. She does admit to nausea and dry heaving at times. Patient admits to right-sided abdominal pain and back pain but states that is secondary to tumors in the area. She states this is not new. She was recently started on home O2, dosages unknown. She denies any recent fever. She has no other complaints. Upon arrival to the ER, patient is tachycardia, 98% on 2 L. - Related Data Home Medications Medication Instructions Recorded Confirmed Omeprazole [PriLOSEC] 20 mg PO DAILY 05/06/14 11/28/19 Ergocalciferol (Vitamin D2) 50,000 unit PO SA 03/23/18 11/28/19 [Vitamin D2] HYDROcodone/APAP 10-325MG [[place] 1 tab PO Q6H PRN 10/10/19 11/28/19 10-325] Ipratropium-Albuterol Nebulize 3 ml INHALATION RT-QID 10/10/19 11/28/19 [Duoneb 0.5 mg-3 mg/3 ml Soln] Lactulose 20 gm PO DAILY 10/10/19 11/28/19 Ondansetron [Zofran] 4 mg PO Q8H PRN 10/10/19 11/28/19 Vitamin B Complex 1 cap PO DAILY 10/10/19 11/28/19 ALPRAZolam [Xanax] 0.25 mg PO DIRECTED 11/28/19 11/28/19 Albuterol Sulfate [Ventolin HFA] 1 puff INHALATION RT-BID 11/28/19 11/28/19 Morphine Sulfate ER [Ms Contin] 30 mg PO TID 11/28/19 11/28/19 Previous Rx's Medication Instructions Recorded Gabapentin [Neurontin] 400 mg PO TID cap 06/04/19 Magnesium Oxide [Mag-Ox] 400 mg PO DAILY 30 Days #30 tablet 06/04/19 Potassium Chloride [K-Tab ER] 20 meq PO DAILY 30 Days #30 06/04/19 tablet.er Allergies Allergy/AdvReac Type Severity Reaction Status Date / Time Penicillins Allergy Severe Swelling/Ra Verified 11/28/19 18:49 sh marijuana AdvReac seizures Verified 11/28/19 18:49 Review of Systems ROS Statement: Those systems with pertinent positive or pertinent negative responses have been documented in the HPI. ROS Other: All systems not noted in ROS Statement are negative. Past Medical History Past Medical History: Asthma, Cancer, COPD, Deep Vein Thrombosis (DVT), Eye Disorder, Liver Disease, Pneumonia, Rheumatoid Arthritis (RA), Seizure Disorder Additional Past Medical History / Comment(s): HX PLEURISY CHILD; HAS "COMPROMISED LUNGS," BRONCHITIS AND PNEUMONIA NUMEROUS TIMES. HX R PNEUMOTHORAX 30 YRS AGO. NUMEROUS FX, TEETH KNOCKED OUt, HX RLS. HX OF SEIZURES, HX Hepatitis C at 16 yrs of age. RT eye Glaucoma. thrombophlebitis x2, [place] COLON, History of Any Multi-Drug Resistant Organisms: None Reported Past Surgical History: Bowel Resection, Tonsillectomy Additional Past Surgical History / Comment(s): Colonoscopy. KIDNEY STONE REMOVAL. bowel surgery due to CA Past Anesthesia/Blood Transfusion Reactions: No Reported Reaction Past Psychological History: No Psychological Hx Reported Smoking Status: Former smoker Past Alcohol Use History: Occasional Past Drug Use History: None Reported - Past Family History Father Family Medical History: No Reported History Mother Family Medical History: Cancer, Coronary Artery Disease (CAD), Diabetes Mellitus Additional Family Medical History / Comment(s): Colon cancer Daughter(s) Family Medical History: Cancer Additional Family Medical History / Comment(s): Hodgkins General Exam - General Exam Comments Initial Comments: GENERAL: Patient appears fatigued, very thin, in no acute distress. HEAD: Atraumatic, normocephalic. EYES: Pupils equal round and reactive to light, extraocular movements intact, sclera anicteric, conjunctiva are normal. ENT: TMs normal, nares patent, oropharynx clear without exudates. Moist mucous membranes. NECK: Normal range of motion, supple without lymphadenopathy or JVD. LUNGS: Decreased breath sounds bilaterally. No wheezes rales or rhonchi. HEART: Regular rate and rhythm without murmurs, rubs or gallops. ABDOMEN: Soft, nontender, normoactive bowel sounds. No guarding, no rebound. No masses appreciated. : Deferred EXTREMITIES: Normal range of motion, no pitting or edema. No clubbing or cyanosis. NEUROLOGICAL: Cranial nerves II through XII grossly intact. Normal speech, normal gait. PSYCH: Normal mood, normal affect. SKIN: Warm, Dry, normal turgor, no rashes or lesions noted. Limitations: no limitations Course Vital Signs 11/28/19 11/28/19 11/28/19 17:50 18:00 18:10 Temperature 98.2 F Pulse Rate 105 H 112 H Respiratory 18 18 20 Rate Blood Pressure 121/87 121/87 O2 Sat by Pulse 98 98 Oximetry 11/28/19 18:59 Temperature Pulse Rate 99 Respiratory 18 Rate Blood Pressure 116/57 O2 Sat by Pulse 98 Oximetry Medical Decision Making - Medical Decision Making Patient is a 74-year-old female here for shortness of breath has been increasing over the past 3 weeks. Her vitals are stable upon arrival. EKG shows no acute changes. Chest x-ray shows COPD, lab workup shows no acute changes, negative d-dimer, negative Covid. Patient was given fluids as well as albuterol treatment has a resting completely the ER. Patient will be given a dose of steroids. She is stable for discharge. Patient is agreeable with this plan of care. She'll follow-up with her PCP tomorrow. Return parameters were discussed with the patient she verbalized understanding. Case discussed with Dr. Castrejon. - Lab Data Result diagrams: 11/28/19 18:00 11/28/19 18:00 Lab Results 11/28/19 11/28/19 11/28/19 Range/Units 18:00 18:00 18:00 WBC 7.7 (3.8-10.6) k/uL RBC 4.06 (3.80-5.40) m/uL Hgb 12.9 (11.4-16.0) gm/dL Hct 39.4 (34.0-46.0) % MCV 97.1 (80.0-100.0) fL MCH 31.8 (25.0-35.0) pg MCHC 32.8 (31.0-37.0) g/dL RDW 14.0 (11.5-15.5) % Plt Count 381 D (150-450) k/uL Neutrophils % 85 % Lymphocytes % 8 % Monocytes % 4 % Eosinophils % 1 % Basophils % 0 % Neutrophils # 6.6 (1.3-7.7) k/uL Lymphocytes # 0.6 L (1.0-4.8) k/uL Monocytes # 0.3 (0-1.0) k/uL Eosinophils # 0.1 (0-0.7) k/uL Basophils # 0.0 (0-0.2) k/uL PT 9.4 (9.0-12.0) sec INR 0.9 (<1.2) APTT 25.2 (22.0-30.0) sec D-Dimer 0.55 (<0.60) mg/L FEU Sodium 134 L (137-145) mmol/L Potassium 4.4 (3.5-5.1) mmol/L Chloride 103 (98-107) mmol/L Carbon Dioxide 20 L (22-30) mmol/L Anion Gap 11 mmol/L BUN 10 (7-17) mg/dL Creatinine 0.34 L (0.52-1.04) mg/dL Est GFR (CKD-EPI)AfAm >90 (>60 ml/min/1.73 sqM) Est GFR (CKD-EPI)NonAf >90 (>60 ml/min/1.73 sqM) Glucose 93 (74-99) mg/dL Plasma Lactic Acid Mauri (0.7-2.0) mmol/L Calcium 9.6 (8.4-10.2) mg/dL Magnesium 2.0 (1.6-2.3) mg/dL Total Bilirubin 0.5 (0.2-1.3) mg/dL AST 45 H (14-36) U/L ALT 27 (4-34) U/L Alkaline Phosphatase 227 H (38-126) U/L Troponin I (0.000-0.034) ng/mL Total Protein 7.1 (6.3-8.2) g/dL Albumin 3.6 (3.5-5.0) g/dL Coronavirus (PCR) (Not Detectd) 11/28/19 11/28/19 11/28/19 Range/Units 18:00 18:00 18:00 WBC (3.8-10.6) k/uL RBC (3.80-5.40) m/uL Hgb (11.4-16.0) gm/dL Hct (34.0-46.0) % MCV (80.0-100.0) fL MCH (25.0-35.0) pg MCHC (31.0-37.0) g/dL RDW (11.5-15.5) % Plt Count (150-450) k/uL Neutrophils % % Lymphocytes % % Monocytes % % Eosinophils % % Basophils % % Neutrophils # (1.3-7.7) k/uL Lymphocytes # (1.0-4.8) k/uL Monocytes # (0-1.0) k/uL Eosinophils # (0-0.7) k/uL Basophils # (0-0.2) k/uL PT (9.0-12.0) sec INR (<1.2) APTT (22.0-30.0) sec D-Dimer (<0.60) mg/L FEU Sodium (137-145) mmol/L Potassium (3.5-5.1) mmol/L Chloride (98-107) mmol/L Carbon Dioxide (22-30) mmol/L Anion Gap mmol/L BUN (7-17) mg/dL Creatinine (0.52-1.04) mg/dL Est GFR (CKD-EPI)AfAm (>60 ml/min/1.73 sqM) Est GFR (CKD-EPI)NonAf (>60 ml/min/1.73 sqM) Glucose (74-99) mg/dL Plasma Lactic Acid Mauri 1.1 (0.7-2.0) mmol/L Calcium (8.4-10.2) mg/dL Magnesium (1.6-2.3) mg/dL Total Bilirubin (0.2-1.3) mg/dL AST (14-36) U/L ALT (4-34) U/L Alkaline Phosphatase (38-126) U/L Troponin I <0.012 (0.000-0.034) ng/mL Total Protein (6.3-8.2) g/dL Albumin (3.5-5.0) g/dL Coronavirus (PCR) Not Detected (Not Detectd) - EKG Data EKG Comments: Sinus tach, low voltage QRS, no signs of acute ischemia. Ventricular rate 108, W[place] interval 150, QTC 444. Disposition Clinical Impression: COPD exacerbation Disposition: HOME SELF-CARE Condition: Stable Instructions (If sedation given, give patient instructions): COPD (Chronic Obstructive Pulmonary Disease) (ED) Additional Instructions: Please return to the Emergency Department if symptoms worsen or any other concerns. Follow-up with PCP as discussed tomorrow. Is patient prescribed a controlled substance at d/c from ED?: No Referrals: Bailey Mart MD [Primary Care Provider] - 1-2 days
[2019-11-28 18:53] LABS: Platelet Count 381 k/uL (150-450)
[2019-11-28 18:54] LABS: ALT 27 U/L (4-34); AST 45 U/L (14-36); African American GFR (CKD) >90 (>60 ml/min/1.73 sqM); Albumin 3.6 g/dL (3.5-5.0); Alkaline Phosphatase 227 U/L (38-126); Anion Gap 11 mmol/L; Blood Urea Nitrogen 10 mg/dL (7-17); Calcium 9.6 mg/dL (8.4-10.2); Carbon Dioxide 20 mmol/L (22-30); Chloride 103 mmol/L (98-107); Glucose 93 mg/dL (74-99); Non-African American GFR(CKD) >90 (>60 ml/min/1.73 sqM); Potassium 4.4 mmol/L (3.5-5.1); Sodium 134 mmol/L (137-145); Total Bilirubin 0.5 mg/dL (0.2-1.3); Total Protein 7.1 g/dL (6.3-8.2)
[2019-11-28 18:57] LABS: D-Dimer 0.55 mg/L FEU (<0.60); INR 0.9 (<1.2); Partial Thromboplastin Time 25.2 sec (22.0-30.0); Prothrombin Time 9.4 sec (9.0-12.0)
[2019-11-28 18:59] VITALS: PULSE 99; RESP 18
--- NOTE | 2019-11-28 19:17 | XR ---
EXAMINATION TYPE: XR chest 1V portable DATE OF EXAM: 11/28/2019 COMPARISON: 10/10/2019 HISTORY: Short of breath TECHNIQUE: FINDINGS: There is pulmonary hyperinflation with some flattening of the diaphragm. There is some coar sening of the lung markings at the lung bases. There is no pulmonary consolidation. There are no jemima r masses. Heart size is normal. There are chest leads. There are old right-sided healed rib fractures . There is right central venous catheter with tip in the superior vena cava. IMPRESSION: COPD. Minimal fibrotic changes. Lung markings slightly increased in the right lower lobe compared to old exam. No heart failure.
[2019-11-28] MEDS ORDERED: ONDANSETRON 4 MG/2 ML VIAL IVP STA (19:45)
[2019-11-28] MEDS ORDERED: methylPREDNISolone SOD SUCCI 125 MG/2 ML VIAL IV STA (19:45)
[2019-11-28] MEDS ORDERED: MORPHINE SULFATE 4 MG/ML SYRINGE IVP STA (19:45)
[2019-11-28 20:32] VITALS: BP 132/74
== END 2019-11-28 21:23 | disposition home or self-care (01) ==
LOC: EC 17:48
DX: Z03.818 Encounter for observation for suspected exposure to other biological agents ruled out (principal); J44.1 Chronic obstructive pulmonary disease with (acute) exacerbation; B19.20 Unspecified viral hepatitis C without hepatic coma; M06.9 Rheumatoid arthritis, unspecified; Z79.51 Long term (current) use of inhaled steroids; Z79.891 Long term (current) use of opiate analgesic; Z79.899 Other long term (current) drug therapy; Z99.81 Dependence on supplemental oxygen; Z88.0 Allergy status to penicillin; Z91.048 Other nonmedicinal substance allergy status; Z86.718 Personal history of other venous thrombosis and embolism; Z87.891 Personal history of nicotine dependence; Z85.038 Personal history of other malignant neoplasm of large intestine; Z87.09 Personal history of other diseases of the respiratory system
CPT/HCPCS: 36415; 93005; 85379; 80053; 83605; 83735; 84484; 85025; 85610; 85730; 87635; 71045; 99285; 96374; 96375 ×2; 96361; J2270; J2930; J2405